=== PATIENT | female | born 1950 | race Caucasian/White ===

== ENCOUNTER 2017-02-10 10:36 | Emergency (ER) | payer MEDICARE ==
[2017-02-10 11:16] VITALS: RESP 18
--- NOTE | 2017-02-10 12:11 | RAD ---
PROCEDURE: Bilateral Knee Radiographs. HISTORY: knee pain, no trauma COMPARISON: None. FINDINGS: BONES: Right Knee: No fracture. Left Knee: No fracture. JOINTS: Right Knee: Mild tibial femoral compartment narrowing. Left knee: Mild tibiofemoral compartment narrowing. SOFT TISSUES: Right Knee: Normal. Left Knee: Normal. JOINT EFFUSION: Right Knee: None. Left Knee: None. OTHER FINDINGS: None. IMPRESSION: No demonstrated fracture or dislocation. Mild bilateral tibial femoral compartment narrowing.
--- NOTE | 2017-02-10 12:44 | ED PDOC ---
Lower Extremity Pain/Injury Time Seen by Provider: 02/10/17 10:56 Chief Complaint (Nursing): Lower Extremity Problem/Injury Chief Complaint (Provider): Bilateral knee pain, weakness History Per: Patient History/Exam Limitations: no limitations Onset/Duration Of Symptoms: Days Current Symptoms Are (Timing): Still Present Severity: Mild Pain Scale Rating Of: 3 Additional Complaint(s): Pt states she feels like both her knees are weak and she has trouble walking from pain. Pt states the more she walks the worse it feels. No swelling, no trauma. Past Medical History Reviewed: Historical Data, Nursing Documentation, Vital Signs Vital Signs: Last Vital Signs Temp 97.8 F 02/10/17 11:12 Pulse 103 H 02/10/17 11:12 Resp 18 02/10/17 11:12 BP 134/71 02/10/17 11:12 Pulse Ox 100 02/10/17 11:12 - Medical History PMH: Diabetes, HTN - Surgical History Surgical History: No Surg Hx - Family History Family History: States: No Known Family Hx - Living Arrangements Living Arrangements: With Family - Social History Current smoker - smoking cessation education provided: No - Home Medications Home Medications: Ambulatory Orders Medication Instructions Recorded Alendronate [Fosamax] 70 mg PO QD7 02/10/17 Glimepiride [Amaryl] 4 mg PO BID 02/10/17 Insulin Glargine,Hum.rec.anlog 300 units SQ HS 02/10/17 [Toujeo Solostar] Naproxen [Anaprox DS] 550 mg PO BID 02/10/17 Pravastatin Sodium [Pravachol] 20 mg PO HS 02/10/17 Sitagliptin Phos/Metformin HCl 1 tab PO BID 02/10/17 [Janumet 50-500 mg Tablet] - Allergies Allergies/Adverse Reactions: Allergies Allergy/AdvReac Type Severity Reaction Status Date / Time No Known Allergies Allergy Verified 02/10/17 11:16 Review of Systems ROS Statement: Except As Marked, All Systems Reviewed And Found Negative Constitutional: Negative for: Fever, Chills Musculoskeletal: Positive for: Leg Pain Physical Exam - Reviewed Nursing Documentation Reviewed: Yes Vital Signs Reviewed: Yes - Physical Exam Appears: Positive for: Well, Non-toxic, No Acute Distress Head Exam: Positive for: ATRAUMATIC, NORMAL INSPECTION, NORMOCEPHALIC Skin: Positive for: Normal Color (No erythema, no ecchymosis, no rash on bilateral LE), Warm Eye Exam: Positive for: Normal appearance ENT: Positive for: Normal ENT Inspection Neck: Positive for: Normal Respiratory: Negative for: Accessory Muscle Use, Respiratory Distress Pulses-Post. Tibialis (L): 2+ Pulses-Post. Tibialis (R): 2+ Back: Positive for: Normal Inspection Extremity: Positive for: Normal ROM, Capillary Refill. Negative for: Tenderness , Deformity, Swelling Neurologic/Psych: Positive for: Alert, Oriented - ECG O2 Sat by Pulse Oximetry: 100 Medical Decision Making Medical Decision Making: Discussed f/u with orthopedics. Pt states she has appointment with PMD in february. Disposition - Clinical Impression Clinical Impression: Bilateral knee pain - Patient ED Disposition Is Patient to be Admitted: No Counseled Patient/Family Regarding: Diagnosis, Need For Followup - Disposition Referrals: Roman Carrizales MD [Staff Provider] - Disposition: Routine/Home Disposition Time: 12:45 Condition: STABLE Instructions: Knee Pain (ED)
[2017-02-10 14:10] VITALS: BP 134/70; PULSE 70; TEMP 98.8; O2SAT 98
== END 2017-02-10 14:10 | disposition home or self-care (01) ==
LOC: H.ER 10:36
DX: M25.569 Pain in unspecified knee (principal); E11.9 Type 2 diabetes mellitus without complications; Z79.4 Long term (current) use of insulin; I10 Essential (primary) hypertension

== ENCOUNTER 2017-02-24 09:30 | Inpatient (IN) | payer MEDICARE ==
[2017-02-24] MEDS ORDERED: Dextrose 50% SYRINGE Inj (50 ml) IVP ONE (09:40)
--- NOTE | 2017-02-24 10:06 | ED PDOC ---
HPI: SOB/CHF/COPD Time Seen by Provider: 02/24/17 09:40 Chief Complaint (Nursing): Shortness Of Breath Chief Complaint (Provider): Shortness Of Breath History Per: Patient History/Exam Limitations: no limitations Onset/Duration Of Symptoms: Days (x2) Current Symptoms Are (Timing): Still Present Additional Complaint(s): 66 year old female with previous medical history of diabetes and hypertension, who presents to the emergency department via EMS with a complaint of progressively worsening shortness of breath on exertion associated with bilateral leg swelling ongoing for 2 days. Denied any cough, chest pain or dizziness. Blood glucose noted at 31 upon arrival to ED. Patient reported taking insulin injection this morning but did not have breakfast. PMD: none provided Past Medical History Reviewed: Historical Data, Nursing Documentation, Vital Signs Vital Signs: Last Vital Signs Temp Pulse Resp 18 02/24/17 09:43 BP Pulse Ox - Medical History PMH: Diabetes, HTN (denies) - Family History Family History: States: Unknown Family Hx - Social History Current smoker - smoking cessation education provided: Yes Alcohol: None Drugs: Denies - Home Medications Home Medications: Ambulatory Orders Medication Instructions Recorded Alendronate [Fosamax] 70 mg PO QD7 02/10/17 Glimepiride [Amaryl] 4 mg PO BID 02/10/17 Insulin Glargine,Hum.rec.anlog 300 units SQ HS 02/10/17 [Toujeo Solostar] Naproxen [Anaprox DS] 550 mg PO BID 02/10/17 Pravastatin Sodium [Pravachol] 20 mg PO HS 02/10/17 Sitagliptin Phos/Metformin HCl 1 tab PO BID 02/10/17 [Janumet 50-500 mg Tablet] - Allergies Allergies/Adverse Reactions: Allergies Allergy/AdvReac Type Severity Reaction Status Date / Time No Known Allergies Allergy Verified 02/10/17 11:16 Review of Systems ROS Statement: Except As Marked, All Systems Reviewed And Found Negative Cardiovascular: Negative for: Chest Pain Respiratory: Positive for: SOB with Exertion. Negative for: Cough Musculoskeletal: Positive for: Other (bilateral lower extremities) Physical Exam - Reviewed Nursing Documentation Reviewed: Yes Vital Signs Reviewed: Yes - Physical Exam ENT: Positive for: Other (dry mucous membranes) Cardiovascular/Chest: Positive for: Regular Rate, Rhythm, Chest Non Tender Respiratory: Positive for: Rales (and crepitus in right lower lobe). Negative for: Normal Breath Sounds, Respiratory Distress Gastrointestinal/Abdominal: Positive for: Normal Exam, Soft. Negative for: Tenderness Extremity: Positive for: Normal ROM (lower bilaterally). Negative for: Tenderness (lower bilaterally), Pedal Edema (bilateral), Calf Tenderness ( bilateral) Neurologic/Psych: Positive for: Alert (x3), apartment maintenance II-XII (intact), Oriented. Negative for: Motor/Sensory Deficits (or focal deficits) - Laboratory Results Result Diagrams: 02/24/17 10:31 02/24/17 10:31 Medical Decision Making Medical Decision Making: Initial Impression: Shortness of breath Initial Plan: * EKG * CMP * Troponin I * Urine dipstick * CBC * D Dimer * CXR * Dextrose 500ml IV per 100mls/hr * Dextrose 50% inj 50ml IVP Scribe Attestation: Documented by Sayda Aguilera, acting as a scribe for Mihir Gutierrez MD. Provider Scribe Attestation: All medical record entries made by the Scribe were at my direction and personally dictated by me. I have reviewed the chart and agree that the record accurately reflects my personal performance of the history, physical exam, medical decision making, and the department course for this patient. I have also personally directed, reviewed, and agree with the discharge instructions and disposition. Disposition - Clinical Impression Clinical Impression: Hypoglycemia, Hypercalcemia, Lung mass - Patient ED Disposition Is Patient to be Admitted: Yes - Disposition Disposition Time: 11:27 Condition: FAIR Forms: [employer] (Wallisian) - Pt Status Changed To: Hospital Disposition Of: Inpatient - Admit Certification Admit to Inpatient:: After my assessment, the patient will require hospitalization for at least two midnights. This is because of the severity of symptoms shown, intensity of services needed, and/or the medical risk in this patient being treated as an outpatient. - POA Present On Arrival: None
[2017-02-24 10:40] LABS: BASO % 0.6 % (0.0-2.0); EOS # 0.2 K/uL (0.0-0.7); EOS % 2.7 % (0.0-4.0); HEMOGLOBIN 9.8 g/dL (12.0-16.0); LYMPH # 1.5 K/uL (1.0-4.3); LYMPH % 18.5 % (20.0-40.0); MEAN CELL VOLUME 72.7 fl (81.0-99.0); MEAN CORPUSCULAR HEMOGLOBIN 23.2 pg (27.0-31.0); MEAN CORPUSCULAR HGB CONC 31.9 g/dL (33.0-37.0); MEAN PLATELET VOLUME 7.9 fl (7.2-11.7); MONO % 12.7 % (0.0-10.0); NEUT # 5.3 K/uL (1.8-7.0); NEUT % 65.5 % (50.0-75.0); RBC 4.2 Mil/uL (3.80-5.20); RED CELL DISTRIBUTION WIDTH 18.6 % (11.5-14.5)
[2017-02-24 11:03] LABS: ALB/GLOB RATIO 0.7 (1.0-2.1); ALBUMIN 3.3 g/dL (3.5-5.0); ALT/SGPT 33 U/L (9-52); AST/SGOT 54 U/L (14-36); BLOOD UREA NITROGEN 13 mg/dl (7-17); CALCIUM 13.6 mg/dL (8.4-10.2); GFR AFRICAN-AMERICAN > 60; GFR NON-AFRICAN AMERICAN > 60
[2017-02-24] MEDS ORDERED: Sodium Chloride 0.9% 1,000 ML IV STA (11:11)
[2017-02-24] MEDS ORDERED: ZOLEDRONIC ACID 5 MG/100 ML IV ONE ×2 (11:11→18:36)
[2017-02-24] MEDS ORDERED: Potassium Chloride 20 mEq ER Tab PO ONE (11:11)
--- NOTE | 2017-02-24 11:44 | RAD ---
HISTORY: COMPARISON: 08/15/2016 TECHNIQUE: Chest PA and lateral FINDINGS: LINES AND TUBES: None. LUNG AND PLEURA: Since the prior examination, there has been significant interval increase in size of left upper lobe opacity measuring 6.9 x 6.5 cm. The lungs are hyperinflated and there is peribronchial thickening with streaky opacities in the lungs. There is biapical pleural thickening. There is bronchiectasis in the left lower lobe. HEART AND MEDIASTINUM: The heart is not enlarged. The hilar and mediastinal contours are within normal limits. SKELETAL STRUCTURES: The bony structures are within normal limits for the patient's age. VISUALIZED UPPER ABDOMEN: Normal. OTHER FINDINGS: None. IMPRESSION: Findings are concerning for left upper lobe mass significantly increased in size since the prior examination now measuring 6.[address] scan of the thorax with intravenous contrast is recommended for further evaluation. COPD. Left lower lobe bronchiectasis.
[2017-02-24] MEDS ORDERED: Iodixanol 320 MG/ML 100 ML BOTTLE IV ONE ×2 (12:48→15:39)
[2017-02-24] MEDS ORDERED: Sodium Chloride 0.9% 50 ML IV ONE ×2 (12:49→15:39)
[2017-02-24] MEDS ORDERED: Diatriz Meglumine/Diatriz Sod 30 ML BOTTLE PO ONE (12:55)
[2017-02-24] MEDS ORDERED: Iohexol 240 (50 ml) PO ONE (12:55)
[2017-02-24] MEDS ORDERED: Iohexol 240 (50 ml) ONE (13:11)
--- NOTE | 2017-02-24 13:29 | CP.PCM.HP ---
History of Present Illness - History of Present Illness History of Present Illness: Family Medicine H&P 66 year old female PMHx IDDM, HLD, osteoporosis, hx of lung mass seen in ED regarding worsening SOB on exertion. Patient reports SOB that started 3 weeks ago; states she has to take frequent breaks when cooking, cleaning, or walking short distances. Denies any cough, chest pain, or hemoptysis. Patient admits to current daily tobacco use (1/2 PPD for 15 years). Patient also complains of generalized weakness and lethargy. Per chart, blood glucose was found to be 31 upon presentation to [facility] ED; patient reported taking insulin injection this morning but did not have breakfast. Patient also complains of weakness in both legs with associated swelling in her feet. Patient states her Metformin dosage medication was changed approximately 6 months ago and believes that since then she has lost 25 pounds and has become more weak with worsening balance issues. Patient was previously seen in [facility] for COPD follow up visit and to discuss significant findings of lung mass on CXR; patient refused as she did not want to have further testing or discuss findings on imaging. Today, patient is agreeable to further evaluation of lung mass however does not want to have case discussed with family. Denies any nausea, vomiting, fever, diarrhea, chills, abd pain, chest pain, or palpitations. ED Course: CBC w/diff: 8.0>9.8/30.6<417 CMP: 142/3.3, 103/32, 13/0.8, glucose 52, calcium 13.6, albumin 3.3 D-dimer: 744 EKG: NSR, RBBB Troponin I: < 0.0120 CXR: Left upper lobe mass measuring 6.9 x 6.5cm, increased in size since prior exam Dextrose 500ml IV per 100mls/hr Dextrose 50% inj 50ml IVP PMHx: IDDM, HLD, osteoporosis, hx of pancreatitis, hx of lung mass PSH: gall bladder sx, ORIF left ankle FH: Mother had DM, HTN, HLD; father had cancer/unknown SH: Current tobacco use (1/2 PPD for 15 years), previous ETOH abuse for 15 years (quit 11 years ago), denies illicit drug use; pt does not want to have case discussed with family All: NKDA ROS: 12 points assessed and negative unless otherwise reported in HPI Present on Admission - Present on Admission Any Indicators Present on Admission: Yes History of Uncontrolled Diabetes: Yes Review of Systems - Review of Systems All systems: reviewed and no additional remarkable complaints except (as per HPI ) Past Patient History - Infectious Disease Hx of Infectious Diseases: None - Past Social History Alcohol: None Drugs: Denies - CARDIAC Hx Hypertension: Yes (denies) - PULMONARY Hx Respiratory Disorders: No - NEUROLOGICAL Hx Neurological Disorder: No - ENDOCRINE/METABOLIC Hx Endocrine Disorders: Yes Hx Diabetes Mellitus Type 2: Yes - HEMATOLOGICAL/ONCOLOGICAL Hx Blood Disorders: No - INTEGUMENTARY Hx Dermatological Problems: No - MUSCULOSKELETAL/RHEUMATOLOGICAL Hx Musculoskeletal Disorders: Yes Other/Comment: left leg fracture - GASTROINTESTINAL Hx Gastrointestinal Disorders: No - GENITOURINARY/GYNECOLOGICAL Hx Genitourinary Disorders: No - PSYCHIATRIC Hx Psychophysiologic Disorder: No Hx Substance Use: No - SURGICAL HISTORY Hx Surgeries: Yes Other/Comment: left leg surgery - ANESTHESIA Hx Anesthesia: Yes Hx Anesthesia Reactions: No Meds Allergies/Adverse Reactions: Allergies Allergy/AdvReac Type Severity Reaction Status Date / Time No Known Allergies Allergy Verified 02/10/17 11:16 Physical Exam - Constitutional Appears: Toxic, Cachectic - Head Exam Head Exam: ATRAUMATIC, NORMAL INSPECTION, NORMOCEPHALIC - Eye Exam Eye Exam: EOMI, Normal appearance Pupil Exam: NORMAL ACCOMODATION, PERRL - ENT Exam ENT Exam: Mucous Membranes Moist, Normal Exam - Neck Exam Neck exam: Positive for: Full Rom, Normal Inspection. Negative for: Tenderness - Respiratory Exam Respiratory Exam: Decreased Breath Sounds, Rhonchi. absent: Chest Wall Tenderness, Wheezes - Cardiovascular Exam Cardiovascular Exam: REGULAR RHYTHM, +S1, +S2 - GI/Abdominal Exam GI & Abdominal Exam: Normal Bowel Sounds, Soft. absent: Tenderness - Extremities Exam Extremities exam: Positive for: normal capillary refill, pedal edema (+2 pitting pedal edema L>R). Negative for: calf tenderness - Back Exam Back exam: NORMAL INSPECTION. absent: CVA tenderness (L), CVA tenderness (R), tenderness - Neurological Exam Neurological exam: Alert, Oriented x3 - Psychiatric Exam Psychiatric exam: Normal Affect, Normal Mood - Skin Skin Exam: Dry, Intact, Normal Color, Warm Results - Vital Signs Recent Vital Signs: Last Vital Signs Temp Pulse Resp 18 02/24/17 09:43 BP Pulse Ox - Labs Result Diagrams: 02/24/17 10:31 02/24/17 10:31 Labs: Laboratory Results - last 24 hr 02/24/17 02/24/17 02/24/17 10:18 10:31 10:31 WBC 8.0 RBC 4.20 Hgb 9.8 L Hct 30.6 L MCV 72.7 L D MCH 23.2 L MCHC 31.9 L RDW 18.6 H Plt Count 417 H MPV 7.9 Neut % (Auto) 65.5 Lymph % (Auto) 18.5 L [place] % (Auto) 12.7 H Eos % (Auto) 2.7 Baso % (Auto) 0.6 Neut # 5.3 Lymph # 1.5 [place] # 1.0 H Eos # 0.2 Baso # 0.0 D-Dimer, Quantitative Sodium 142 Potassium 3.3 L Chloride 103 Carbon Dioxide 32 H Anion Gap 10 BUN 13 Creatinine 0.8 Est GFR ( Amer) > 60 Est GFR (Non-Af Amer) > 60 POC Glucose (mg/dL) 80 Random Glucose 52 L Calcium 13.6 H* D Total Bilirubin 0.2 AST 54 H D ALT 33 Alkaline Phosphatase 99 Troponin I < 0.0120 Total Protein 8.3 H Albumin 3.3 L Globulin 4.9 H Albumin/Globulin Ratio 0.7 L 02/24/17 02/24/17 10:31 11:37 WBC RBC Hgb Hct MCV MCH MCHC RDW Plt Count MPV Neut % (Auto) Lymph % (Auto) [place] % (Auto) Eos % (Auto) Baso % (Auto) Neut # Lymph # [place] # Eos # Baso # D-Dimer, Quantitative 744 H Sodium Potassium Chloride Carbon Dioxide Anion Gap BUN Creatinine Est GFR ( Amer) Est GFR (Non-Af Amer) POC Glucose (mg/dL) 129 H Random Glucose Calcium Total Bilirubin AST ALT Alkaline Phosphatase Troponin I Total Protein Albumin Globulin Albumin/Globulin Ratio Assessment & Plan (1) Dyspnea Status: Acute (2) Hypoglycemia Status: Acute (3) Hypercalcemia Status: Acute (4) Lung mass Status: Acute (5) Type 2 diabetes mellitus Status: Acute (6) Hyperlipidemia Status: Acute (7) Osteoporosis Status: Acute (8) Underweight Status: Acute (9) DVT prophylaxis Status: Acute - Assessment and Plan (Free Text) Assessment: (1) Dyspnea EKG: NSR, R BBB CXR: Left upper lobe mass measuring 6.9 x 6.5 cm. COPD. left lower lobe bronchiectasis. D-dimer increased @ 744 CTA ordered r/o PE Albuterol 2 puff INH q6 prn Nicotine patch 14mg/24h (2) Hypoglycemia Home meds: glimepiride, insulin glargine -hold glimepiride for now Dextrose 50% inj 50ml IVP given in ED IVF started - NS 250 mL/hr Continue to monitor (3) Hypercalcemia Ca = 13.6 Zoledronic Acid 5mg IV given in ED PTH ordered Will continue to monitor Consider calcitonin if Ca increases above 14 Consider PO bisphosphonate upon d/c (4) Lung mass CXR: Left upper lobe mass significantly increased in size since prior examination now measuring 6.9 x 6.5 cm. COPD. left lower lobe bronchiectasis. Previous CXR (08/15/16): Left upper lobe mass/infiltrate measures approximately 4.[address] C/A/P w/contrast ordered Brain MRI w/contrast ordered HemeOnc consulted, f/u recs (5) Type 2 diabetes mellitus Home meds: glimepiride, insulin glargine -hold glimepiride for now Last A1c (11/25/16) 7.5 Insulin sliding scale Accuchecks ACHS (6) Hyperlipidemia Home med: pravastatin 20mg PO HS (7) Osteoporosis Hold bisphosphonate No calcium/vitamin D indicated as levels are not deficient (8) Underweight Heart healthy diet Glucerna supplements Nutrition consult (9) DVT prophylaxis Lovenox 40mg SC QD
[2017-02-24] MEDS ORDERED: Glucagon Recombinant 1 mg Inj IM PRN (14:37)
[2017-02-24] MEDS ORDERED: Dextrose 50% SYRINGE Inj (50 ml) IV PRN (14:37)
[2017-02-24] MEDS ORDERED: Albuterol HFA 90 mcg/actuation (8 g) INH PRN (14:45)
[2017-02-24] MEDS: Sodium Chloride 0.9% 1,000 ML IV SCH (16:32)
--- NOTE | 2017-02-24 19:33 | CT ---
EXAM: CT Angiography Chest With Intravenous Contrast CLINICAL HISTORY: 66 years old, female; Signs and symptoms; Other: Hypoglycemia, hypercalcemia; Shortness of breath; Additional info: Rul lung mass. R/O p. E. Hypoglycemia. Hypercalcemia TECHNIQUE: Axial computed tomographic angiography images of the chest with intravenous contrast using pulmonary embolism protocol. All CT scans at this facility use one or more dose reduction techniques, viz.: automated exposure control; ma/kV adjustment per patient size (including targeted exams where dose is matched to indication; i.e. head); or iterative reconstruction technique. MIP reconstructed images were created and reviewed. Coronal and sagittal reformatted images were created and reviewed. CONTRAST: 80 mL of [id number] administered intravenously. COMPARISON: No relevant prior studies available. FINDINGS: Heart, aorta and pulmonary arteries Pulmonary arteries: Heart size is normal. There is pericardial thickening. Aorta is normal in caliber. There is perfusion of the 3 arch vessels. Main pulmonary artery is dilated, 3.2 cm in diameter.There are no pulmonary emboli. Lungs and pleural spaces: Trachea and main bronchi are patent. There are paraseptal emphysematous changes in the upper lobes. There are centrilobular emphysematous changes in the upper lobes. There is fibrosis at the lung bases. There is a small left pleural effusion. There is a 7 mm right upper lobe pulmonary nodule. There is a pleural-based 1 x 1.5 x 2 cm left lower lobe nodule. There is a lobulated 8.2 x 7.4 x 8.9 cm left upper lobe mass with infiltration of the adjacent mediastinum and left hilum. There is encasement of the main left pulmonary artery and its peripheral branches. There is narrowing and attenuation of left upper lobe pulmonary branches. There is encasement of the distal left main pulmonary bronchus. There is narrowing and occlusion of left upper lobe bronchi. Mediastinum: There is mediastinal infiltration by the left upper lobe mass. There are enlarged mediastinal nodes. There is left hilar adenopathy contiguous with the mass. There is subcarinal adenopathy. There is shotty right hilar adenopathy. Thyroid: Thyroid is not optimally demonstrated. Bones/joints: Bony structures are osteopenic. There are degenerative changes. Soft tissues: unremarkable Upper abdomen: Refer to report for abdominal findings IMPRESSION: No aneurysm, dissection or pulmonary embolus; emphysema and fibrosis; 8.2 x 7.4 x 8.9 cm left upper lobe mass encasing and narrowing left upper lobe pulmonary arteries and bronchi and infiltrating the mediastinum, findings are consistent with malignancy; emphysema and fibrosis; right upper lobe pulmonary nodule suspicious for metastasis; left lower lobe pleural-based nodule suspicious for metastasis; small left effusion Additional findings as described above. EXAM: CT Abdomen and Pelvis With Intravenous Contrast EXAM DATE/TIME: 02/24/2017 12:55 PM CLINICAL HISTORY: 66 years old, female; Signs and symptoms; Other: Hypoglycemia, hypercalcemia; Shortness of breath; Additional info: Rul lung mass. R/O p. E. Hypoglycemia. Hypercalcemia TECHNIQUE: Axial computed tomography images of the abdomen and pelvis with intravenous contrast. All CT scans at this facility use one or more dose reduction techniques, viz.: automated exposure control; ma/kV adjustment per patient size (including targeted exams where dose is matched to indication; i.e. head); or iterative reconstruction technique. Coronal and sagittal reformatted images were created and reviewed. CONTRAST: 80 mL of [id number] administered intravenously. COMPARISON: CT - ABDOMEN^ABD ROUTINE WO W (ADULT) 2009-01-19 13:55.Report of the prior study is not available for review. FINDINGS: Lower thorax: Refer to prior report for chest findings ABDOMEN: Liver: There are calcifications in the dome of the liver, unchanged. Liver appears mildly enlarged. No focal masses are seen in the liver. There is prominence of the left and caudate lobes. Gallbladder and bile ducts: Gallbladder is absent.There is prominence of the common duct. Pancreas: Pancreas is atrophic. There are coarse calcifications in the pancreatic head. There were one or 2 coarse calcifications in the pancreatic tail. Pancreatic duct is dilated. Spleen: unremarkable Adrenals: unremarkable Kidneys and ureters: There is a small left renal cyst.bKidneys and ureters are otherwise unremarkable. Stomach and bowel: Stomach is incompletely distended which accentuates the gastric wall. Rotation is normal. Proximal small bowel is mildly dilated. There are scattered air-fluid levels. There is mild wall and fold prominence. Distention wall and fold prominence decreased distally. There is no small bowel obstruction. Terminal ileum is unremarkable.There is no pericecal inflammation. There is moderate contrast, stool and air in the colon. Appendix: See stomach and bowel PELVIS: Bladder: unremarkable Reproductive: Uterus and adnexal structures are unremarkable. ABDOMEN and PELVIS: Intraperitoneal space: There is no significant fluid.There is no free air. Bones/joints: There are degenerative changes in the osseus structures. Soft tissues: unremarkable Vasculature: There are vascular calcifications. Lymph nodes: There is no pathologic adenopathy. IMPRESSION: Mild hepatomegaly, unchanged calcifications in the dome of the liver; chronic calcific pancreatitis with pancreatic atrophy; prominent gastric wall, under distention versus true thickening; proximal small bowel dilatation with wall and fold prominence suggesting enteritis; possible constipation Additional findings as described above.
[2017-02-24 19:59] LABS: IRON 19 ug/dL (37-170)
[2017-02-24 20:08] LABS: TOTAL IRON BINDING CAPACITY 218 ug/dL (250-450)
[2017-02-24 20:18] LABS: % IRON SATURATION 9 % (20-55)
[2017-02-24 20:35] LABS: FERRITIN 74.9 ng/Ml (11.1-264.0)
[2017-02-24] MEDS: Pravastatin Sodium 20 MG TAB PO SCH (21:31)
[2017-02-24] MEDS: Insulin Regular 100 units/ml SC SCH (21:33)
[2017-02-24] MEDS ORDERED: INSULIN GLARGINE HUM REC ANLOG 300 UNIT SQ SCH (22:00)
[2017-02-25] MEDS: Sodium Chloride 0.9% 1,000 ML IV SCH ×2 (00:30→11:00)
[2017-02-25 05:50] LABS: HEMOGLOBIN 9.2 g/dL (12.0-16.0); MEAN CELL VOLUME 73.5 fl (81.0-99.0); MEAN CORPUSCULAR HEMOGLOBIN 22.9 pg (27.0-31.0); MEAN CORPUSCULAR HGB CONC 31.1 g/dL (33.0-37.0); RBC 4.04 Mil/uL (3.80-5.20); RED CELL DISTRIBUTION WIDTH 19.5 % (11.5-14.5); WHITE BLOOD COUNT 10.5 K/uL (4.8-10.8)
[2017-02-25 06:09] LABS: ALB/GLOB RATIO 0.6 (1.0-2.1); ALBUMIN 2.7 g/dL (3.5-5.0); ALT/SGPT 38 U/L (9-52); AST/SGOT 40 U/L (14-36); BLOOD UREA NITROGEN 13 mg/dl (7-17); CALCIUM 11.6 mg/dL (8.4-10.2); GFR AFRICAN-AMERICAN > 60; GFR NON-AFRICAN AMERICAN 55
[2017-02-25] MEDS: ALENDRONATE 70 MG TAB PO SCH (06:44)
[2017-02-25] MEDS: Insulin Regular 100 units/ml SC SCH ×4 (06:45→21:42)
--- NOTE | 2017-02-25 07:01 | CP.PCM.PN ---
Subjective - Date & Time of Evaluation Date of Evaluation: 02/25/17 Time of Evaluation: 06:59 - Subjective Subjective: Family Medicine Progress Note 66 year old female PMHx IDDM, HLD, osteoporosis, hx of lung mass seen and evaluated at bedside this AM. No acute events overnight. Reports improvement in SOB. Ambulation improving; denies any current lower extremity weakness or balance issues. Aware she is scheduled for brain MRI this AM. Denies cough, chest pain, hemoptysis, palpitations, abd pain, nausea, vomiting, fever, diarrhea, chills. Objective - Vital Signs/Intake and Output Vital Signs (last 24 hours): Temp Pulse Resp BP Pulse Ox 98.5 F 70 18 108/51 L 95 02/25/17 05:40 02/25/17 05:40 02/25/17 05:40 02/25/17 05:40 02/25/17 05:40 - Medications Medications: Current Medications Acetaminophen (Tylenol 325mg Tab) 650 mg PO Q6 PRN PRN Reason: Pain, Mild (1-3) Albuterol (Ventolin Hfa 90 Mcg/Actuation (8 G)) 2 puff INH RQ6 PRN PRN Reason: Shortness of Breath Alendronate Sodium (Fosamax) 70 mg PO QD7 [facility] Last Admin: 02/25/17 06:44 Dose: 70 mg Aspirin (Ecotrin) 81 mg PO DAILY [facility] Dextrose (Dextrose 50% Inj) 0 ml IV STAT PRN; Protocol PRN Reason: Hypoglycemia Protocol Dextrose (Glutose 15) 0 gm PO ONCE PRN; Protocol PRN Reason: Hypoglycemia Protocol Enoxaparin Sodium (Lovenox) 40 mg SC DAILY [facility] PRN Reason: Protocol Glucagon (Glucagen Diagnostic Kit) 0 mg IM STAT PRN; Protocol PRN Reason: Hypoglycemia Protocol Sodium Chloride (Sodium Chloride 0.9%) 1,000 mls @ 100 mls/hr IV .Q10H [facility] Last Admin: 02/25/17 00:30 Dose: 100 mls/hr Insulin Human Regular (Humulin R) 0 units SC ACHS [facility] PRN Reason: Protocol Last Admin: 02/25/17 06:45 Dose: 1 u Nicotine (Nicoderm Cq) 1 patch TD DAILY [facility] Pravastatin Sodium (Pravachol) 20 mg PO HS [facility] Last Admin: 02/24/17 21:31 Dose: 20 mg Sitagliptin Phosphate (Januvia) 100 mg PO DAILY [facility] - Labs Labs: 02/25/17 04:15 02/25/17 04:15 - Constitutional Appears: Toxic, Cachectic - Head Exam Head Exam: ATRAUMATIC, NORMAL INSPECTION, NORMOCEPHALIC - Eye Exam Eye Exam: EOMI, Normal appearance Pupil Exam: NORMAL ACCOMODATION, PERRL - ENT Exam ENT Exam: Mucous Membranes Moist, Normal Exam - Neck Exam Neck Exam: Full ROM, Normal Inspection. absent: Tenderness - Respiratory Exam Respiratory Exam: Decreased Breath Sounds, Rhonchi. absent: Chest Wall Tenderness, Wheezes - Cardiovascular Exam Cardiovascular Exam: REGULAR RHYTHM, +S1, +S2 - GI/Abdominal Exam GI & Abdominal Exam: Soft, Normal Bowel Sounds. absent: Tenderness - Extremities Exam Extremities Exam: Normal Capillary Refill, Pedal Edema. absent: Calf Tenderness Additional comments: +1 pitting pedal edema L>R, decreasing - Back Exam Back Exam: NORMAL INSPECTION. absent: CVA tenderness (L), CVA tenderness (R) - Neurological Exam Neurological Exam: Alert, Awake, Oriented x3 - Psychiatric Exam Psychiatric exam: Normal Affect, Normal Mood - Skin Skin Exam: Dry, Intact, Normal Color, Warm Assessment and Plan (1) Dyspnea Status: Acute (2) Hypoglycemia Status: Acute (3) Hypercalcemia Status: Acute (4) Lung mass Status: Acute (5) Type 2 diabetes mellitus Status: Acute (6) Hyperlipidemia Status: Acute (7) Osteoporosis Status: Acute (8) Underweight Status: Acute (9) DVT prophylaxis Status: Acute - Assessment and Plan (Free Text) Assessment: 66 year old female PMHx IDDM, HLD, osteoporosis, hx of lung mass admitted for dyspnea, hypoglycemia, and hypercalcemia. (1) Dyspnea EKG: NSR, R BBB CXR: Left upper lobe mass measuring 6.9 x 6.5 cm. COPD. left lower lobe bronchiectasis. D-dimer increased @ 744 CTA ordered r/o PE: -No aneurysm/dissection/PE; emphysema and fibrosis; -8.2 x 7.4 x 8.9 cm L upper lobe mass encasing and narrowing L upper lobe pulmonary aa. and bronchi, infiltrating the mediastinum consistent with malignancy -7mm R upper lobe pulmonary nodule suspicious for metastasis -1 x 1.5 x 2 cm L lower lobe nodule pleural-based nodule suspicious for metastasis Albuterol 2 puff INH q6 prn Nicotine TD QD (2) Hypoglycemia Home meds: glimepiride, insulin glargine -hold glimepiride for now Dextrose 50% inj 50ml IVP given in ED IVF NS 100 mL/hr Continue to monitor (3) Hypercalcemia Zoledronic Acid 5mg IV given in ED Ca 13.6 on admission, 11.6 today 02/25/17 Albumin 2.7 -Corrected Calcium = 12.6 f/u PTH f/u TSH, T4 Endocrine consulted f/u recs Consider calcitonin if Ca increases above 14 Consider bisphosphonate PO upon d/c (4) Lung mass CXR: Left upper lobe mass significantly increased in size since prior examination now measuring 6.9 x 6.5 cm. COPD. left lower lobe bronchiectasis. Previous CXR (08/15/16): Left upper lobe mass/infiltrate measures approximately 4.[address] C/A/P w/contrast: -Mild hepatomegaly, unchanged calcifications in liver -Chronic calcific pancreatitis w/pancreatic atrophy -Prominent gastric wall under distention vs. true thickening -Proximal small bowel dilation with wall and fold prominence suggesting enteritis Brain MRI w/contrast negative for intracranial metastasis IR consulted, f/u recs HemeOnc consulted, f/u recs f/u SPEP/UPEP r/o multiple myeloma Aspergillus serum Ab & antigen ordered r/o aspirgilloma (5) Type 2 diabetes mellitus Home meds: glimepiride, insulin glargine -hold glimepiride for now Last A1c (11/25/16) 7.5 Insulin sliding scale Heart Healthy Diet Accuchecks ACHS (6) Hyperlipidemia Home med: pravastatin 20mg PO HS (7) Osteoporosis Hold bisphosphonate No calcium/vitamin D indicated as levels are not deficient (8) Underweight Heart healthy diet Glucerna supplements Nutrition consult (9) DVT prophylaxis Lovenox 40mg SC QD
[2017-02-25] MEDS ORDERED: Gadodiamide 287 MG/ML VIAL (15ML) IV ONE (08:15)
--- NOTE | 2017-02-25 08:45 | CP.PCM.CON ---
History of Present Illness - History of Present Illness History of Present Illness: 66 year old female with a history of tobacco abuse, COPD, admitted with shortness of breath, with lung mass and hypercalcemia. The patient apparently has deferred work up of her lung mass in the past. She notes to progressive shortness of breath limiting her ADLs. She denies fevers and chills. She denies abnormal bleeding and bruising. A CT scan of the chest revealed a left upper lobe mass invading into the mediastinum and contralateral lung nodule concerning for metastasis. An MRI of the brain was negative for brain metastasis. Past medical history: COPD, tobacco abuse Past surgical history: Denies Family history: Father of lung cancer; smoker Social history: 1/2ppd x 20 years, denies alcohol, and illicit drug use. Allergies: NKA Review of systems: All remaining review of systems including HEENT, cardiovascular, respiratory, gastrointestinal, genitourinary, musculoskeletal, dermatologic, neurologic, and psychiatric are negative unless mentioned in the HPI. Past Patient History - Infectious Disease Hx of Infectious Diseases: None - Past Medical History & Family History Past Medical History?: Yes - Past Social History Smoking Status: Current Some Days Smoker - CARDIAC Hx Hypertension: Yes (denies) - PULMONARY Hx Respiratory Disorders: No - NEUROLOGICAL Hx Neurological Disorder: No - ENDOCRINE/METABOLIC Hx Endocrine Disorders: Yes (DM) - HEMATOLOGICAL/ONCOLOGICAL Hx Blood Disorders: No - INTEGUMENTARY Hx Dermatological Problems: No - MUSCULOSKELETAL/RHEUMATOLOGICAL Hx Falls: No - GASTROINTESTINAL Hx Gastrointestinal Disorders: No - GENITOURINARY/GYNECOLOGICAL Hx Genitourinary Disorders: No - PSYCHIATRIC Hx Substance Use: No - SURGICAL HISTORY Hx Surgeries: Yes Other/Comment: left leg surgery - ANESTHESIA Hx Anesthesia: Yes Hx Anesthesia Reactions: No Hx Malignant Hyperthermia: No Has any member of the family had a problem w/ anesthesia?: No Meds Allergies/Adverse Reactions: Allergies Allergy/AdvReac Type Severity Reaction Status Date / Time No Known Allergies Allergy Verified 02/10/17 11:16 - Medications Medications: Current Medications Acetaminophen (Tylenol 325mg Tab) 650 mg PO Q6 PRN PRN Reason: Pain, Mild (1-3) Albuterol (Ventolin Hfa 90 Mcg/Actuation (8 G)) 2 puff INH RQ6 PRN PRN Reason: Shortness of Breath Alendronate Sodium (Fosamax) 70 mg PO QD7 [facility] Last Admin: 02/25/17 06:44 Dose: 70 mg Aspirin (Ecotrin) 81 mg PO DAILY [facility] Dextrose (Dextrose 50% Inj) 0 ml IV STAT PRN; Protocol PRN Reason: Hypoglycemia Protocol Dextrose (Glutose 15) 0 gm PO ONCE PRN; Protocol PRN Reason: Hypoglycemia Protocol Docusate Sodium (Colace) 100 mg PO BID [facility] Enoxaparin Sodium (Lovenox) 40 mg SC DAILY [facility] PRN Reason: Protocol Ferrous Sulfate (Feosol) 325 mg PO TID [facility] Glucagon (Glucagen Diagnostic Kit) 0 mg IM STAT PRN; Protocol PRN Reason: Hypoglycemia Protocol Sodium Chloride (Sodium Chloride 0.9%) 1,000 mls @ 100 mls/hr IV .Q10H [facility] Last Admin: 02/25/17 00:30 Dose: 100 mls/hr Insulin Human Regular (Humulin R) 0 units SC ACHS [facility] PRN Reason: Protocol Last Admin: 02/25/17 06:45 Dose: 1 u Nicotine (Nicoderm Cq) 1 patch TD DAILY [facility] Pravastatin Sodium (Pravachol) 20 mg PO HS [facility] Last Admin: 02/24/17 21:31 Dose: 20 mg Sitagliptin Phosphate (Januvia) 100 mg PO DAILY [facility] Physical Exam - Head Exam Head Exam: ATRAUMATIC - Eye Exam Eye Exam: Normal appearance - ENT Exam ENT Exam: Mucous Membranes Dry - Respiratory Exam Respiratory Exam: Decreased Breath Sounds - Cardiovascular Exam Cardiovascular Exam: +S1, +S2 - GI/Abdominal Exam GI & Abdominal Exam: Normal Bowel Sounds - Extremities Exam Extremities exam: Positive for: normal inspection - Neurological Exam Neurological exam: Oriented x3 - Psychiatric Exam Psychiatric exam: Normal Affect, Normal Mood - Skin Skin Exam: Warm Results - Vital Signs Recent Vital Signs: Last Vital Signs Temp 98.0 F 02/25/17 07:41 Pulse 62 02/25/17 07:41 Resp 18 02/25/17 07:41 BP 106/62 02/25/17 07:41 Pulse Ox 99 02/25/17 07:41 - Labs Result Diagrams: 02/25/17 04:15 02/25/17 04:15 Labs: Laboratory Results - last 24 hr 02/24/17 02/24/17 02/24/17 10:18 10:31 10:31 WBC 8.0 RBC 4.20 Hgb 9.8 L Hct 30.6 L MCV 72.7 L D MCH 23.2 L MCHC 31.9 L RDW 18.6 H Plt Count 417 H MPV 7.9 Neut % (Auto) 65.5 Lymph % (Auto) 18.5 L Ida % (Auto) 12.7 H Eos % (Auto) 2.7 Baso % (Auto) 0.6 Neut # 5.3 Lymph # 1.5 Ida # 1.0 H Eos # 0.2 Baso # 0.0 D-Dimer, Quantitative Sodium 142 Potassium 3.3 L Chloride 103 Carbon Dioxide 32 H Anion Gap 10 BUN 13 Creatinine 0.8 Est GFR ( Amer) > 60 Est GFR (Non-Af Amer) > 60 POC Glucose (mg/dL) 80 Random Glucose 52 L Calcium 13.6 H* D Iron TIBC % Saturation Ferritin Total Bilirubin 0.2 AST 54 H D ALT 33 Alkaline Phosphatase 99 Troponin I < 0.0120 Total Protein 8.3 H Albumin 3.3 L Globulin 4.9 H Albumin/Globulin Ratio 0.7 L Vitamin B12 02/24/17 02/24/17 02/24/17 10:31 11:37 18:37 WBC RBC Hgb Hct MCV MCH MCHC RDW Plt Count MPV Neut % (Auto) Lymph % (Auto) Ida % (Auto) Eos % (Auto) Baso % (Auto) Neut # Lymph # Ida # Eos # Baso # D-Dimer, Quantitative 744 H Sodium Potassium Chloride Carbon Dioxide Anion Gap BUN Creatinine Est GFR ( Amer) Est GFR (Non-Af Amer) POC Glucose (mg/dL) 129 H Random Glucose Calcium Iron 19 L TIBC 218 L % Saturation 9 L Ferritin Total Bilirubin AST ALT Alkaline Phosphatase Troponin I Total Protein Albumin Globulin Albumin/Globulin Ratio Vitamin B12 02/24/17 02/24/17 02/25/17 18:37 21:17 04:15 WBC 10.5 RBC 4.04 Hgb 9.2 L Hct 29.7 L MCV 73.5 L MCH 22.9 L MCHC 31.1 L RDW 19.5 H Plt Count 382 MPV Neut % (Auto) Lymph % (Auto) Ida % (Auto) Eos % (Auto) Baso % (Auto) Neut # Lymph # Ida # Eos # Baso # D-Dimer, Quantitative Sodium Potassium Chloride Carbon Dioxide Anion Gap BUN Creatinine Est GFR ( Amer) Est GFR (Non-Af Amer) POC Glucose (mg/dL) 103 Random Glucose Calcium Iron TIBC % Saturation Ferritin 74.9 Total Bilirubin AST ALT Alkaline Phosphatase Troponin I Total Protein Albumin Globulin Albumin/Globulin Ratio Vitamin B12 991 H 02/25/17 02/25/17 04:15 05:50 WBC RBC Hgb Hct MCV MCH MCHC RDW Plt Count MPV Neut % (Auto) Lymph % (Auto) Ida % (Auto) Eos % (Auto) Baso % (Auto) Neut # Lymph # Ida # Eos # Baso # D-Dimer, Quantitative Sodium 142 Potassium 3.9 Chloride 110 H Carbon Dioxide 25 Anion Gap 11 BUN 13 Creatinine 1.0 Est GFR ( Amer) > 60 Est GFR (Non-Af Amer) 55 POC Glucose (mg/dL) 172 H Random Glucose 195 H Calcium 11.6 H Iron TIBC % Saturation Ferritin Total Bilirubin 0.1 L AST 40 H D ALT 38 Alkaline Phosphatase 97 Troponin I Total Protein 7.0 Albumin 2.7 L Globulin 4.3 H Albumin/Globulin Ratio 0.6 L Vitamin B12 Assessment & Plan (1) Hypercalcemia Assessment and Plan: imaging negative for bone mets likely paraneoplatic from lung cancer s/p bisphosphonate IV fluids Status: Acute (2) Lung mass Assessment and Plan: for IR biopsy concerning for lung cancer staging suggests metastasis to mediastinal lymph nodes and contralateral lung further treatment recommendations based on pathology Status: Acute (3) Anemia Assessment and Plan: work up in progress Thank you for this interesting consult. Status: Acute
[2017-02-25] MEDS ORDERED: Enoxaparin 40 mg Syringe SC SCH (09:00)
--- NOTE | 2017-02-25 10:56 | MRI ---
PROCEDURE: MRI BRAIN WITH AND WITHOUT CONTRAST HISTORY: RUL lung mass COMPARISON: None. TECHNIQUE: Multiplanar, multisequence MR images of the brain were obtained with and without intravenous contrast enhancement. 10 cc Omniscan was injected intravenously. FINDINGS: HEMORRHAGE: None DWI: No evidence of an acute or early subacute infarction. BRAIN PARENCHYMA: There are mild chronic microangiopathic changes. There is no mass, mass effect or abnormal extra-axial fluid collection. Rocha-white matter differentiation is preserved. The midline sagittal structures are normal. There is no territorial infarction. ENHANCEMENT: No abnormal intracranial enhancement. VENTRICLES: There is mild age-related global parenchymal volume loss and proportionate enlargement of the ventricles and cortical sulci. CRANIUM: There is normal bone marrow signal pattern. ORBITS: Grossly unremarkable. PARANASAL SINUSES/MASTOIDS: Predominantly clear. VASCULAR SYSTEM: There are normal signal voids in the larger intracranial arteries. OTHER FINDINGS: None . IMPRESSION: 1. No acute intracranial abnormality. Specifically, no evidence of intracranial metastasis. 2. Mild chronic microangiopathic changes and mild age-related global parenchymal volume loss.
--- NOTE | 2017-02-25 11:11 | CARD ---
APPROVED REPORT EKG Measurement Heart [id number] <Conclusion> Normal sinus rhythm Right bundle branch block Abnormal ECG
[2017-02-25 13:54] LABS: HIV 1&2 ANTIBODY NEGATIVE (NEGATIVE)
[2017-02-25 14:08] LABS: FOLATE > 20.0 ng/mL
[2017-02-25 15:08] LABS: HEPATITIS C ANTIBODY Reactive (NEGATIVE)
[2017-02-25 15:45] LABS: INR 1.4 (0.9-1.2); PARTIAL THROMBOPLASTIN TIME 34.6 Seconds (25.6-37.1)
--- NOTE | 2017-02-25 15:53 | PCM.IRP ---
Chief Complaint: IR consulted to evaluate for percutaneous biopsy of large left upper lobe mass. Objective - Vital Signs/Intake and Output Vital Signs (last 24 hours): Vital Signs - 24 hr 02/24/17 02/24/17 02/24/17 16:28 17:12 19:42 Temperature 98.2 F 98.6 F Pulse Rate 73 88 Pulse Rate [ 64 Bilateral Radial] Respiratory 18 18 16 Rate Blood Pressure 100/58 L 94/57 L O2 Sat by Pulse 95 95 95 Oximetry 02/25/17 02/25/17 02/25/17 00:21 05:40 07:41 Temperature 99.2 F 98.5 F 98.0 F Pulse Rate 94 H 70 62 Pulse Rate [ Bilateral Radial] Respiratory 18 18 18 Rate Blood Pressure 94/56 L 108/51 L 106/62 O2 Sat by Pulse 94 L 95 99 Oximetry 02/25/17 12:00 Temperature 98.2 F Pulse Rate 81 Pulse Rate [ Bilateral Radial] Respiratory 18 Rate Blood Pressure 105/62 O2 Sat by Pulse 95 Oximetry Intake and Output (last 12 hours): Intake & Output 02/24/17 02/25/17 02/25/17 18:59 06:59 18:59 Weight 75 lb - Medications Medications: Current Medications Acetaminophen (Tylenol 325mg Tab) 650 mg PO Q6 PRN PRN Reason: Pain, Mild (1-3) Albuterol (Ventolin Hfa 90 Mcg/Actuation (8 G)) 2 puff INH RQ6 PRN PRN Reason: Shortness of Breath Alendronate Sodium (Fosamax) 70 mg PO QD7 [facility] Last Admin: 02/25/17 06:44 Dose: 70 mg Aspirin (Ecotrin) 81 mg PO DAILY [facility] Last Admin: 02/25/17 09:18 Dose: 81 mg Dextrose (Dextrose 50% Inj) 0 ml IV STAT PRN; Protocol PRN Reason: Hypoglycemia Protocol Dextrose (Glutose 15) 0 gm PO ONCE PRN; Protocol PRN Reason: Hypoglycemia Protocol Docusate Sodium (Colace) 100 mg PO BID [facility] Last Admin: 02/25/17 09:24 Dose: 100 mg Enoxaparin Sodium (Lovenox) 40 mg SC DAILY [facility] PRN Reason: Protocol Last Admin: 02/25/17 09:18 Dose: 40 mg Ferrous Sulfate (Feosol) 325 mg PO TID [facility] Last Admin: 02/25/17 13:09 Dose: 325 mg Glucagon (Glucagen Diagnostic Kit) 0 mg IM STAT PRN; Protocol PRN Reason: Hypoglycemia Protocol Sodium Chloride (Sodium Chloride 0.9%) 1,000 mls @ 100 mls/hr IV .Q10H [facility] Last Admin: 02/25/17 11:00 Dose: 100 mls/hr Insulin Human Regular (Humulin R) 0 units SC ACHS [facility] PRN Reason: Protocol Last Admin: 02/25/17 13:18 Dose: 2 units Nicotine (Nicoderm Cq) 1 patch TD DAILY [facility] Last Admin: 02/25/17 09:17 Dose: 1 patch Pravastatin Sodium (Pravachol) 20 mg PO HS [facility] Last Admin: 02/24/17 21:31 Dose: 20 mg Sitagliptin Phosphate (Januvia) 100 mg PO DAILY [facility] Last Admin: 02/25/17 09:17 Dose: 100 mg - Labs Labs (last 24 hours): Laboratory Results - last 24 hr 02/24/17 02/24/17 02/24/17 11:40 18:37 18:37 WBC RBC Hgb Hct MCV MCH MCHC RDW Plt Count PT INR APTT Sodium Potassium Chloride Carbon Dioxide Anion Gap BUN Creatinine Est GFR ( Amer) Est GFR (Non-Af Amer) POC Glucose (mg/dL) Random Glucose Calcium Iron 19 L TIBC 218 L % Saturation 9 L Ferritin 74.9 Total Bilirubin AST ALT Alkaline Phosphatase Total Protein Albumin Globulin Albumin/Globulin Ratio Vitamin B12 991 H Folate > 20.0 PTH Intact Whole Molec 3 L Hepatitis C Antibody Reactive HIV 1&2 Antibody Screen Negative 02/24/17 02/25/17 02/25/17 21:17 04:15 04:15 WBC 10.5 RBC 4.04 Hgb 9.2 L Hct 29.7 L MCV 73.5 L MCH 22.9 L MCHC 31.1 L RDW 19.5 H Plt Count 382 PT INR APTT Sodium 142 Potassium 3.9 Chloride 110 H Carbon Dioxide 25 Anion Gap 11 BUN 13 Creatinine 1.0 Est GFR ( Amer) > 60 Est GFR (Non-Af Amer) 55 POC Glucose (mg/dL) 103 Random Glucose 195 H Calcium 11.6 H Iron TIBC % Saturation Ferritin Total Bilirubin 0.1 L AST 40 H D ALT 38 Alkaline Phosphatase 97 Total Protein 7.0 Albumin 2.7 L Globulin 4.3 H Albumin/Globulin Ratio 0.6 L Vitamin B12 Folate PTH Intact Whole Molec Hepatitis C Antibody HIV 1&2 Antibody Screen 02/25/17 02/25/17 02/25/17 05:50 10:35 14:05 WBC RBC Hgb Hct MCV MCH MCHC RDW Plt Count PT 16.0 H INR 1.4 H APTT 34.6 Sodium Potassium Chloride Carbon Dioxide Anion Gap BUN Creatinine Est GFR ( Amer) Est GFR (Non-Af Amer) POC Glucose (mg/dL) 172 H 241 H Random Glucose Calcium Iron TIBC % Saturation Ferritin Total Bilirubin AST ALT Alkaline Phosphatase Total Protein Albumin Globulin Albumin/Globulin Ratio Vitamin B12 Folate PTH Intact Whole Molec Hepatitis C Antibody HIV 1&2 Antibody Screen Assessment/Plan - Assessment and Plan (Free Text) Assessment: 66 yo female w/ large left upper lobe mass Plan: CT guided biopsy with sedation Plan biopsy Thursday NPO after midnight night Call IR with any questions
--- NOTE | 2017-02-25 16:50 | CON ---
DATE: ENDOCRINOLOGY CONSULTATION LOCATION: Room 406, bed 2. HISTORY OF PRESENT ILLNESS: This is a 66-year-old female with known history of type 2 insulin-requiring diabetes, presenting here with symptomatic hypoglycemia related to omission of her meals on the day of admission with supervening symptomatic hypoglycemia and a glucose level of 31 mg/dL as noted. She is actually presenting here with worsening shortness of breath initially on exertion and then at rest with paroxysmal nocturnal dyspnea and increasing bouts of generalized body weakness, lethargy, and progressive weight loss. PAST MEDICAL HISTORY: As mentioned above, history of type 2 insulin-requiring diabetes, previously on a combination of Lantus, switched over to Toujeo given as 30 units subcu at bedtime daily with Amaryl at 4 mg b.i.d. before meals and Janumet at 50/500 mg b.i.d. before meals as given. History of hypertension and dyslipidemia, history of primary hyperparathyroidism and generalized osteoporosis and has been using Fosamax at 70 mg once a week as noted. History of hypertension and dyslipidemia, currently on Pravachol at 20 mg at bedtime. She also has known history of chronic obstructive lung disease related to nicotine dependence and was actually seen about 6 months ago at the [facility] where they found a lung mass on the chest x-ray for which the patient refused any further workup and management at that time. She also refused any further imaging procedures as recommended by the medical staff. FAMILY HISTORY: Positive for hypertension and diabetes. SOCIAL HISTORY: The patient has a supportive family. Admits to nicotine dependence and consumes half a pack a day of cigarettes for over 20 years at this time. Also, prior history of chronic alcoholism but quit heavy liquor intake over 10 years ago as noted. No other known substance use. PAST SURGICAL HISTORY: History of cholecystectomy for underlying cholelithiasis. She also got previous left ankle fracture with subsequent open reduction and internal fixation procedure undertaken. REVIEW OF SYSTEMS: As mentioned above. Admits to generalized body weakness with easy fatigability and tiredness and suboptimal energy level. Also, admits to increasing bouts of hypersomnolence and lethargy with easy fatigability and tiredness, especially on exertion. Also, admits to episodic bouts of dizziness and lightheadedness, worse on the day of admission. No chest pains or palpitations, but admits to progressive shortness of breath, initially on exertion and then at rest with paroxysmal nocturnal dyspnea. Also, admits to nausea, dyspepsia with suboptimal oral intake, worse in the last 3 weeks or so prior to admission with upper abdominal pains and habitual constipation. PHYSICAL EXAMINATION: GENERAL: This is an asthenic female, in no apparent distress. VITAL SIGNS: Blood pressure of 140/80, pulse of 70 beats per minute and regular, temperature 98, respirations 20, height is 5 feet, weight is 75 pounds. HEENT: Head normocephalic. Eyes anicteric with pink conjunctivae. Funduscopy not possible at this time. Ears, nose, and throat otherwise normal. NECK: Supple. Thyroid gland is normal in size. No carotid bruits or any cervical adenopathy. CARDIOPULMONARY: Some adynamic precordium. S1, S2 is rapid and regular. LUNGS: Show scattered rhonchi. ABDOMEN: Flat, soft with positive bowel sounds. EXTREMITIES: No peripheral edema. Pulses are +2 bilaterally. LABORATORY DATA: The chest x-ray showed a left upper lobe mass measuring 6.9 x 6.5 cm which has increased in dimensions and size since the prior exam. The D-dimer is 744. The initial calcium level is 13.6 and glucose level of 52 with albumin of 3.3 and a corrected calcium of 14.3 mg/dL. Her hemoglobin is 9.8 with a hematocrit of 30. ASSESSMENT: This is a 66-year-old female with symptomatic hypoglycemia related to a suboptimal and variable oral intake and meal omission despite the intake of her oral hypoglycemic therapy and insulin therapy at bedtime with expected supervening symptomatic hypoglycemia and associated neuroglycopenic and hyperadrenergic manifestations of same. She also has a significant left upper lobe lung mass with the significant history of nicotine dependence with underlying chronic obstructive lung disease, the very high possibility of a primary pulmonary malignancy has to be excluded at this time. Moreover, there is progressive weight loss and hypoalbuminemia related to a suboptimal and variable oral intake at this time which will all contribute to the progressive weight loss thereof. PLAN OF MANAGEMENT: We will discontinue all the basal insulin as given on the outpatient because of the variability and suboptimal meal portions at this time. We will continue the low-dose algorithm using regular insulin as ordered. We will also continue the Januvia given as 100 mg once daily for now and determine the need for the resumption of any other oral hypoglycemic therapy given in combination and/or a basal and premixed insulin regimen as indicated. Hemoglobin A1c will be done to compare with prior glycemic control and baseline thyroid function studies will be ordered. We will also pursue a pulmonary evaluation and workup for a possible malignancy. Moreover, we will also do a plasma ACTH and cortisol level and also a parathyroid hormone intact level and also a PTH-related peptide to confirm and/or indicate the presence of underlying parathyroid-related disorders versus humoral hypercalcemia of malignancy as noted thereof. We will continue the IV hydration as given and obtain serial chemistries and supplement accordingly needed. We will follow. Sayda Conti MD
[2017-02-25] MEDS: Pravastatin Sodium 20 MG TAB PO SCH (21:41)
[2017-02-26 06:13] LABS: HEMOGLOBIN 8.7 g/dL (12.0-16.0); MEAN CELL VOLUME 73.1 fl (81.0-99.0); MEAN CORPUSCULAR HEMOGLOBIN 22.6 pg (27.0-31.0); MEAN CORPUSCULAR HGB CONC 30.8 g/dL (33.0-37.0); RBC 3.87 Mil/uL (3.80-5.20); RED CELL DISTRIBUTION WIDTH 18.9 % (11.5-14.5); WHITE BLOOD COUNT 9.1 K/uL (4.8-10.8)
[2017-02-26 06:32] LABS: ALB/GLOB RATIO 0.6 (1.0-2.1); ALBUMIN 2.7 g/dL (3.5-5.0); ALT/SGPT 38 U/L (9-52); AST/SGOT 36 U/L (14-36); BLOOD UREA NITROGEN 8 mg/dl (7-17); CALCIUM 10.5 mg/dL (8.4-10.2); GFR AFRICAN-AMERICAN > 60; GFR NON-AFRICAN AMERICAN > 60; HDL CHOLESTEROL 18 MG/DL (30-70); MAGNESIUM 1.6 MG/DL (1.6-2.3)
[2017-02-26 06:33] LABS: LDL CHOLESTEROL 39 mg/dL (0-129)
[2017-02-26 06:39] LABS: T4 7.24 ug/dl (5.5-11.0)
[2017-02-26] MEDS ORDERED: Potassium Chloride 20 mEq ER Tab PO ONE (07:12)
[2017-02-26] MEDS: Sodium Chloride 0.9% 1,000 ML IV SCH (07:30)
--- NOTE | 2017-02-26 09:30 | CP.PCM.PN ---
Subjective - Date & Time of Evaluation Date of Evaluation: 02/26/17 Time of Evaluation: 09:26 - Subjective Subjective: Family Medicine 66 year old female PMHx IDDM, HLD, osteoporosis, hx of lung mass seen and evaluated at bedside this AM. No acute events overnight. SOB continues to improve. No longer experiencing lower extremity weakness. Tolerating PO diet; ate this morning. Able to void freely. Denies cough, chest pain, hemoptysis, palpitations, abd pain, nausea, vomiting, fever, diarrhea, chills. Objective - Vital Signs/Intake and Output Vital Signs (last 24 hours): Temp Pulse Resp BP Pulse Ox 97.9 F 84 20 111/68 97 02/26/17 08:42 02/26/17 08:42 02/26/17 08:42 02/26/17 08:42 02/26/17 08:42 - Medications Medications: Current Medications Acetaminophen (Tylenol 325mg Tab) 650 mg PO Q6 PRN PRN Reason: Pain, Mild (1-3) Albuterol (Ventolin Hfa 90 Mcg/Actuation (8 G)) 2 puff INH RQ6 PRN PRN Reason: Shortness of Breath Alendronate Sodium (Fosamax) 70 mg PO QD7 [facility] Last Admin: 02/25/17 06:44 Dose: 70 mg Aspirin (Ecotrin) 81 mg PO DAILY [facility] Last Admin: 02/25/17 09:18 Dose: 81 mg Dextrose (Dextrose 50% Inj) 0 ml IV STAT PRN; Protocol PRN Reason: Hypoglycemia Protocol Dextrose (Glutose 15) 0 gm PO ONCE PRN; Protocol PRN Reason: Hypoglycemia Protocol Docusate Sodium (Colace) 100 mg PO BID [facility] Last Admin: 02/25/17 17:12 Dose: 100 mg Enoxaparin Sodium (Lovenox) 40 mg SC DAILY [facility] PRN Reason: Protocol Last Admin: 02/25/17 09:18 Dose: 40 mg Ferrous Sulfate (Feosol) 325 mg PO TID [facility] Last Admin: 02/25/17 17:09 Dose: 325 mg Glipizide (Glucotrol) 10 mg PO BIDAC [facility] Glucagon (Glucagen Diagnostic Kit) 0 mg IM STAT PRN; Protocol PRN Reason: Hypoglycemia Protocol Sodium Chloride (Sodium Chloride 0.9%) 1,000 mls @ 100 mls/hr IV .Q10H [facility] Last Admin: 02/25/17 11:00 Dose: 100 mls/hr Insulin Human Regular (Humulin R) 0 units SC ACHS [facility] PRN Reason: Protocol Last Admin: 02/25/17 21:42 Dose: Not Given Nicotine (Nicoderm Cq) 1 patch TD DAILY [facility] Last Admin: 02/25/17 09:17 Dose: 1 patch Pravastatin Sodium (Pravachol) 20 mg PO HS [facility] Last Admin: 02/25/17 21:41 Dose: 20 mg Sitagliptin Phosphate (Januvia) 100 mg PO DAILY [facility] Last Admin: 02/25/17 09:17 Dose: 100 mg - Labs Labs: 02/26/17 05:00 02/26/17 05:00 PT 16.0 Seconds (9.8-13.1) H 02/25/17 14:05 INR 1.4 (0.9-1.2) H 02/25/17 14:05 APTT 34.6 Seconds (25.6-37.1) 02/25/17 14:05 - Constitutional Appears: Well, Cachectic - Head Exam Head Exam: ATRAUMATIC, NORMAL INSPECTION, NORMOCEPHALIC - Eye Exam Eye Exam: EOMI, Normal appearance Pupil Exam: NORMAL ACCOMODATION, PERRL - ENT Exam ENT Exam: Mucous Membranes Moist, Normal Exam - Neck Exam Neck Exam: Full ROM, Normal Inspection. absent: Tenderness - Respiratory Exam Respiratory Exam: Decreased Breath Sounds, Rales (crepitus lower lobes b/l). absent: Chest Wall Tenderness - Cardiovascular Exam Cardiovascular Exam: RRR, +S1, +S2 - GI/Abdominal Exam GI & Abdominal Exam: Soft, Normal Bowel Sounds. absent: Tenderness - Extremities Exam Extremities Exam: Full ROM, Normal Capillary Refill, Pedal Edema. absent: Calf Tenderness, Tenderness Additional comments: +1 pitting pedal edema b/l, improving - Back Exam Back Exam: absent: CVA tenderness (L), CVA tenderness (R), tenderness - Neurological Exam Neurological Exam: Alert, Awake, Oriented x3 - Psychiatric Exam Psychiatric exam: Normal Affect, Normal Mood - Skin Skin Exam: Dry, Intact, Normal Color, Warm Assessment and Plan (1) Dyspnea Status: Acute (2) Hypoglycemia Status: Acute (3) Hypercalcemia Status: Acute (4) Lung mass Status: Acute (5) Type 2 diabetes mellitus Status: Acute (6) Hyperlipidemia Status: Acute (7) Osteoporosis Status: Acute (8) Underweight Status: Acute (9) DVT prophylaxis Status: Acute - Assessment and Plan (Free Text) Assessment: 66 year old female PMHx IDDM, HLD, osteoporosis, hx of lung mass admitted for dyspnea, hypoglycemia, and hypercalcemia. (1) Lung mass D-dimer increased @ 744 CXR: Left upper lobe mass significantly increased in size since prior examination now measuring 6.9 x 6.5 cm. COPD. left lower lobe bronchiectasis. Previous CXR (08/15/16): Left upper lobe mass/infiltrate measures approximately 4.[address] C/A/P w/contrast: -8.2 x 7.4 x 8.9 cm L upper lobe mass encasing and narrowing L upper lobe pulmonary aa. and bronchi, infiltrating the mediastinum consistent with malignancy -7mm R upper lobe pulmonary nodule suspicious for metastasis -1 x 1.5 x 2 cm L lower lobe nodule pleural-based nodule suspicious for metastasis -Mild hepatomegaly, unchanged calcifications in liver -Chronic calcific pancreatitis w/pancreatic atrophy -Prominent gastric wall under distention vs. true thickening -Proximal small bowel dilation with wall and fold prominence suggesting enteritis Brain MRI w/contrast negative for intracranial metastasis IR consulted, plan for biopsy tomorrow, 02/27 -NPO @ co HemeOn consulted, mass staging suggests metastasis to mediastinal lymph nodes and contralateral lung Pulmonology consulted, f/u recs f/u Aspergillus serum Ab & antigen f/u QuantiFERON-TB Gold f/u stool occult blood r/o colon cancer or colon mets (2) Hypercalcemia Improving - 10.5 today 02/27/17 Albumin 2.7 Decreased PTH - 3 TSH, T4 WNL Endocrine consulted, recs appreciated Consider calcitonin if Ca increases above 14 f/u SPEP/UPEP r/o multiple myeloma f/u ACTH, cortisol Continue IVF (3) Hypoglycemia Resolved (4) Dyspnea likely 2/2 COPD CTA ordered r/o PE: No aneurysm/dissection/PE; emphysema and fibrosis Improved with albuterol Plan for walk test tomorrow (5) Type 2 diabetes mellitus Home meds: glimepiride, insulin glargine Endocrine consulted, recs appreciated -Continue Januvia 100mg QD Last A1c (11/25/16) 7.5 -f/u A1c Insulin sliding scale Heart Healthy Diet Accuchecks ACHS (6) Hypokalemia K = 3.2 today replete with KCl PO prn (7) Hyperlipidemia Hold pravastatin 20mg PO (8) Osteoporosis Hold Alendronate No calcium/vitamin D indicated as levels are not deficient (9) Underweight Heart healthy diet Glucerna supplements Nutrition consult (10) DVT prophylaxis Lovenox 40mg SC QD -held for IR intervention tomorrow
[2017-02-26] MEDS: ALENDRONATE 70 MG TAB PO SCH (10:20)
[2017-02-26] MEDS: Insulin Regular 100 units/ml SC SCH ×4 (10:21→22:36)
--- NOTE | 2017-02-26 16:21 | CP.PCM.PN ---
Subjective - Date & Time of Evaluation Date of Evaluation: 02/26/17 Time of Evaluation: 12:00 - Subjective Subjective: Feeling better today. Objective - Vital Signs/Intake and Output Vital Signs (last 24 hours): Temp Pulse Resp BP Pulse Ox 97.7 F 85 20 102/58 L 98 02/26/17 12:31 02/26/17 12:31 02/26/17 12:31 02/26/17 12:31 02/26/17 12:31 - Medications Medications: Current Medications Acetaminophen (Tylenol 325mg Tab) 650 mg PO Q6 PRN PRN Reason: Pain, Mild (1-3) Albuterol (Ventolin Hfa 90 Mcg/Actuation (8 G)) 2 puff INH RQ6 PRN PRN Reason: Shortness of Breath Aspirin (Ecotrin) 81 mg PO DAILY [facility] Last Admin: 02/25/17 09:18 Dose: 81 mg Dextrose (Dextrose 50% Inj) 0 ml IV STAT PRN; Protocol PRN Reason: Hypoglycemia Protocol Dextrose (Glutose 15) 0 gm PO ONCE PRN; Protocol PRN Reason: Hypoglycemia Protocol Docusate Sodium (Colace) 100 mg PO BID [facility] Last Admin: 02/26/17 10:19 Dose: 100 mg Enoxaparin Sodium (Lovenox) 40 mg SC DAILY [facility] PRN Reason: Protocol Last Admin: 02/25/17 09:18 Dose: 40 mg Ferrous Sulfate (Feosol) 325 mg PO TID [facility] Last Admin: 02/26/17 12:22 Dose: 325 mg Glucagon (Glucagen Diagnostic Kit) 0 mg IM STAT PRN; Protocol PRN Reason: Hypoglycemia Protocol Sodium Chloride (Sodium Chloride 0.9%) 1,000 mls @ 100 mls/hr IV .Q10H [facility] Last Admin: 02/26/17 07:30 Dose: 100 mls/hr Insulin Human Regular (Humulin R) 0 units SC ACHS [facility] PRN Reason: Protocol Last Admin: 02/26/17 12:22 Dose: 1 units Nicotine (Nicoderm Cq) 1 patch TD DAILY [facility] Last Admin: 02/26/17 10:22 Dose: 1 patch Sitagliptin Phosphate (Januvia) 100 mg PO DAILY [facility] Last Admin: 02/26/17 10:22 Dose: 100 mg - Labs Labs: 02/26/17 05:00 02/26/17 05:00 PT 16.0 Seconds (9.8-13.1) H 02/25/17 14:05 INR 1.4 (0.9-1.2) H 02/25/17 14:05 APTT 34.6 Seconds (25.6-37.1) 02/25/17 14:05 - Head Exam Head Exam: ATRAUMATIC - Eye Exam Eye Exam: Normal appearance - ENT Exam ENT Exam: Mucous Membranes Dry - Respiratory Exam Respiratory Exam: NORMAL BREATHING PATTERN - Cardiovascular Exam Cardiovascular Exam: +S1, +S2 - GI/Abdominal Exam GI & Abdominal Exam: Normal Bowel Sounds Assessment and Plan (1) Hypercalcemia Assessment & Plan: improving s/p bisphosphonate Status: Acute (2) Lung mass Assessment & Plan: for biopsy Status: Acute (3) Anemia Status: Acute
[2017-02-26 17:23] LABS: HEPATITIS B SURFACE AG NEGATIVE (NEGATIVE)
[2017-02-26 17:30] LABS: HEPATITIS A IGM NEGATIVE (NEGATIVE); HEPATITIS B CORE AB Negative (NEGATIVE)
[2017-02-26 18:55] LABS: SQUAMOUS EPITHIAL 5 /hpf (0-5); URINE BACTERIA RARE (<OCC); URINE BILIRUBIN NEGATIVE (NEGATIVE); URINE BLOOD NEGATIVE (NEGATIVE); URINE CLARITY SLIGHTY-CLOUDY (Clear); URINE COLOR YELLOW (YELLOW); URINE GLUCOSE (UA) >=500 mg/dL (Normal); URINE LEUKOCYTE ESTERASE LARGE Leu/uL (Negative); URINE NITRATE NEGATIVE (NEGATIVE); URINE PROTEIN NEGATIVE (NEGATIVE)
--- NOTE | 2017-02-26 21:16 | CP.PCM.CON ---
History of Present Illness - History of Present Illness History of Present Illness: Called to consult on a patient with a Hx of tobacco abuse, and sub-clinical COPD , admitted for SOB with minimal exertion. CT done showed a large GEETA mass, c/w a malignant tumor. NKDA 30 pack year smoker; quit prior to being admitted to hospital. Neg ETOH/Drugs. VSS Afebrile Head: neg adeno, pos jesus Heart RRR, ns1s2, neg M Lungs: bronchial BS on Left side. No c,c,e Neuro GNF Labs see below. a/p 1) Pulmonary Mass: for Bx by IR in am. Will probably need Oncology consult since mass is highly c/w a malignancy. 2) COPD: Cont supplemental O2 for O2 SAT > 90%. Cont LILY Q 4 hours prn via nebs. 3) PUD and DVT prophylaxis. 4) PFT's to assess reserve, in the event patient is operable. Will have to determine current and Post op FEV1. 5) Please call Pulmonary again should you need further advise. signing out of case. Past Patient History - Infectious Disease Hx of Infectious Diseases: None - Past Medical History & Family History Past Medical History?: Yes - Past Social History Smoking Status: Current Some Days Smoker - CARDIAC Hx Hypertension: Yes (denies) - PULMONARY Hx Respiratory Disorders: No - NEUROLOGICAL Hx Neurological Disorder: No - ENDOCRINE/METABOLIC Hx Endocrine Disorders: Yes (DM) - HEMATOLOGICAL/ONCOLOGICAL Hx Blood Disorders: No - INTEGUMENTARY Hx Dermatological Problems: No - MUSCULOSKELETAL/RHEUMATOLOGICAL Hx Falls: No - GASTROINTESTINAL Hx Gastrointestinal Disorders: No - GENITOURINARY/GYNECOLOGICAL Hx Genitourinary Disorders: No - PSYCHIATRIC Hx Substance Use: No - SURGICAL HISTORY Hx Surgeries: Yes Other/Comment: left leg surgery - ANESTHESIA Hx Anesthesia: Yes Hx Anesthesia Reactions: No Hx Malignant Hyperthermia: No Has any member of the family had a problem w/ anesthesia?: No Meds Allergies/Adverse Reactions: Allergies Allergy/AdvReac Type Severity Reaction Status Date / Time No Known Allergies Allergy Verified 02/10/17 11:16 - Medications Medications: Current Medications Acetaminophen (Tylenol 325mg Tab) 650 mg PO Q6 PRN PRN Reason: Pain, Mild (1-3) Albuterol (Ventolin Hfa 90 Mcg/Actuation (8 G)) 2 puff INH RQ6 PRN PRN Reason: Shortness of Breath Aspirin (Ecotrin) 81 mg PO DAILY [facility] Last Admin: 02/25/17 09:18 Dose: 81 mg Dextrose (Dextrose 50% Inj) 0 ml IV STAT PRN; Protocol PRN Reason: Hypoglycemia Protocol Dextrose (Glutose 15) 0 gm PO ONCE PRN; Protocol PRN Reason: Hypoglycemia Protocol Docusate Sodium (Colace) 100 mg PO BID [facility] Last Admin: 02/26/17 16:33 Dose: 100 mg Enoxaparin Sodium (Lovenox) 40 mg SC DAILY [facility] PRN Reason: Protocol Last Admin: 02/25/17 09:18 Dose: 40 mg Ferrous Sulfate (Feosol) 325 mg PO TID [facility] Last Admin: 02/26/17 16:33 Dose: 325 mg Glucagon (Glucagen Diagnostic Kit) 0 mg IM STAT PRN; Protocol PRN Reason: Hypoglycemia Protocol Sodium Chloride (Sodium Chloride 0.9%) 1,000 mls @ 100 mls/hr IV .Q10H [facility] Last Admin: 02/26/17 07:30 Dose: 100 mls/hr Insulin Human Regular (Humulin R) 0 units SC ACHS [facility] PRN Reason: Protocol Last Admin: 02/26/17 16:37 Dose: 3 units Nicotine (Nicoderm Cq) 1 patch TD DAILY [facility] Last Admin: 02/26/17 10:22 Dose: 1 patch Sitagliptin Phosphate (Januvia) 100 mg PO DAILY [facility] Last Admin: 02/26/17 10:22 Dose: 100 mg Results - Vital Signs Recent Vital Signs: Last Vital Signs Temp 98.9 F 02/26/17 18:30 Pulse 100 H 02/26/17 18:30 Resp 18 02/26/17 18:30 BP 120/71 02/26/17 18:30 Pulse Ox 98 02/26/17 18:30 - Labs Result Diagrams: 02/26/17 05:00 02/26/17 05:00 Labs: Laboratory Results - last 24 hr 02/24/17 02/24/17 02/25/17 18:37 18:37 21:37 WBC RBC Hgb Hct MCV MCH MCHC RDW Plt Count Sodium Potassium Chloride Carbon Dioxide Anion Gap BUN Creatinine Est GFR ( Amer) Est GFR (Non-Af Amer) POC Glucose (mg/dL) 228 H Random Glucose Hemoglobin A1c Calcium Phosphorus Magnesium Total Bilirubin AST ALT Alkaline Phosphatase Total Protein Total Protein (PEP) 6.9 Albumin Globulin Albumin/Globulin Ratio Triglycerides Cholesterol LDL Cholesterol Direct HDL Cholesterol Carcinoembryonic Ag Thyroxine (T4) TSH 3rd Generation Cortisol AM Sample Urine Color Urine Clarity Urine pH Ur Specific Pray Urine Protein Urine Glucose (UA) Urine Ketones Urine Blood Urine Nitrate Urine Bilirubin Urine Urobilinogen Ur Leukocyte Esterase Urine RBC (Auto) Urine Microscopic WBC Ur Squamous Epith Cells Urine Bacteria Hepatitis A IgM Ab Hep Bs Antigen Hep B Core IgM Ab Hepatitis C Antibody HIV-1 Antibody TEST NOT PERFORMED HIV-2 Antibody TEST NOT PERFORMED HIV 1&2 Ag/Ab, 4th Gen Nonreactive 02/26/17 02/26/17 02/26/17 05:00 05:00 05:00 WBC RBC Hgb Hct MCV MCH MCHC RDW Plt Count Sodium 142 Potassium 3.2 L Chloride 110 H Carbon Dioxide 26 Anion Gap 9 L BUN 8 Creatinine 0.7 Est GFR ( Amer) > 60 Est GFR (Non-Af Amer) > 60 POC Glucose (mg/dL) Random Glucose 77 Hemoglobin A1c 7.0 H Calcium 10.5 H Phosphorus 1.9 L Magnesium 1.6 Total Bilirubin < 0.1 L AST 36 ALT 38 Alkaline Phosphatase 101 Total Protein 6.9 Total Protein (PEP) Albumin 2.7 L Globulin 4.2 H Albumin/Globulin Ratio 0.6 L Triglycerides 113 Cholesterol 83 LDL Cholesterol Direct 39 HDL Cholesterol 18 L Carcinoembryonic Ag 2.9 Thyroxine (T4) 7.24 TSH 3rd Generation 3.55 Cortisol AM Sample 17.6 Urine Color Urine Clarity Urine pH Ur Specific Pray Urine Protein Urine Glucose (UA) Urine Ketones Urine Blood Urine Nitrate Urine Bilirubin Urine Urobilinogen Ur Leukocyte Esterase Urine RBC (Auto) Urine Microscopic WBC Ur Squamous Epith Cells Urine Bacteria Hepatitis A IgM Ab Hep Bs Antigen Hep B Core IgM Ab Hepatitis C Antibody HIV-1 Antibody HIV-2 Antibody HIV 1&2 Ag/Ab, 4th Gen 02/26/17 02/26/17 02/26/17 05:00 05:57 11:57 WBC 9.1 RBC 3.87 Hgb 8.7 L Hct 28.3 L MCV 73.1 L MCH 22.6 L MCHC 30.8 L RDW 18.9 H Plt Count 393 Sodium Potassium Chloride Carbon Dioxide Anion Gap BUN Creatinine Est GFR ( Amer) Est GFR (Non-Af Amer) POC Glucose (mg/dL) 73 155 H Random Glucose Hemoglobin A1c Calcium Phosphorus Magnesium Total Bilirubin AST ALT Alkaline Phosphatase Total Protein Total Protein (PEP) Albumin Globulin Albumin/Globulin Ratio Triglycerides Cholesterol LDL Cholesterol Direct HDL Cholesterol Carcinoembryonic Ag Thyroxine (T4) TSH 3rd Generation Cortisol AM Sample Urine Color Urine Clarity Urine pH Ur Specific Pray Urine Protein Urine Glucose (UA) Urine Ketones Urine Blood Urine Nitrate Urine Bilirubin Urine Urobilinogen Ur Leukocyte Esterase Urine RBC (Auto) Urine Microscopic WBC Ur Squamous Epith Cells Urine Bacteria Hepatitis A IgM Ab Hep Bs Antigen Hep B Core IgM Ab Hepatitis C Antibody HIV-1 Antibody HIV-2 Antibody HIV 1&2 Ag/Ab, 4th Gen 02/26/17 02/26/17 12:56 17:50 WBC RBC Hgb Hct MCV MCH MCHC RDW Plt Count Sodium Potassium Chloride Carbon Dioxide Anion Gap BUN Creatinine Est GFR ( Amer) Est GFR (Non-Af Amer) POC Glucose (mg/dL) Random Glucose Hemoglobin A1c Calcium Phosphorus Magnesium Total Bilirubin AST ALT Alkaline Phosphatase Total Protein Total Protein (PEP) Albumin Globulin Albumin/Globulin Ratio Triglycerides Cholesterol LDL Cholesterol Direct HDL Cholesterol Carcinoembryonic Ag Thyroxine (T4) TSH 3rd Generation Cortisol AM Sample Urine Color Yellow Urine Clarity Slighty-cloudy Urine pH 7.0 Ur Specific Pray 1.014 Urine Protein Negative Urine Glucose (UA) >=500 Urine Ketones Negative Urine Blood Negative Urine Nitrate Negative Urine Bilirubin Negative Urine Urobilinogen 2.0 H Ur Leukocyte Esterase Large Urine RBC (Auto) 2 Urine Microscopic WBC 40 H Ur Squamous Epith Cells 5 Urine Bacteria Rare Hepatitis A IgM Ab Negative Hep Bs Antigen Negative Hep B Core IgM Ab Negative Hepatitis C Antibody Reactive HIV-1 Antibody HIV-2 Antibody HIV 1&2 Ag/Ab, 4th Gen
[2017-02-27 06:21] LABS: HEMOGLOBIN 8.5 g/dL (12.0-16.0); MEAN CELL VOLUME 72.7 fl (81.0-99.0); MEAN CORPUSCULAR HEMOGLOBIN 22.8 pg (27.0-31.0); MEAN CORPUSCULAR HGB CONC 31.3 g/dL (33.0-37.0); RBC 3.75 Mil/uL (3.80-5.20); RED CELL DISTRIBUTION WIDTH 19.1 % (11.5-14.5); WHITE BLOOD COUNT 10.5 K/uL (4.8-10.8)
[2017-02-27 07:13] LABS: ALB/GLOB RATIO 0.6 (1.0-2.1); ALBUMIN 2.7 g/dL (3.5-5.0); ALT/SGPT 31 U/L (9-52); AST/SGOT 31 U/L (14-36); BLOOD UREA NITROGEN 9 mg/dl (7-17); CALCIUM 9.8 mg/dL (8.4-10.2); GFR AFRICAN-AMERICAN > 60; GFR NON-AFRICAN AMERICAN > 60
--- NOTE | 2017-02-27 07:18 | PN ---
DATE: 12/27/17 ENDOCRINOLOGY FOLLOWUP LOCATION: Room 406. SUBJECTIVE: This is a 66-year-old female with recent uncontrolled type insulin-requiring diabetes, presenting here with symptomatic hypoglycemia and supervening marked hypercalcemic accelerations as noted thereof. She has received vigorous IV hydration and intensive insulin therapy as given. She has only been on the low dose correction scale as ordered. Her oral intake is extremely poor and variable and suboptimal . Her glucose levels overnight with a glucose value of 73 this morning and repeat chemistries showed BUN 8, sodium 142, potassium 3.2, chloride 110, CO2 of 26, glucose 70, and creatinine 0.7. Her repeat calcium level is 10.5 with an albumin level of dL. So, at this time, we will continue the vigorous IV hydration as given and obtain serial chemistries and supplement accordingly as needed. She received vigorous IV hydration at dose of zoledronic acid given as 5 mg IV piggyback as 1 bolus dose in the emergency room with Aredia given as 90 mg bolus infusion also given in the emergency room as noted. thyroid hormone level was . The most possible etiology would be the so-called hypercalcemia of malignancy concomitant left upper lobe lung mass as of the chest today as noted. glipizide given as 10 mg b.i.d. as ordered. We will continue the Januvia given as 100 mg as ordered. We will also continue the low-dose correction scale using Humalog insulin as ordered. We will follow and advise accordingly. Sayda Conti MD
[2017-02-27] MEDS: Insulin Regular 100 units/ml SC SCH ×5 (07:33→21:50)
[2017-02-27 08:19] LABS: MCH 23.2 pg (27.0-33.0); MCV 74.8 fL (80.0-100.0)
--- NOTE | 2017-02-27 09:36 | CP.PCM.PN ---
Subjective - Date & Time of Evaluation Date of Evaluation: 02/27/17 Time of Evaluation: 09:33 - Subjective Subjective: Family Medicine 66 year old female PMHx IDDM, HLD, osteoporosis, hx of lung mass seen and evaluated at bedside. No acute events overnight. No complaints of SOB today. Patient aware she is scheduled for biopsy with IR today. NPO confirmed. 2 BM overnight. Denies cough, chest pain, hemoptysis, palptations, abd pain, nausea, vomiting, fever, diarrhea, chills, unsteady gait. Objective - Vital Signs/Intake and Output Vital Signs (last 24 hours): Temp Pulse Resp BP Pulse Ox 97.8 F 87 18 96/59 L 96 02/27/17 07:54 02/27/17 07:54 02/27/17 07:54 02/27/17 07:54 02/27/17 07:54 - Medications Medications: Current Medications Acetaminophen (Tylenol 325mg Tab) 650 mg PO Q6 PRN PRN Reason: Pain, Mild (1-3) Albuterol (Ventolin Hfa 90 Mcg/Actuation (8 G)) 2 puff INH RQ6 PRN PRN Reason: Shortness of Breath Aspirin (Ecotrin) 81 mg PO DAILY [facility] Last Admin: 02/25/17 09:18 Dose: 81 mg Dextrose (Dextrose 50% Inj) 0 ml IV STAT PRN; Protocol PRN Reason: Hypoglycemia Protocol Dextrose (Glutose 15) 0 gm PO ONCE PRN; Protocol PRN Reason: Hypoglycemia Protocol Docusate Sodium (Colace) 100 mg PO BID [facility] Last Admin: 02/26/17 16:33 Dose: 100 mg Enoxaparin Sodium (Lovenox) 40 mg SC DAILY [facility] PRN Reason: Protocol Last Admin: 02/25/17 09:18 Dose: 40 mg Ferrous Sulfate (Feosol) 325 mg PO TID [facility] Last Admin: 02/26/17 16:33 Dose: 325 mg Glucagon (Glucagen Diagnostic Kit) 0 mg IM STAT PRN; Protocol PRN Reason: Hypoglycemia Protocol Potassium Chloride/Sodium Chloride (Potassium Chl 20 Meq In Ns) 1,000 mls @ 100 mls/hr IV .Q10H [facility] Stop: 02/28/17 07:53 Insulin Human Regular (Humulin R) 0 units SC ACHS [facility] PRN Reason: Protocol Last Admin: 02/27/17 07:33 Dose: Not Given Nicotine (Nicoderm Cq) 1 patch TD DAILY [facility] Last Admin: 02/26/17 10:22 Dose: 1 patch Sitagliptin Phosphate (Januvia) 100 mg PO DAILY [facility] Last Admin: 02/26/17 10:22 Dose: 100 mg - Labs Labs: 02/27/17 06:00 02/27/17 06:00 PT 16.0 Seconds (9.8-13.1) H 02/25/17 14:05 INR 1.4 (0.9-1.2) H 02/25/17 14:05 APTT 34.6 Seconds (25.6-37.1) 02/25/17 14:05 - Constitutional Appears: Well, Non-toxic, No Acute Distress - Head Exam Head Exam: ATRAUMATIC, NORMAL INSPECTION, NORMOCEPHALIC - Eye Exam Eye Exam: EOMI, Normal appearance Pupil Exam: NORMAL ACCOMODATION, PERRL - ENT Exam ENT Exam: Mucous Membranes Moist, Normal Exam - Neck Exam Neck Exam: Full ROM, Normal Inspection. absent: Tenderness - Respiratory Exam Respiratory Exam: Decreased Breath Sounds (crepitus lower lobes b/l), Rales. absent: Respiratory Distress - Cardiovascular Exam Cardiovascular Exam: RRR, +S1, +S2 - GI/Abdominal Exam GI & Abdominal Exam: Soft, Normal Bowel Sounds. absent: Tenderness - Extremities Exam Extremities Exam: Full ROM, Normal Inspection, Pedal Edema (+1 pitting, decreasing). absent: Calf Tenderness, Tenderness - Back Exam Back Exam: NORMAL INSPECTION. absent: tenderness - Neurological Exam Neurological Exam: Alert, Awake, Oriented x3 - Psychiatric Exam Psychiatric exam: Normal Affect, Normal Mood - Skin Skin Exam: Dry, Intact, Normal Color, Warm Assessment and Plan (1) Dyspnea Status: Acute (2) Hypoglycemia Status: Acute (3) Hypercalcemia Status: Acute (4) Lung mass Status: Acute (5) Type 2 diabetes mellitus Status: Chronic (6) Hyperlipidemia Status: Chronic (7) Osteoporosis Status: Chronic (8) Underweight Status: Acute (9) DVT prophylaxis Status: Acute - Assessment and Plan (Free Text) Assessment: 66 year old female PMHx IDDM, HLD, osteoporosis, hx of lung mass admitted for dyspnea, hypoglycemia, and hypercalcemia. (1) Lung mass D-dimer increased @ 744 CXR: Left upper lobe mass significantly increased in size since prior examination now measuring 6.9 x 6.5 cm. COPD. left lower lobe bronchiectasis. -Previous CXR (08/15/16): Left upper lobe mass/infiltrate measures approximately 4.[address] C/A/P w/contrast: -8.2 x 7.4 x 8.9 cm L upper lobe mass encasing and narrowing L upper lobe pulmonary aa. and bronchi, infiltrating the mediastinum consistent with malignancy -7mm R upper lobe pulmonary nodule suspicious for metastasis -1 x 1.5 x 2 cm L lower lobe nodule pleural-based nodule suspicious for metastasis Brain MRI w/contrast negative for intracranial metastasis IR consulted, plan for biopsy today; NPO -f/u pathology HemeOnc consulted, mass staging suggests metastasis to mediastinal lymph nodes and contralateral lung Pulmonology consulted, s/o at this time f/u Aspergillus serum Ab & antigen f/u QuantiFERON-TB Gold f/u stool occult blood r/o colon cancer or colon mets (2) Hypercalcemia Ca 9.8 Albumin 2.7 -Corrected calcium = 10.5 ->improving Decreased PTH - 3 Endocrine consulted, recs appreciated Consider calcitonin if Ca increases above 14 f/u SPEP/UPEP r/o multiple myeloma f/u ACTH, cortisol Continue IVF (3) Hypoglycemia Resolved (4) Dyspnea likely 2/2 COPD Resolving CTA ordered r/o PE: No aneurysm/dissection/PE; emphysema and fibrosis Improved with albuterol O2 nasal cannula prn for O2 sat < 92% RA Underwent walk test today: pre-walk SAO2 98% RA, during walk desat. to 87% RA -Rx home oxygen (5) Type 2 diabetes mellitus Home meds: glimepiride, insulin glargine Endocrine consulted, recs appreciated -Continue Januvia 100mg QD A1c = 7.0 -Last A1c (11/25/16) 7.5 Insulin sliding scale Heart Healthy Diet Accuchecks ACHS (6) Hypokalemia K improving, 3.4 replete with KCl PO prn (7) Anemia Ferrous Sulfate 325mg PO TID (8) Hyperlipidemia Hold pravastatin 20mg PO (9) Osteoporosis Hold Alendronate No calcium/vitamin D indicated as levels are not deficient (10) Underweight Heart healthy diet Glucerna supplements Nutrition consult (11) DVT prophylaxis Lovenox 40mg SC QD, held for IR intervention
[2017-02-27 09:45] LABS: CERULOPLASMIN 36 mg/dL (18-53)
[2017-02-27] MEDS ORDERED: Lidocaine 1% Inj (20ml) ONE (09:48)
[2017-02-27] MEDS ORDERED: Midazolam 2 MG/2 ML VIAL ONE (10:07)
[2017-02-27] MEDS: Sodium Chloride 0.9% 1,000 ML IV SCH (10:55)
[2017-02-27] MEDS: Potassium Chl 20 mEq in NS 1,000 ML IV SCH ×3 (11:00→18:25)
--- NOTE | 2017-02-27 11:01 | PCM.SURG1 ---
Surgeon's Initial Post Op Note - Surgeon's Notes Surgeon: Naman Campos MD Special Effects Specialist: None Type of Anesthesia: MAC Pre-Operative Diagnosis: GEETA Mass Operative Findings: large GEETA mass Post-Operative Diagnosis: same Operation Performed: CT guided GEETA mass biopsy Specimen/Specimens Removed: 20g core biopsy of GEETA mass x5 Estimated Blood Loss: EBL {In ML}: 0 Post-Op Condition: Good Date of Surgery/Procedure: 02/27/17 Time of Surgery/Procedure: 10:45
[2017-02-27 11:08] LABS: HEPATITIS C ANTIBODY Reactive (NEGATIVE)
[2017-02-27 11:25] LABS: INR 1.3 (0.9-1.2); PARTIAL THROMBOPLASTIN TIME 30.4 Seconds (25.6-37.1)
[2017-02-27 11:43] LABS: ALBUMIN (PEP) 2.1 g/dL (3.8-4.8); ALPHA-1-GLOBULIN (PEP) 0.5 g/dL (0.2-0.3)
--- NOTE | 2017-02-27 12:30 | US ---
PROCEDURE: CT-GUIDED LUNG MASS BIOPSY CLINICAL HISTORY: 66-year-old female with large left upper lobe lung mass suspicious for malignancy is referred to Interventional Radiology for percutaneous image-guided core needle biopsy. COMPARISON: CT scan of the chest, abdomen and pelvis dated 02/24/2017. PROCEDURE: 1. Focused CT of the left hemithorax. 2. CT-guided core needle biopsy of the left upper lobe mass. PRE-PROCEDURE FINDINGS: 1. Large lobulated left upper lobe mass. POST-PROCEDURE FINDINGS: 1. No evidence of post-procedural complication. INTERVENTIONAL RADIOLOGIST: Naman Campos M.D. (the attending was present for the entire procedure) ANESTHESIA: Provided by the attending anesthesiologist. Sedation was supervised by the anesthesiology attending with the presence of independent radiology nursing monitoring. Physiological data monitoring was performed throughout the entire procedure. The patient's blood pressure, EKG and pulse oximetry were recorded. The patient tolerated the procedure and sedation without untoward reactions. The intra-procedural sedation time was 20 minutes. MEDICATIONS: Lidocaine 1% for local subcutaneous analgesia. COMPLICATIONS: None. PROCEDURE DESCRIPTION AND FINDINGS: The risks, benefits, alternatives and possible complications of the procedure were fully discussed; all questions were answered and informed consent was obtained. The patient was brought into the interventional suite and a pre-procedure 'time-out' was performed. The patient was placed on the CT table in the supine position. The lesion was localized under CT-guidance and a hattie was made on the skin site overlying the lesion. The left upper chest was prepped and draped in the usual sterile fashion. Maximum sterile barrier precautions were maintained throughout the entire procedure. Preliminary focused CT images of the left hemithorax again demonstrate the large lobulated left upper lobe mass referred for biopsy. Following subcutaneous infiltration of lidocaine 1% for local analgesia, under CT-guidance, a 19-gauge trocar needle was advanced into the left upper lobe mass. The inner stylet was carefully removed. A 20-gauge biopsy device was coaxially loaded into the introducer needle and a total of 5 core needle biopsies were obtained. The biopsy device and trocar needle were removed. Adequate hemostasis was achieved utilizing manual compression. A sterile adhesive dressing was applied over the puncture site. Post-procedure imaging demonstrated no complications. The patient tolerated the procedure well without immediate post-procedure complications and was transferred to the interventional radiology recovery area in stable condition. IMPRESSION: Successful CT-guided core needle biopsy of the left upper lobe mass. A total of 5 samples were obtained.
--- NOTE | 2017-02-27 12:37 | RAD ---
HISTORY: s/p left upper lobe biopsy, eval for PTX COMPARISON: Images from CT guided biopsy procedure performed approximately 30 minutes prior FINDINGS: LUNGS: Large left upper lobe mass redemonstrated. Biapical and bibasilar fibrotic changes. PLEURA: No significant pleural effusion identified, no pneumothorax apparent. CARDIOVASCULAR: Cardiomediastinal silhouette unchanged. OSSEOUS STRUCTURES: Unchanged. VISUALIZED UPPER ABDOMEN: Normal. OTHER FINDINGS: None. IMPRESSION: No appreciable pneumothorax. No significant interval change.
[2017-02-27 20:05] LABS: TB ANTIGEN MINUS NIL 0.04 IU/mL
[2017-02-28 00:29] VITALS: PULSE 93
[2017-02-28] MEDS: Potassium Chl 20 mEq in NS 1,000 ML IV SCH ×2 (01:09→04:00)
[2017-02-28] MEDS: Insulin Regular 100 units/ml SC SCH (08:05)
[2017-02-28 08:24] VITALS: BP 110/66; RESP 20; TEMP 98.7; O2SAT 98
[2017-02-28 08:24] LABS: HEMOGLOBIN 8.6 g/dL (12.0-16.0); MEAN CELL VOLUME 73.8 fl (81.0-99.0); MEAN CORPUSCULAR HEMOGLOBIN 23.3 pg (27.0-31.0); MEAN CORPUSCULAR HGB CONC 31.6 g/dL (33.0-37.0); RBC 3.68 Mil/uL (3.80-5.20); WHITE BLOOD COUNT 9.8 K/uL (4.8-10.8)
[2017-02-28] MEDS: Sodium Chloride 0.9% 1,000 ML IV SCH (08:54)
--- NOTE | 2017-02-28 09:53 | RAD ---
PROCEDURE: CHEST RADIOGRAPH, 1 VIEW HISTORY: S/P CT guided lung biopsy COMPARISON: Chest radiograph dated 02/27/2017 FINDINGS: LUNGS: Large left upper lobe mass redemonstrated. Biapical and bibasilar fibrotic changes. PLEURA: No pneumothorax or pleural fluid seen. CARDIOVASCULAR: Cardiomediastinal silhouette unchanged OSSEOUS STRUCTURES: Unchanged VISUALIZED UPPER ABDOMEN: Normal. OTHER FINDINGS: None. IMPRESSION: No appreciable pneumothorax. No significant interval change.
[2017-02-28 11:03] LABS: HEMOGLOBIN A 97.1 Percent (>96.0); HEMOGLOBIN A2 1.9 Percent (1.8-3.5)
--- NOTE | 2017-02-28 11:26 | CP.PCM.DIS ---
Provider - Provider Date of Admission: 02/24/17 11:21 Attending physician: Mila Dougherty MD Time Spent in preparation of Discharge (in minutes): 30 Diagnosis - Discharge Diagnosis (1) Hypercalcemia Status: Acute (2) Hypoglycemia Status: Acute (3) Lung mass Status: Acute Hospital Course - Lab Results Lab Results: Most Recent Lab Values WBC 9.8 K/uL (4.8-10.8) 02/28/17 08:03 RBC 3.68 Mil/uL (3.80-5.20) L 02/28/17 08:03 Hgb 8.6 g/dL (12.0-16.0) L 02/28/17 08:03 Hct 27.1 % (34.0-47.0) L 02/28/17 08:03 MCV 73.8 fl (81.0-99.0) L 02/28/17 08:03 MCH 23.3 pg (27.0-31.0) L 02/28/17 08:03 MCHC 31.6 g/dL (33.0-37.0) L 02/28/17 08:03 RDW 19.0 % (11.5-14.5) H 02/28/17 08:03 Plt Count 407 K/uL (130-400) H 02/28/17 08:03 MPV 7.9 fl (7.2-11.7) 02/24/17 10:31 Neut % (Auto) 65.5 % (50.0-75.0) 02/24/17 10:31 Lymph % (Auto) 18.5 % (20.0-40.0) L 02/24/17 10:31 Bladen % (Auto) 12.7 % (0.0-10.0) H 02/24/17 10:31 Eos % (Auto) 2.7 % (0.0-4.0) 02/24/17 10:31 Baso % (Auto) 0.6 % (0.0-2.0) 02/24/17 10:31 Neut # 5.3 K/uL (1.8-7.0) 02/24/17 10:31 Lymph # 1.5 K/uL (1.0-4.3) 02/24/17 10:31 Bladen # 1.0 K/uL (0.0-0.8) H 02/24/17 10:31 Eos # 0.2 K/uL (0.0-0.7) 02/24/17 10:31 Baso # 0.0 K/uL (0.0-0.2) 02/24/17 10:31 Hemoglobin A 97.1 Percent (>96.0) 02/26/17 05:00 Hemoglobin A2 1.9 Percent (1.8-3.5) 02/26/17 05:00 Hemoglobin C 0.0 Percent (0.0-0.0) 02/26/17 05:00 Hemoglobin F () <1.0 Percent (<2.0) 02/26/17 05:00 Hemoglobin S 0.0 Percent (0.0-0.0) 02/26/17 05:00 Variant Hemoglobin 0.0 Percent (0.0-0.0) 02/26/17 05:00 Hemoglobinopathy Red Blood Count 3.77 Mill/mcL (3.80-5.10) L 02/26/17 05:00 Hemoglobinopathy Hct 28.2 % (35.0-45.0) L 02/26/17 05:00 Hemoglobinopathy Hgb 8.7 g/dL (11.7-15.5) L 02/26/17 05:00 Hemoglobinopathy MCV 74.8 fL (80.0-100.0) L 02/26/17 05:00 Hemoglobinopathy MCH 23.2 pg (27.0-33.0) L 02/26/17 05:00 Hemoglobinopathy RDW 20.0 % (11.0-15.0) H 02/26/17 05:00 Hemoglobinopathy Interp See note 02/26/17 05:00 PT 15.0 Seconds (9.8-13.1) H 02/27/17 06:00 INR 1.3 (0.9-1.2) H 02/27/17 06:00 APTT 30.4 Seconds (25.6-37.1) 02/27/17 06:00 D-Dimer, Quantitative 744 ng/mlDDU (0-230) H 02/24/17 10:31 Sodium 137 mmol/l (132-148) 02/27/17 06:00 Potassium 3.4 MMOL/L (3.6-5.0) L 02/27/17 06:00 Chloride 109 mmol/L (98-107) H 02/27/17 06:00 Carbon Dioxide 20 mmol/L (22-30) L 02/27/17 06:00 Anion Gap 11 (10-20) 02/27/17 06:00 BUN 9 mg/dl (7-17) 02/27/17 06:00 Creatinine 0.7 mg/dl (0.7-1.2) 02/27/17 06:00 Est GFR ( Amer) > 60 02/27/17 06:00 Est GFR (Non-Af Amer) > 60 02/27/17 06:00 POC Glucose (mg/dL) 131 mg/dL (65-110) H 02/28/17 06:21 Random Glucose 171 mg/dL (65-105) H 02/27/17 06:00 Hemoglobin A1c 7.0 % (4.2-6.5) H 02/26/17 05:00 Calcium 9.8 mg/dL (8.4-10.2) 02/27/17 06:00 Phosphorus 1.9 mg/dl (2.5-4.5) L 02/26/17 05:00 Magnesium 1.6 MG/DL (1.6-2.3) 02/26/17 05:00 Iron 19 ug/dL (37-170) L 02/24/17 18:37 TIBC 218 ug/dL (250-450) L 02/24/17 18:37 % Saturation 9 % (20-55) L 02/24/17 18:37 Ferritin 74.9 ng/Ml (11.1-264.0) 02/24/17 18:37 Total Bilirubin < 0.1 mg/dl (0.2-1.3) L 02/27/17 06:00 AST 31 U/L (14-36) 02/27/17 06:00 ALT 31 U/L (9-52) 02/27/17 06:00 Alkaline Phosphatase 108 U/L (38-126) 02/27/17 06:00 Troponin I < 0.0120 ng/mL (0.00-0.120) 02/24/17 10:31 Total Protein 7.2 G/DL (6.3-8.2) 02/27/17 06:00 Total Protein (PEP) 6.9 g/dL (6.1-8.1) 02/24/17 18:37 Albumin 2.7 g/dL (3.5-5.0) L 02/27/17 06:00 Albumin (PEP) 2.1 g/dL (3.8-4.8) L 02/24/17 18:37 Globulin 4.5 gm/dL (2.2-3.9) H 02/27/17 06:00 Albumin/Globulin Ratio 0.6 (1.0-2.1) L 02/27/17 06:00 Oejtt-4-Cntwvieje 0.5 g/dL (0.2-0.3) H 02/24/17 18:37 Xneiu-0-Olwmdedof 1.5 g/dL (0.5-0.9) H 02/24/17 18:37 Unec-1-Tjbudzcz 0.3 g/dL (0.4-0.6) L 02/24/17 18:37 Iklp-5-Nvnohuum 0.5 g/dL (0.2-0.5) 02/24/17 18:37 Gamma Globulins 2.0 g/dL (0.8-1.7) H 02/24/17 18:37 Abnorm Protein Band 1 TEST NOT PERFORMED 02/24/17 18:37 Abnorm Protein Band 2 TEST NOT PERFORMED 02/24/17 18:37 Abnorm Protein Band 3 TEST NOT PERFORMED 02/24/17 18:37 Ceruloplasmin 36 mg/dL (18-53) 02/26/17 05:00 Triglycerides 113 mg/DL (0-149) 02/26/17 05:00 Cholesterol 83 mg/dL (0-199) 02/26/17 05:00 LDL Cholesterol Direct 39 mg/dL (0-129) 02/26/17 05:00 HDL Cholesterol 18 MG/DL (30-70) L 02/26/17 05:00 Carcinoembryonic Ag 2.9 ng/mL (0-3.0) 02/26/17 05:00 Vitamin B12 991 pg/mL (239-931) H 02/24/17 18:37 Folate > 20.0 ng/mL 02/24/17 18:37 Thyroxine (T4) 7.24 ug/dl (5.5-11.0) 02/26/17 05:00 TSH 3rd Generation 3.55 mIU/ML (0.46-4.68) 02/26/17 05:00 PTH Intact Whole Molec 3 pg/mL (14-64) L 02/24/17 11:40 Calcium (PTH Intact) 10.2 mg/dL (8.6-10.4) 02/26/17 05:00 PTH w/Ion &Tot Calcium 2 pg/mL (14-64) L 02/26/17 05:00 PTH Related Protein TNP 02/26/17 05:00 Cortisol AM Sample 17.6 ug/dL (4.46-22.7) 02/26/17 05:00 ACTH 17 pg/mL (6-50) 02/26/17 05:00 Urine Color Yellow (YELLOW) 02/26/17 17:50 Urine Clarity Slighty-cloudy (Clear) 02/26/17 17:50 Urine pH 7.0 (5.0-8.0) 02/26/17 17:50 Ur Specific Warren[place] 1.014 (1.003-1.030) 02/26/17 17:50 Urine Protein Negative mg/dL (NEGATIVE) 02/26/17 17:50 Urine Glucose (UA) >=500 mg/dL (Normal) 02/26/17 17:50 Urine Ketones Negative mg/dL (NEGATIVE) 02/26/17 17:50 Urine Blood Negative (NEGATIVE) 02/26/17 17:50 Urine Nitrate Negative (NEGATIVE) 02/26/17 17:50 Urine Bilirubin Negative (NEGATIVE) 02/26/17 17:50 Urine Urobilinogen 2.0 mg/dL (0.2-1.0) H 02/26/17 17:50 Ur Leukocyte Esterase Large Arlen/uL (Negative) 02/26/17 17:50 Urine RBC (Auto) 2 /hpf (0-3) 02/26/17 17:50 Urine Microscopic WBC 40 /hpf (0-5) H 02/26/17 17:50 Ur Squamous Epith Cells 5 /hpf (0-5) 02/26/17 17:50 Urine Bacteria Rare (<OCC) 02/26/17 17:50 Ur Random Creatinine 80 mg/dL (20-320) 02/26/17 17:30 U Random Total Protein 369 mg/g creat (21-161) H 02/26/17 17:30 KIT & SPEP Interp See note 02/24/17 18:37 Hepatitis A IgM Ab Negative (NEGATIVE) 02/26/17 12:56 Hep Bs Antigen Negative (NEGATIVE) 02/26/17 12:56 Hep B Core IgM Ab Negative (NEGATIVE) 02/26/17 12:56 Hepatitis C Antibody Reactive (NEGATIVE) 02/26/17 12:56 HIV-1 Antibody TEST NOT PERFORMED 02/24/17 18:37 HIV-2 Antibody TEST NOT PERFORMED 02/24/17 18:37 HIV 1&2 Ag/Ab, 4th Gen Nonreactive (Nonreactive) 02/24/17 18:37 HIV 1&2 Antibody Screen Negative (NEGATIVE) 02/24/17 18:37 Aspergillus Antigen Not detected (Not Detected) 02/25/17 11:45 Aspergillus Index Value 0.19 (<0.50) 02/25/17 11:45 TB Test (QFT) Nil 0.03 IU/mL 02/25/17 11:45 TB Test Mitogen - Nil 6.64 IU/mL 02/25/17 11:45 TB Test TB - Nil 0.04 IU/mL 02/25/17 11:45 TB Test (QFT) Negative (Negative) 02/25/17 11:45 Blood Type A POSITIVE 02/27/17 06:00 Blood Type Confirm A POSITIVE 02/27/17 07:00 Antibody Screen Negative 02/27/17 06:00 Crossmatch See Detail 02/27/17 06:00 BBK History Checked No verified bt 02/27/17 06:00 - Hospital Course Hospital Course: 66yo F with PMHx osteoporosis, DM TII, GEETA mass admitted for hypercalcemia. Hypercalcemia treated and improved with IVF and IV zoledronic acid. GEETA mass bx with IR, H/O Dr. Dumont c/s and pt will FU with Onofre Dumont c/s no further workup recommended. Pt would like to follow with new PCP and not in the PAC after much discussion and offering FU appt with [facility]. Pt declines home O2 after 6min walking test shows pt desat. Rx for BMP follow up for Ca+ surveillance. FU with H/O and Endo. CT C/A/P with GEETA mass and possible mediastinal LN involvement and involves b/l lung lobe mets MRI brain: no acute changes GEETA mass bx: pending Discharge Exam - Head Exam Head Exam: ATRAUMATIC, NORMAL INSPECTION, NORMOCEPHALIC - Eye Exam Eye Exam: Normal appearance - ENT Exam ENT Exam: Mucous Membranes Moist - Neck Exam Neck exam: Full Rom, Normal Inspection - Respiratory Exam Respiratory Exam: NORMAL BREATHING PATTERN - Cardiovascular Exam Cardiovascular Exam: REGULAR RHYTHM. absent: Systolic Murmur - GI/Abdominal Exam GI & Abdominal Exam: Soft. absent: Tenderness - Extremities Exam Extremities exam: normal inspection - Neurological Exam Neurological exam: Alert, Oriented x3 - Psychiatric Exam Psychiatric exam: Normal Affect, Normal Mood - Skin Skin Exam: Dry, Warm Discharge Plan - Discharge Medications Prescriptions: Albuterol HFA [Ventolin HFA 90 mcg/actuation (8 g)] 2 puff INH RQ6 PRN 30 Days inhaler PRN Reason: Shortness Of Breath Alendronate [Fosamax] 70 mg PO QD7 30 Days tab Docusate [Colace] 100 mg PO BID 30 Days #60 cap Ferrous Sulfate [Feosol] 325 mg PO TID 30 Days #90 tab SITagliptin [Januvia] 100 mg PO DAILY #30 tab - Follow Up Plan Condition: FAIR Disposition: HOME/ ROUTINE Instructions: Lung Cancer (DC) Additional Instructions: follow up with Dr. Dumont and Dr. Conti establish care with PCP and inform Dr. Dumont Referrals: John Dumont MD [Staff Provider] - Sayda Conti MD [Medical Doctor] -
--- NOTE | 2017-02-28 13:37 | PN ---
DATE: ENDOCRINOLOGY FOLLOWUP NOTE LOCATION: Room 406, bed 2. SUBJECTIVE: This is a 66-year-old female, presenting here with symptomatic hypoglycemia related to frequent meal omissions or extremely poor oral intake because of marked nausea, dyspepsia and anorexia as noted thereof. She also has progressive shortness of breath, especially on exertion and was found by evaluation to have a left upper lobe mass for which she had actually refused initial workup last year [facility]. At this time, she is undergoing full extensive pulmonary evaluation for the above. No findings as mentioned. Her glycemic levels are fluctuating, but much improved at this time and the latest chemistry shows a BUN of 9, sodium 137, potassium 3.4, chloride 109, CO2 of 20, glucose 171 and creatinine 0.7. Her latest calcium levels with a calcium of 9.8 with an albumin of 2.7 and a corrected calcium of 11.1 mg/dL. Her parathyroid hormone levels were normal at less than 3 in the light of hypercalcemia as mentioned. She is undergoing full extensive hematologic and pulmonary workup for possible humoral hypercalcemia of malignancy. She received a stat dose of both pamidronate at 90 mg IV infusion with zoledronic had been given as 5 mg as a stat dose in the emergency room as noted. So, at this time, we will continue the low-dose Januvia given as 100 mg once daily as ordered. We will titrate incrementally as indicated to optimize metabolic control. We will continue the low-dose correction scale using Humalog insulin as given. We will follow. Sayda Conti MD
--- NOTE | 2017-02-28 23:56 | CP.PCM.PN ---
Subjective - Date & Time of Evaluation Date of Evaluation: 02/27/17 Time of Evaluation: 10:00 - Subjective Subjective: Feeling better Objective - Vital Signs/Intake and Output Vital Signs (last 24 hours): Temp Pulse Resp BP Pulse Ox 98.7 F 93 H 20 110/66 98 02/28/17 08:23 02/28/17 08:23 02/28/17 08:23 02/28/17 08:23 02/28/17 08:23 - Labs Labs: 02/28/17 08:03 02/27/17 06:00 PT 15.0 Seconds (9.8-13.1) H 02/27/17 06:00 INR 1.3 (0.9-1.2) H 02/27/17 06:00 APTT 30.4 Seconds (25.6-37.1) 02/27/17 06:00 - Head Exam Head Exam: ATRAUMATIC - Eye Exam Eye Exam: Normal appearance - ENT Exam ENT Exam: Mucous Membranes Dry - Respiratory Exam Respiratory Exam: NORMAL BREATHING PATTERN - Cardiovascular Exam Cardiovascular Exam: +S1, +S2 - GI/Abdominal Exam GI & Abdominal Exam: Normal Bowel Sounds Assessment and Plan (1) Hypercalcemia Assessment & Plan: resolving s/p bisphosphonate treatment likely malignancy related Status: Acute (2) Lung mass Assessment & Plan: s/p biopsy outpatient f/u Status: Acute (3) Anemia Assessment & Plan: chronic disease Status: Acute
[2017-03-02 15:17] LABS: ALBUMIN 13.1 Relative %; ALPHA-1 GLOBULIN 4.1 Relative %
== END 2017-02-28 12:48 | disposition home or self-care (01) | DRG 638 ==
LOC: H.ER 09:30 → H.ERHOLD 11:21 → H.TEL 16:46 → H.MEDSURG1 02-26 18:20
PROVIDERS: ADMIT Family Medicine Geriatric Medicine; ATTEND Family Medicine Geriatric Medicine
PROC: 0BD Respiratory System, Extraction (ICD-10-PCS; principal; 2017-02-27 09:00)
DX: E11.649 Type 2 diabetes mellitus with hypoglycemia without coma (principal); Z68.1 Body mass index [BMI] 19.9 or less, adult; J44.9 Chronic obstructive pulmonary disease, unspecified; E83.52 Hypercalcemia; D63.8 Anemia in other chronic diseases classified elsewhere; Z79.4 Long term (current) use of insulin; I10 Essential (primary) hypertension; E78.5 Hyperlipidemia, unspecified; M81.0 Age-related osteoporosis without current pathological fracture; R63.6 Underweight; F17.210 Nicotine dependence, cigarettes, uncomplicated; F10.21 Alcohol dependence, in remission; E87.6 Hypokalemia; R91.8 Other nonspecific abnormal finding of lung field

== ENCOUNTER 2017-03-23 18:10 | Inpatient (IN) | payer MEDICARE ==
[2017-03-23] MEDS ORDERED: Sodium Chloride 0.9% 1,000 ML IV STA ×2 (18:57→20:11)
[2017-03-23 19:01] LABS: VENOUS BLOOD GAS BASE EXCESS 2.8 mmol/L (0.0-2.0); VENOUS BLOOD GAS PCO2 44 mmHg (40-60); VENOUS BLOOD GAS PO2 34 mm/Hg (30-55); VENOUS BLOOD PH 7.41 (7.32-7.43)
[2017-03-23] MEDS ORDERED: Insulin Regular 100 units/ml IVP STA (19:03)
[2017-03-23 19:07] LABS: BASO # 0.1 K/uL (0.0-0.2); BASO % 0.3 % (0.0-2.0); HEMOGLOBIN 9.8 g/dL (12.0-16.0); LYMPH # 0.8 K/uL (1.0-4.3); MEAN CELL VOLUME 73.2 fl (81.0-99.0); MEAN CORPUSCULAR HEMOGLOBIN 23.2 pg (27.0-31.0); MEAN CORPUSCULAR HGB CONC 31.7 g/dL (33.0-37.0); MEAN PLATELET VOLUME 8.1 fl (7.2-11.7); MONO # 1.4 K/uL (0.0-0.8); MONO % 8.3 % (0.0-10.0); NEUT # 14.5 K/uL (1.8-7.0); NEUT % 86.4 % (50.0-75.0); PLATELET COUNT 496 K/uL (130-400); RBC 4.24 Mil/uL (3.80-5.20); RED CELL DISTRIBUTION WIDTH 20.2 % (11.5-14.5); WHITE BLOOD COUNT 16.8 K/uL (4.8-10.8)
--- NOTE | 2017-03-23 19:18 | ED PDOC ---
HPI: General Adult Time Seen by Provider: 03/23/17 18:26 Chief Complaint (Nursing): Weakness/Neurological Deficit Chief Complaint (Provider): Weakness/Neurological Deficit History Per: Patient, Family History/Exam Limitations: no limitations Current Symptoms Are (Timing): Still Present Additional Complaint(s): 57 y/o male presents to the ED complaining of weakness. Reports that he has not been eating and drinking since a week and a half due to difficulty swallowing, malaise and fatigue. Patient was recently diagnosed with lung cancer and has a mass in her chest that may be interfering with her swallowing ability. He lost a large amount of weight and his activity includes lying in bed and sleeping all day. Patient was seen by paper cup machine tender and oncologist and was advised to start chemotherapy but he is too weak. Denies any further medical complaints. Past Medical History Reviewed: Historical Data, Nursing Documentation, Vital Signs Vital Signs: Last Vital Signs Temp 97.3 F L 03/24/17 08:00 Pulse 67 03/24/17 08:00 Resp 18 03/24/17 08:00 BP 106/53 L 03/24/17 08:00 Pulse Ox 97 03/24/17 08:00 - Medical History PMH: Diabetes, HTN (denies) - Surgical History Other surgeries: Left leg surgery - Family History Family History: States: Unknown Family Hx - Social History Current smoker - smoking cessation education provided: Yes (Some days smoker) Alcohol: None Drugs: Denies - Home Medications Home Medications: Ambulatory Orders Medication Instructions Recorded Alendronate [Fosamax] 70 mg PO QD7 30 Days tab 02/28/17 Docusate [Colace] 100 mg PO BID 30 Days #60 cap 02/28/17 Ferrous Sulfate [Feosol] 325 mg PO TID 30 Days #90 tab 02/28/17 Insulin Glargine,Hum.rec.anlog 12 unit SC HS 03/23/17 [Toujeo Solostar] Pravastatin Sodium [Pravachol] 20 mg PO HS 03/23/17 Sitagliptin Phos/Metformin HCl 1 tab PO DAILY 03/23/17 [Janumet Xr 100-1,000 mg Tablet] - Allergies Allergies/Adverse Reactions: Allergies Allergy/AdvReac Type Severity Reaction Status Date / Time No Known Allergies Allergy Verified 02/10/17 11:16 Review of Systems ROS Statement: Except As Marked, All Systems Reviewed And Found Negative (As per HPI, otherwise negative) Constitutional: Positive for: Chills, Weakness, Malaise (and fatigue), Weight loss, Other (Generalized body ache). Negative for: Fever Respiratory: Positive for: Shortness of Breath Gastrointestinal: Positive for: Abdominal Pain Genitourinary Female: Positive for: Dysuria Musculoskeletal: Positive for: Leg Pain Physical Exam - Reviewed Nursing Documentation Reviewed: Yes Vital Signs Reviewed: Yes - Physical Exam Appears: Positive for: Uncomfortable, In Acute Distress (lethargic, cachectic) Head Exam: Positive for: ATRAUMATIC, NORMOCEPHALIC (with temporal wasting) Skin: Positive for: Warm, Dry Eye Exam: Positive for: EOMI, PERRL ENT: Positive for: Pharynx Is (clear), Other (dry mucus membranes) Neck: Positive for: Painless ROM, Supple Cardiovascular/Chest: Positive for: Regular Rate, Rhythm. Negative for: Murmur Respiratory: Positive for: Normal Breath Sounds. Negative for: Wheezing, Respiratory Distress Gastrointestinal/Abdominal: Positive for: Soft, Tenderness (mild diffuse). Negative for: Mass, Distended, Guarding, Rebound Back: Positive for: Normal Inspection. Negative for: Decreased ROM Extremity: Positive for: Normal ROM, Other (poor muscle bulk x 3 extrmities). Negative for: Pedal Edema, Calf Tenderness Lymphatic: Negative for: Adenopathy Neurologic/Psych: Positive for: Oriented (x3), Mood/Affect (depressed, flat), Other (Lethargic but arousable and answers questions appropriately). Negative for: Motor/Sensory Deficits - Laboratory Results Result Diagrams: 03/24/17 04:20 03/24/17 04:20 - ECG O2 Sat by Pulse Oximetry: 100 (RA) Pulse Ox Interpretation: Normal - Critical Care Total Time (In Min): 30 Documented Critical Care: Time excludes all time spent performint seperately billable procedures Medical Decision Making Medical Decision Making: Time: 18:34 Initial Impression: weakness Differential: dehydration, electrolyte abnormality, sepsis, failure to thrive, pneumonia, UTI Plan: Type and screen EKG CMP Lipase Magnesium Phosphorous Troponin I Urine dipstick CBC w/ differential Partial Thromboplastin Time Prothrombin Time Blood culture Urine culture nurse monitoring IV insertion (Saline lock) Dubois Urinalysis Reevalaution Elevated glucose, IV fluids and insulin ordered. Not acidotic. Elevated WBC, IV antibiotics ordered, broad spectrum coverage. Labs c/w hypercalcemia and dehydration (BUN/Cr.) MARCIN Dumont Hem/Onc. To be hydrated aggressively and then proceed with treatment for hypercalcemia based on repeat calcium in AM. MARCIN NINO Scribe Attestation: Documented by Lucian Kramer acting as a scribe for Naz Lopez MD. Scribe Attestation: All medical record entries made by the Scribe were at my direction and personally dictated by me. I have reviewed the chart and agree that the record accurately reflects my personal performance of the history, physical exam, medical decision making, and the department course for this patient. I have also personally directed, reviewed, and agree with the discharge instructions and disposition. Disposition - Clinical Impression Clinical Impression: Lung mass, Hypercalcemia, Failure to thrive Counseled Patient/Family Regarding: Studies Performed, Diagnosis - Disposition Disposition Time: 20:00 Condition: GUARDED - Pt Status Changed To: Hospital Disposition Of: Inpatient - Admit Certification Admit to Inpatient:: After my assessment, the patient will require hospitalization for at least two midnights. This is because of the severity of symptoms shown, intensity of services needed, and/or the medical risk in this patient being treated as an outpatient. - POA Present On Arrival: None
[2017-03-23 19:21] LABS: INR 1.4 (0.9-1.2); PARTIAL THROMBOPLASTIN TIME 23.6 Seconds (25.6-37.1); PROTHROMBIN TIME 15.7 Seconds (9.8-13.1)
[2017-03-23 19:36] LABS: LYMPHOCYTE 8 % (20-50); MONOCYTE 2 % (0-10); NEUTROPHIL 90 % (42-75); TOTAL CELLS COUNTED 100
[2017-03-23 19:37] LABS: PLATELET ESTIMATE INCREASED (NORMAL)
[2017-03-23 19:38] LABS: ANISOCYTOSIS MODERATE
[2017-03-23 19:39] LABS: ALB/GLOB RATIO 0.6 (1.0-2.1); ALBUMIN 3.5 g/dL (3.5-5.0); ALT/SGPT 27 U/L (9-52); AST/SGOT 33 U/L (14-36); BLOOD UREA NITROGEN 49 mg/dl (7-17); GFR AFRICAN-AMERICAN > 60; GFR NON-AFRICAN AMERICAN > 60; HYPOCHROMIC SLIGHT; LIPASE 15 U/L (23-300); MAGNESIUM 2.2 MG/DL (1.6-2.3); MICROCYTOSIS SLIGHT; ROULEAUX FORMATION SLIGHT; TARGET CELLS SLIGHT
[2017-03-23 21:49] LABS: URINE BACTERIA RARE (<OCC); URINE BILIRUBIN NEGATIVE (NEGATIVE); URINE BLOOD NEGATIVE (NEGATIVE); URINE CLARITY SLIGHTY-CLOUDY (Clear); URINE COLOR YELLOW (YELLOW); URINE GLUCOSE (UA) >=500 mg/dL (Normal); URINE HYALINE CAST 0-2 /hpf (0-2); URINE LEUKOCYTE ESTERASE NEG Leu/uL (Negative); URINE NITRATE NEGATIVE (NEGATIVE); URINE PROTEIN 30 mg/dL (NEGATIVE); URINE UROBILINOGEN 0.2-1.0 mg/dL (0.2-1.0)
--- NOTE | 2017-03-23 22:08 | CP.PCM.HP ---
History of Present Illness - History of Present Illness History of Present Illness: 66 yo ,f, Pmhx/o DM, HLD, Lung Ca, Osteoporosis presented to ED c/o dysphagia, fatigue, body aches, for the last 4 days. Patient's family reports that patient has not been eating for the last 7 days and she has difficulty swallowing for liquids and solid for the last 4 days, associated with worsening for SOB, occs dry cough, fatigue and body aches. Patient was seen by Hem-Onc after last discharge 02/28/17 and patient accepted to have Radiotherapy that was supposed to start tomorrow , but when patient was evaluated by radiologist today was found very weak and dehydrated and patient and family was advised to come to Ed. She denies fever, hemoptysis, n,v,diarrhea, abdominal pain, chest pain, pedal edema, orthopnea. Patient was also seen recent in our clinic after discharged 02/28/17 and patient and family decided advance directive of DNI. Patient desires CPR, but not intubation PMD: [facility]: Dr Gonzalez PMHx: IDDM, HLD, osteoporosis, hx of pancreatitis, hx of lung mass PSH: gall bladder sx, ORIF left ankle FH: Mother had DM, HTN, HLD; father had cancer/unknown SH: Current tobacco use (1/2 PPD for 15 years), previous ETOH abuse for 15 years (quit 11 years ago), denies illicit drug use; pt does not want to have case discussed with family All: NKDA Next of Kind: Patient's SonChintan Masters PH: [phone]. during admission, next of nancy and rest of the family agree with patient status: DNI Patient status: DNI Ed course VS: normal Labs: 16.8>9.8<496 CMP: Bun/Cr 49/0.7 CA: 14 Gluc 430 Imaging: EKG: NSR, RBB, QdII,DIII, AVF. CXR: GEETA lung increased in size compared with last CXR, with left deviation of trachea and left main bronchi. pending final reports Meds: Fluids NS 2 liters, Vanco/Zosyn x 1 dose, Humulin Insulin 4 unit IV Present on Admission - Present on Admission Any Indicators Present on Admission: No History of DVT/PE: No History of Uncontrolled Diabetes: No Decubitus Ulcer Present: No Review of Systems - Cardiovascular Cardiovascular: As Per HPI - Respiratory Respiratory: As Per HPI - Gastrointestinal Gastrointestinal: As Per HPI, Dysphagia Past Patient History - Infectious Disease Hx of Infectious Diseases: None - Past Medical History & Family History Past Medical History?: Yes - Past Social History Alcohol: None Drugs: Denies - CARDIAC Hx Hypertension: Yes (denies) - PULMONARY Hx Lung Cancer: Yes - NEUROLOGICAL Hx Neurological Disorder: No - ENDOCRINE/METABOLIC Hx Endocrine Disorders: Yes (DM) - HEMATOLOGICAL/ONCOLOGICAL Hx Hepatitis C: Yes - INTEGUMENTARY Hx Dermatological Problems: No - MUSCULOSKELETAL/RHEUMATOLOGICAL Hx Falls: No - GASTROINTESTINAL Hx Gastrointestinal Disorders: No - GENITOURINARY/GYNECOLOGICAL Hx Genitourinary Disorders: No - PSYCHIATRIC Hx Psychophysiologic Disorder: No Hx Substance Use: No - SURGICAL HISTORY Hx Surgeries: Yes Other/Comment: left leg surgery - ANESTHESIA Hx Anesthesia: Yes Hx Anesthesia Reactions: No Hx Malignant Hyperthermia: No Meds Allergies/Adverse Reactions: Allergies Allergy/AdvReac Type Severity Reaction Status Date / Time No Known Allergies Allergy Verified 02/10/17 11:16 Physical Exam - Constitutional Appears: Non-toxic, Cachectic, Chronically Ill - Head Exam Head Exam: ATRAUMATIC, NORMOCEPHALIC Additional comments: Dry tongue - Eye Exam Eye Exam: Normal appearance - Respiratory Exam Respiratory Exam: Decreased Breath Sounds. absent: Rales, Rhonchi, Wheezes Additional comments: left upper and mid chest absent breath sounds. - Cardiovascular Exam Cardiovascular Exam: REGULAR RHYTHM, +S1, +S2 - GI/Abdominal Exam GI & Abdominal Exam: Normal Bowel Sounds, Soft. absent: Guarding, Tenderness - Extremities Exam Extremities exam: Positive for: normal inspection. Negative for: pedal edema - Neurological Exam Neurological exam: Alert - Psychiatric Exam Psychiatric exam: Flat Affect - Skin Skin Exam: Intact, Pallor Results - Vital Signs Recent Vital Signs: Last Vital Signs Temp 96.1 F L 03/23/17 18:13 Pulse 88 03/23/17 21:38 Resp 18 03/23/17 21:38 BP 124/60 03/23/17 21:38 Pulse Ox 100 03/23/17 22:02 - Labs Result Diagrams: 03/23/17 18:56 03/23/17 18:56 Labs: Laboratory Results - last 24 hr 03/23/17 03/23/17 03/23/17 18:26 18:34 18:45 WBC RBC Hgb Hct MCV MCH MCHC RDW Plt Count MPV Neut % (Auto) Lymph % (Auto) [place] % (Auto) Eos % (Auto) Baso % (Auto) Neut # (Auto) Lymph # (Auto) [place] # (Auto) Eos # (Auto) Baso # (Auto) Neutrophils % (Manual) Lymphocytes % (Manual) Monocytes % (Manual) Platelet Estimate Hypochromasia (manual) Anisocytosis (manual) Microcytosis (manual) Target Cells Rouleaux PT INR APTT pO2 34 VBG pH 7.41 VBG pCO2 44 VBG HCO3 26.3 VBG Total CO2 29.3 H VBG O2 Sat (Calc) 65.3 H VBG Base Excess 2.8 H VBG Potassium 4.1 Sodium 138.0 Chloride 101.0 Glucose 432 H* Lactate 1.9 FiO2 21.0 Crit Value Called To Crit Value Called By Dr elena borja Crit Value Read Back Y Blood Gas Notified Time 1900 Potassium Carbon Dioxide Anion Gap BUN Creatinine Est GFR ( Amer) Est GFR (Non-Af Amer) POC Glucose (mg/dL) 348 H Random Glucose Calcium Phosphorus Magnesium Total Bilirubin AST ALT Alkaline Phosphatase Troponin I Total Protein Albumin Globulin Albumin/Globulin Ratio Lipase Venous Blood Potassium 4.1 Urine Color Urine Clarity Urine pH Ur Specific [place] Urine Protein Urine Glucose (UA) Urine Ketones Urine Blood Urine Nitrate Urine Bilirubin Urine Urobilinogen Ur Leukocyte Esterase Urine RBC (Auto) Urine Microscopic WBC Urine Bacteria Hyaline Casts Blood Type A POSITIVE Antibody Screen Negative BBK History Checked Patient has bt 03/23/17 03/23/17 03/23/17 18:56 18:56 18:56 WBC 16.8 H D RBC 4.24 Hgb 9.8 L Hct 31.0 L MCV 73.2 L MCH 23.2 L MCHC 31.7 L RDW 20.2 H Plt Count 496 H MPV 8.1 Neut % (Auto) 86.4 H Lymph % (Auto) 5.0 L [place] % (Auto) 8.3 Eos % (Auto) 0.0 Baso % (Auto) 0.3 Neut # (Auto) 14.5 H Lymph # (Auto) 0.8 L [place] # (Auto) 1.4 H Eos # (Auto) 0.0 Baso # (Auto) 0.1 Neutrophils % (Manual) 90 H Lymphocytes % (Manual) 8 L Monocytes % (Manual) 2 Platelet Estimate Increased H Hypochromasia (manual) Slight Anisocytosis (manual) Moderate Microcytosis (manual) Slight Target Cells Slight Rouleaux Slight PT 15.7 H INR 1.4 H APTT 23.6 L pO2 VBG pH VBG pCO2 VBG HCO3 VBG Total CO2 VBG O2 Sat (Calc) VBG Base Excess VBG Potassium Sodium 139 Chloride 101 Glucose Lactate FiO2 Crit Value Called To Crit Value Called By Crit Value Read Back Blood Gas Notified Time Potassium 4.2 Carbon Dioxide 27 Anion Gap 15 BUN 49 H Creatinine 0.7 Est GFR ( Amer) > 60 Est GFR (Non-Af Amer) > 60 POC Glucose (mg/dL) Random Glucose 430 H* D Calcium 14.0 H* Phosphorus 2.9 Magnesium 2.2 Total Bilirubin 0.5 AST 33 ALT 27 Alkaline Phosphatase 152 H D Troponin I 0.0120 Total Protein 9.3 H Albumin 3.5 D Globulin 5.8 H Albumin/Globulin Ratio 0.6 L Lipase 15 L Venous Blood Potassium Urine Color Urine Clarity Urine pH Ur Specific [place] Urine Protein Urine Glucose (UA) Urine Ketones Urine Blood Urine Nitrate Urine Bilirubin Urine Urobilinogen Ur Leukocyte Esterase Urine RBC (Auto) Urine Microscopic WBC Urine Bacteria Hyaline Casts Blood Type Antibody Screen BBK History Checked 03/23/17 03/23/17 21:37 21:40 WBC RBC Hgb Hct MCV MCH MCHC RDW Plt Count MPV Neut % (Auto) Lymph % (Auto) [place] % (Auto) Eos % (Auto) Baso % (Auto) Neut # (Auto) Lymph # (Auto) [place] # (Auto) Eos # (Auto) Baso # (Auto) Neutrophils % (Manual) Lymphocytes % (Manual) Monocytes % (Manual) Platelet Estimate Hypochromasia (manual) Anisocytosis (manual) Microcytosis (manual) Target Cells Rouleaux PT INR APTT pO2 VBG pH VBG pCO2 VBG HCO3 VBG Total CO2 VBG O2 Sat (Calc) VBG Base Excess VBG Potassium Sodium Chloride Glucose Lactate FiO2 Crit Value Called To Crit Value Called By Crit Value Read Back Blood Gas Notified Time Potassium Carbon Dioxide Anion Gap BUN Creatinine Est GFR ( Amer) Est GFR (Non-Af Amer) POC Glucose (mg/dL) 277 H Random Glucose Calcium Phosphorus Magnesium Total Bilirubin AST ALT Alkaline Phosphatase Troponin I Total Protein Albumin Globulin Albumin/Globulin Ratio Lipase Venous Blood Potassium Urine Color Yellow Urine Clarity Slighty-cloudy Urine pH 5.0 Ur Specific [place] 1.021 Urine Protein 30 Urine Glucose (UA) >=500 Urine Ketones Trace Urine Blood Negative Urine Nitrate Negative Urine Bilirubin Negative Urine Urobilinogen 0.2-1.0 Ur Leukocyte Esterase Neg Urine RBC (Auto) 1 Urine Microscopic WBC 2 Urine Bacteria Rare Hyaline Casts 0-2 Blood Type Antibody Screen BBK History Checked Assessment & Plan - Assessment and Plan (Free Text) Plan: 66 yo ,f, Pmhx/o DM, HLD, Lung Ca, Osteoporosis admitted for Dehydration, Severe Hypercalcemia, Failure to thrive 1) Dehydration -secondary to malignancy, low oral intake and dysphagia bun/Cr 47/0.7 -s/p IV fluids NS 2l -continue NS 200 ml/h 2) Left Lung Ca -CT C/A/P with GEETA mass and possible mediastinal LN involvement and involves b/ l lung lobe mets Biopsy Lung: Squamous cell carcinoma 02/27/17 CXR: GEETA lung increased in size compared with last CXR, with left deviation of trachea and left main bronchi. pending final reports -Hem-Onc consult suggested: Dr Dumont consulted by Ed attending.Suggest Hydration , no biphosphonates IV 3) Severe Hypercalcemia - CA: 14 -c/w Hydration NS 200 ml/h and reduce 150 ml/h tomorrow.( as Per Hospitalist Dr Lopez) --Hem-Onc consult suggested: Dr Dumont consulted by Ed attending.Suggest Hydration, no biphosphonates IV -f/u CBC, CMP -restart Alendronate after swallow test. 4) Leukocytosis -may be secondary respiratory infection((patient recent discharged from hospital ) aspirative PNA secondary to dysphagia -Consider Ct chest -s/p Vancomycin/Zosyn in Ed -c/w vancomycin 5) Dysphagia -NPO -secondary to left lung Ca -swallow test -consider GI consult -restart PO meds after swallow test 6) DM -Uncontrolled -Hyperglycemia 430 mg/dl -s/p insulin Ed -SSI 7) Cachectic -secondary to malignancy -weight loss 30 lbs in 1 month 8) DVT Prophylaxis -Lovenox 40 mg sc daily
[2017-03-23] MEDS ORDERED: Piperacillin/Tazobact 2.25 GM in Sodium Chloride 0.9% 50 ML IV STA (22:40)
[2017-03-23] MEDS ORDERED: Dextrose 50% SYRINGE Inj (50 ml) IV PRN (22:48)
[2017-03-23] MEDS ORDERED: Glucagon Recombinant 1 mg Inj IM PRN (22:48)
[2017-03-23] MEDS: Sodium Chloride 0.9% 1,000 ML IV SCH (23:15)
[2017-03-24] MEDS: Sodium Chloride 0.9% 1,000 ML IV SCH ×2 (04:31→19:48)
[2017-03-24 06:03] LABS: BASO % 0.3 % (0.0-2.0); EOS # 0.1 K/uL (0.0-0.7); EOS % 0.7 % (0.0-4.0); HEMOGLOBIN 8.8 g/dL (12.0-16.0); LYMPH % 5.9 % (20.0-40.0); MEAN CELL VOLUME 74.7 fl (81.0-99.0); MEAN CORPUSCULAR HEMOGLOBIN 22.8 pg (27.0-31.0); MEAN CORPUSCULAR HGB CONC 30.5 g/dL (33.0-37.0); MEAN PLATELET VOLUME 8.5 fl (7.2-11.7); MONO # 1.8 K/uL (0.0-0.8); MONO % 10.5 % (0.0-10.0); NEUT % 82.6 % (50.0-75.0); RBC 3.84 Mil/uL (3.80-5.20); RED CELL DISTRIBUTION WIDTH 19.7 % (11.5-14.5)
[2017-03-24 06:08] LABS: ALB/GLOB RATIO 0.6 (1.0-2.1); ALBUMIN 2.7 g/dL (3.5-5.0); ALT/SGPT 29 U/L (9-52); AST/SGOT 27 U/L (14-36); BLOOD UREA NITROGEN 32 mg/dl (7-17); CALCIUM 12.2 mg/dL (8.4-10.2); GFR AFRICAN-AMERICAN > 60; GFR NON-AFRICAN AMERICAN > 60
--- NOTE | 2017-03-24 08:01 | PQF GENQUE ---
This form is a permanent part of the medical record 03/24/17 Dr. Petar Golden, Documentation of Cachectic secondary to malignancy. Weight loss 30 pounds in 1 month. EMR has the patient listed as being 5 foot, weighing 77 pounds with a BMI of 15. If you concur would you please document the BMI in your notes or other BMI results. Clarification of your documentation is requested to better reflect the severity of illness and intensity of treatment of your patient. Indicators present [] Specify: [] [] Specify: [] [] Specify: [] [] Specify: [] Location in the medical record that reflects the above clinical findings: [] Treatment Provided: [] PHYSICIAN'S RESPONSE ok Based on your medical judgment of the clinical indicators outlined above please clarify the following: [] Practitioner response [] If unable to determine, please check the box, sign and date. Present On Admission (POA) Indicator: [] Present at the time of admission [] Not present at the time of admission [] Clinically Undetermined In responding to this query, please exercise your independent professional judgment. The fact that a question is asked does not imply that any particular answer is desired or expected. Thank you for your clarification on this documentation. If you have any questions please call:[phone] * Thank you, Dorcas Weir RN [facility]
[2017-03-24] MEDS: Insulin Lispro (humaLOG) 100 Units/ml Inj SC SCH ×4 (08:20→21:20)
[2017-03-24] MEDS ORDERED: Sodium Chloride 0.9% 1,000 ML IV SCH (08:30)
--- NOTE | 2017-03-24 09:38 | CP.PCM.PN ---
Subjective - Date & Time of Evaluation Date of Evaluation: 03/24/17 Time of Evaluation: 08:30 - Subjective Subjective: Pt seen and examined at bedside. Witnessed resting. Pt denied overnight event. Reports dysphagia for 2 weeks, unable to eat. Stated dysphagia to solid foods and progressed to liquids. Currently able to tolerate liquid intake. Denies cp/ sob/n/v/constipation/diarrhea. Family at bedside. Discussed current plan including current DNI status but proceed with CPR. Pt's caregiver requests further time for consideration of options. BMI 15.0 kg/m2 Objective - Vital Signs/Intake and Output Vital Signs (last 24 hours): Temp Pulse Resp BP Pulse Ox 97.3 F L 67 18 106/53 L 97 03/24/17 08:00 03/24/17 08:00 03/24/17 08:00 03/24/17 08:00 03/24/17 08:00 Intake and Output: 03/24/17 03/24/17 06:59 18:59 Intake Total 1750 Output Total 200 Balance 1550 - Medications Medications: Current Medications Acetaminophen (Tylenol 325mg Tab) 650 mg PO Q6 PRN PRN Reason: Fever >100.4 F Dextrose (Dextrose 50% Inj) 0 ml IV STAT PRN; Protocol PRN Reason: Hypoglycemia Protocol Dextrose (Glutose 15) 0 gm PO ONCE PRN; Protocol PRN Reason: Hypoglycemia Protocol Enoxaparin Sodium (Lovenox) 40 mg SC DAILY ANILA PRN Reason: Protocol Glucagon (Glucagen Diagnostic Kit) 0 mg IM STAT PRN; Protocol PRN Reason: Hypoglycemia Protocol Hydromorphone HCl (Dilaudid) 0.5 mg IVP Q6 PRN PRN Reason: Pain, severe (8-10) Last Admin: 03/23/17 23:29 Dose: 0.5 mg Vancomycin HCl 500 mg/ Sodium (Chloride) 100 mls @ 100 mls/hr IVPB Q12 ANILA PRN Reason: Protocol Piperacillin Sod/Tazobactam (Sod 3.375 gm/ Sodium Chloride) 100 mls @ 100 mls/ hr IVPB Q12 ANILA PRN Reason: Protocol Sodium Chloride (Sodium Chloride 0.9%) 1,000 mls @ 106 mls/hr IV .[id number] [facility] Stop: 03/25/17 08:19 Insulin Human Lispro (Humalog) 0 units SC ACHS ANILA PRN Reason: Protocol Last Admin: 03/24/17 08:20 Dose: Not Given Morphine Sulfate (Morphine) 2 mg IVP Q6 PRN PRN Reason: Pain, moderate (4-7) - Labs Labs: 03/24/17 04:20 03/24/17 04:20 PT 15.7 Seconds (9.8-13.1) H 03/23/17 18:56 INR 1.4 (0.9-1.2) H 03/23/17 18:56 APTT 23.6 Seconds (25.6-37.1) L 03/23/17 18:56 - Constitutional Appears: Cachectic - Eye Exam Eye Exam: EOMI - Neck Exam Neck Exam: Full ROM - Respiratory Exam Respiratory Exam: Clear to Ausculation Bilateral, NORMAL BREATHING PATTERN - Cardiovascular Exam Cardiovascular Exam: REGULAR RHYTHM, +S1, +S2 - GI/Abdominal Exam GI & Abdominal Exam: Soft, Normal Bowel Sounds - Extremities Exam Extremities Exam: absent: Calf Tenderness - Back Exam Back Exam: absent: CVA tenderness (L), CVA tenderness (R) - Neurological Exam Neurological Exam: Alert, Awake, CN II-XII Intact - Psychiatric Exam Psychiatric exam: Normal Affect Assessment and Plan - Assessment and Plan (Free Text) Plan: 66 yo ,f, Pmhx/o DM, HLD, Lung Ca, Osteoporosis admitted for Dehydration, Severe Hypercalcemia, Failure to thrive 1) Dehydration -secondary to malignancy, low oral intake and dysphagia x 3 weeks -bun/Cr 47/0.7 -s/p IV fluids NS 2l -continue NS 106 ml/h 2) Left Lung Ca -CT C/A/P with GEETA mass and possible mediastinal LN involvement and involves b/ l lung lobe mets Biopsy Lung: Squamous cell carcinoma 02/27/17 CXR: GEETA lung increased in size compared with last CXR, with left deviation of trachea and left main bronchi. pending final reports -Hem-Onc consult suggested: Dr Dumont consulted by Ed attending. Suggest Hydration, no biphosphonates IV 3) Severe Hypercalcemia - CA: 14; f/u value 12.2 -c/w Hydration NS 200 ml/h and reduce 150 ml/h tomorrow.( as Per Hospitalist Dr Lopez) --Hem-Onc consult suggested: Dr Dumont consulted by Ed attending.Suggest Hydration, no biphosphonates IV -f/u CBC, CMP -restart Alendronate after swallow test. 4) Leukocytosis -may be secondary respiratory infection (patient recent discharged from hospital ) aspiration PNA secondary to dysphagia -Consider Ct chest -s/p Vancomycin/Zosyn in Ed -c/w vancomycin 5) Dysphagia -NPO -secondary to left lung Ca -swallow test -consider GI consult -restart PO meds after swallow test 6) DM -Uncontrolled -Hyperglycemia 430 mg/dl -s/p insulin Ed -Humalog 12 -SSI 7) Pain management -lumbar -lidoderm patch 8) Cachectic -secondary to malignancy -weight loss 30 lbs in 1 month 9) DVT Prophylaxis -Lovenox 40 mg sc daily
[2017-03-24] MEDS: Enoxaparin 40 mg Syringe SC SCH ×2 (10:03→10:09)
--- NOTE | 2017-03-24 10:37 | RAD ---
HISTORY: weakness COMPARISON: Comparison is made with 02/28/2017 FINDINGS: LUNGS: Again seen is large mass lesion at the left upper lung extending to the left mediastinum. There are reticular opacities at the lung bases left more than right likely represent lung fibrosis. PLEURA: No significant pleural effusion identified, no pneumothorax apparent. CARDIOVASCULAR: Normal. OSSEOUS STRUCTURES: No significant abnormalities. VISUALIZED UPPER ABDOMEN: Normal. OTHER FINDINGS: None. IMPRESSION: Re- demonstration of large mass lesion at the left upper lung extending to the left mediastinum and left hilum. No significant interval change in the lungs noted since the previous exam.
[2017-03-24] MEDS: Piperacillin/Tazobact 3.375 GM in Sodium Chloride 0.9% 100 ML IVPB SCH ×2 (11:07→21:22)
[2017-03-24] MEDS: Lidocaine 5% Patch TD SCH (14:53)
[2017-03-24] MEDS ORDERED: Chlorhexidine Gluconate 1 APPL/PKT TP ONE (16:55)
--- NOTE | 2017-03-24 17:02 | CARD ---
APPROVED REPORT EKG Measurement Heart [id number] <Conclusion> Normal sinus rhythm Right bundle branch block Inferior infarct, age undetermined Abnormal ECG
--- NOTE | 2017-03-24 22:55 | CP.PCM.CON ---
History of Present Illness - History of Present Illness History of Present Illness: 66 year old female with a history of former tobacco abuse, emphysema, osteoporosis, stage IV NSCLC not on treatment admitted with poor PO intake and dehydration, found to be hypercalcemic. The patient was support to initiate palliative radiotherapy given her large lung tumor with extension into the mediastinum. She was unable to start treatment due to her clinical decline. The patient notes to worsening dysphagia to both solids and liquids. She has been more weak and notes to continued weightloss. Past medical history: emphysema, osteoporosis, stage IV NSCLC Past surgical history: Denies Family history: Denies hematologic and oncologic problems Social history: Former tobacco abuse. Allergies: NKA Review of systems: All remaining review of systems including HEENT, cardiovascular, respiratory, gastrointestinal, genitourinary, musculoskeletal, dermatologic, neurologic, and psychiatric are negative unless mentioned in the HPI. Past Patient History - Infectious Disease Hx of Infectious Diseases: None - Past Medical History & Family History Past Medical History?: Yes - Past Social History Alcohol: None Drugs: Denies - CARDIAC Hx Hypertension: Yes (denies) - PULMONARY Hx Lung Cancer: Yes - NEUROLOGICAL Hx Neurological Disorder: No - HEENT Hx HEENT Problems: No - RENAL Hx Chronic Kidney Disease: No - ENDOCRINE/METABOLIC Hx Endocrine Disorders: Yes (DM) - HEMATOLOGICAL/ONCOLOGICAL Hx Hepatitis C: Yes - INTEGUMENTARY Hx Dermatological Problems: No - MUSCULOSKELETAL/RHEUMATOLOGICAL Hx Falls: No - GASTROINTESTINAL Hx Gastrointestinal Disorders: No - GENITOURINARY/GYNECOLOGICAL Hx Genitourinary Disorders: No - PSYCHIATRIC Hx Psychophysiologic Disorder: No Hx Substance Use: No - SURGICAL HISTORY Hx Surgeries: Yes Other/Comment: left leg surgery - ANESTHESIA Hx Anesthesia: Yes Hx Anesthesia Reactions: No Hx Malignant Hyperthermia: No Meds Allergies/Adverse Reactions: Allergies Allergy/AdvReac Type Severity Reaction Status Date / Time No Known Allergies Allergy Verified 02/10/17 11:16 - Medications Medications: Current Medications Acetaminophen (Tylenol 325mg Tab) 650 mg PO Q6 PRN PRN Reason: Fever >100.4 F Dextrose (Dextrose 50% Inj) 0 ml IV STAT PRN; Protocol PRN Reason: Hypoglycemia Protocol Dextrose (Glutose 15) 0 gm PO ONCE PRN; Protocol PRN Reason: Hypoglycemia Protocol Enoxaparin Sodium (Lovenox) 40 mg SC DAILY ANILA PRN Reason: Protocol Last Admin: 02/06/18 10:09 Dose: Not Given Glucagon (Glucagen Diagnostic Kit) 0 mg IM STAT PRN; Protocol PRN Reason: Hypoglycemia Protocol Hydromorphone HCl (Dilaudid) 0.5 mg IVP Q6 PRN PRN Reason: Pain, severe (8-10) Last Admin: 03/23/17 23:29 Dose: 0.5 mg Vancomycin HCl 500 mg/ Sodium (Chloride) 100 mls @ 100 mls/hr IVPB Q12 ANILA PRN Reason: Protocol Last Admin: 03/24/17 20:07 Dose: 100 mls/hr Piperacillin Sod/Tazobactam (Sod 3.375 gm/ Sodium Chloride) 100 mls @ 100 mls/ hr IVPB Q12 ANILA PRN Reason: Protocol Last Admin: 03/24/17 21:22 Dose: 100 mls/hr Sodium Chloride (Sodium Chloride 0.9%) 1,000 mls @ 84 mls/hr IV .[id number] [facility] Stop: 03/25/17 08:19 Last Admin: 03/24/17 19:48 Dose: Not Given Insulin Human Lispro (Humalog) 0 units SC ACHS ANILA PRN Reason: Protocol Last Admin: 03/24/17 21:20 Dose: Not Given Lidocaine (Lidoderm) 1 ea TD DAILY [facility] Last Admin: 03/24/17 14:53 Dose: 1 ea Morphine Sulfate (Morphine) 2 mg IVP Q6 PRN PRN Reason: Pain, moderate (4-7) Multivitamins/Vitamin C (Multi-Delyn Liquid) 15 ml PO DAILY [facility] Physical Exam - Constitutional Appears: Cachectic - Eye Exam Eye Exam: Normal appearance - ENT Exam ENT Exam: Mucous Membranes Dry - Respiratory Exam Respiratory Exam: Decreased Breath Sounds - Cardiovascular Exam Cardiovascular Exam: +S1, +S2 - GI/Abdominal Exam GI & Abdominal Exam: Normal Bowel Sounds - Extremities Exam Extremities exam: Positive for: normal inspection - Neurological Exam Neurological exam: Oriented x3 - Psychiatric Exam Psychiatric exam: Normal Affect, Normal Mood - Skin Skin Exam: Warm Results - Vital Signs Recent Vital Signs: Last Vital Signs Temp 98.2 F 03/24/17 20:09 Pulse 73 03/24/17 20:09 Resp 16 03/24/17 20:09 BP 108/62 03/24/17 20:09 Pulse Ox 98 03/24/17 20:09 - Labs Result Diagrams: 03/24/17 04:20 03/24/17 04:20 Labs: Laboratory Results - last 24 hr 03/23/17 03/23/17 03/24/17 22:37 22:37 02:31 WBC RBC Hgb Hct MCV MCH MCHC RDW Plt Count MPV Neut % (Auto) Lymph % (Auto) [place] % (Auto) Eos % (Auto) Baso % (Auto) Neut # (Auto) Lymph # (Auto) [place] # (Auto) Eos # (Auto) Baso # (Auto) Sodium Potassium Chloride Carbon Dioxide Anion Gap BUN Creatinine Est GFR ( Amer) Est GFR (Non-Af Amer) POC Glucose (mg/dL) 250 H Random Glucose Lactic Acid Calcium Total Bilirubin AST ALT Alkaline Phosphatase Troponin I Total Protein Albumin Globulin Albumin/Globulin Ratio Procalcitonin Ur Random Creatinine 52.6 Ur Random Sodium 49 Ur Random Potassium 45.6 03/24/17 03/24/17 03/24/17 04:20 04:20 04:20 WBC 17.0 H RBC 3.84 Hgb 8.8 L Hct 28.7 L MCV 74.7 L MCH 22.8 L MCHC 30.5 L RDW 19.7 H Plt Count 415 H MPV 8.5 Neut % (Auto) 82.6 H Lymph % (Auto) 5.9 L [place] % (Auto) 10.5 H Eos % (Auto) 0.7 Baso % (Auto) 0.3 Neut # (Auto) 14.0 H Lymph # (Auto) 1.0 [place] # (Auto) 1.8 H Eos # (Auto) 0.1 Baso # (Auto) 0.0 Sodium 145 Potassium 3.4 L Chloride 111 H Carbon Dioxide 26 Anion Gap 11 BUN 32 H Creatinine 0.7 Est GFR ( Amer) > 60 Est GFR (Non-Af Amer) > 60 POC Glucose (mg/dL) Random Glucose 265 H Lactic Acid 1.3 Calcium 12.2 H Total Bilirubin 0.3 AST 27 ALT 29 Alkaline Phosphatase 117 Troponin I 0.0230 Total Protein 7.6 Albumin 2.7 L D Globulin 4.9 H Albumin/Globulin Ratio 0.6 L Procalcitonin Ur Random Creatinine Ur Random Sodium Ur Random Potassium 03/24/17 03/24/17 03/24/17 04:20 05:39 10:48 WBC RBC Hgb Hct MCV MCH MCHC RDW Plt Count MPV Neut % (Auto) Lymph % (Auto) [place] % (Auto) Eos % (Auto) Baso % (Auto) Neut # (Auto) Lymph # (Auto) [place] # (Auto) Eos # (Auto) Baso # (Auto) Sodium Potassium Chloride Carbon Dioxide Anion Gap BUN Creatinine Est GFR ( Amer) Est GFR (Non-Af Amer) POC Glucose (mg/dL) 259 H 283 H Random Glucose Lactic Acid Calcium Total Bilirubin AST ALT Alkaline Phosphatase Troponin I Total Protein Albumin Globulin Albumin/Globulin Ratio Procalcitonin 0.34 Ur Random Creatinine Ur Random Sodium Ur Random Potassium 03/24/17 03/24/17 03/24/17 11:57 16:18 21:03 WBC RBC Hgb Hct MCV MCH MCHC RDW Plt Count MPV Neut % (Auto) Lymph % (Auto) [place] % (Auto) Eos % (Auto) Baso % (Auto) Neut # (Auto) Lymph # (Auto) [place] # (Auto) Eos # (Auto) Baso # (Auto) Sodium Potassium Chloride Carbon Dioxide Anion Gap BUN Creatinine Est GFR ( Amer) Est GFR (Non-Af Amer) POC Glucose (mg/dL) 294 H 231 H Random Glucose Lactic Acid Calcium Total Bilirubin AST ALT Alkaline Phosphatase Troponin I 0.0160 Total Protein Albumin Globulin Albumin/Globulin Ratio Procalcitonin Ur Random Creatinine Ur Random Sodium Ur Random Potassium Assessment & Plan (1) Hypercalcemia Assessment and Plan: secondary to malignancy; paraneoplastic improving with hydration will add bisphosphonate in AM Status: Acute (2) Lung cancer Assessment and Plan: stage IV supportive care recommend palliative care evaluation given failure to thrive Status: Acute (3) Anemia Assessment and Plan: chronic disease from malignancy borderline iron stores transfusion support PRN Status: Acute (4) Leukocytosis Assessment and Plan: on antibiotics Status: Acute (5) Coagulopathy Assessment and Plan: nutritional Thank you for this interesting consult. Status: Acute
[2017-03-25 06:24] LABS: HEMOGLOBIN 10.1 g/dL (12.0-16.0); MEAN CELL VOLUME 74.1 fl (81.0-99.0); MEAN CORPUSCULAR HEMOGLOBIN 23.2 pg (27.0-31.0); MEAN CORPUSCULAR HGB CONC 31.3 g/dL (33.0-37.0); RBC 4.36 Mil/uL (3.80-5.20); RED CELL DISTRIBUTION WIDTH 20.4 % (11.5-14.5); WHITE BLOOD COUNT 15.4 K/uL (4.8-10.8)
[2017-03-25 06:36] LABS: BLOOD UREA NITROGEN 20 mg/dl (7-17); CALCIUM 11.1 mg/dL (8.4-10.2); GFR AFRICAN-AMERICAN > 60; GFR NON-AFRICAN AMERICAN > 60
--- NOTE | 2017-03-25 07:52 | CP.PCM.PN ---
Subjective - Date & Time of Evaluation Date of Evaluation: 03/25/17 Time of Evaluation: 07:40 - Subjective Subjective: pt seen and examined at bedside. denies significant overnight events. After fecal impaction removed yesterday, patient has had regular bowel movements. More awake and alert with coherent thoughts/communication today. denies: cp/sob/ n/v. Objective - Vital Signs/Intake and Output Vital Signs (last 24 hours): Temp Pulse Resp BP Pulse Ox 97.5 F L 85 19 106/58 L 96 03/25/17 00:09 03/25/17 00:09 03/25/17 00:09 03/25/17 00:09 03/25/17 00:09 Intake and Output: 03/25/17 03/25/17 06:59 18:59 Intake Total 504 Output Total 850 Balance -346 - Medications Medications: Current Medications Acetaminophen (Tylenol 325mg Tab) 650 mg PO Q6 PRN PRN Reason: Fever >100.4 F Dextrose (Dextrose 50% Inj) 0 ml IV STAT PRN; Protocol PRN Reason: Hypoglycemia Protocol Dextrose (Glutose 15) 0 gm PO ONCE PRN; Protocol PRN Reason: Hypoglycemia Protocol Enoxaparin Sodium (Lovenox) 40 mg SC DAILY [facility]ILA PRN Reason: Protocol Last Admin: 03/24/17 10:09 Dose: Not Given Glucagon (Glucagen Diagnostic Kit) 0 mg IM STAT PRN; Protocol PRN Reason: Hypoglycemia Protocol Hydromorphone HCl (Dilaudid) 0.5 mg IVP Q6 PRN PRN Reason: Pain, severe (8-10) Last Admin: 03/23/17 23:29 Dose: 0.5 mg Vancomycin HCl 500 mg/ Sodium (Chloride) 100 mls @ 100 mls/hr IVPB Q12 ANILA PRN Reason: Protocol Last Admin: 03/24/17 20:07 Dose: 100 mls/hr Piperacillin Sod/Tazobactam (Sod 3.375 gm/ Sodium Chloride) 100 mls @ 100 mls/ hr IVPB Q12 ANILA PRN Reason: Protocol Last Admin: 03/24/17 21:22 Dose: 100 mls/hr Sodium Chloride (Sodium Chloride 0.9%) 1,000 mls @ 84 mls/hr IV .[id number] [facility] Stop: 03/25/17 08:19 Last Admin: 03/24/17 19:48 Dose: Not Given Insulin Human Lispro (Humalog) 0 units SC ACHS ANILA PRN Reason: Protocol Last Admin: 03/24/17 21:20 Dose: Not Given Lidocaine (Lidoderm) 1 ea TD DAILY [facility] Last Admin: 03/24/17 14:53 Dose: 1 ea Morphine Sulfate (Morphine) 2 mg IVP Q6 PRN PRN Reason: Pain, moderate (4-7) Multivitamins/Vitamin C (Multi-Delyn Liquid) 15 ml PO DAILY [facility]ILA Pamidronate Disodium (Aredia) 90 mg IV ONCE ONE Stop: 03/25/17 10:01 - Labs Labs: 03/25/17 06:10 03/25/17 06:10 PT 15.7 Seconds (9.8-13.1) H 03/23/17 18:56 INR 1.4 (0.9-1.2) H 03/23/17 18:56 APTT 23.6 Seconds (25.6-37.1) L 03/23/17 18:56 - Constitutional Appears: Well, No Acute Distress - Eye Exam Eye Exam: EOMI, Normal appearance - Neck Exam Neck Exam: Full ROM - Respiratory Exam Respiratory Exam: Clear to Ausculation Bilateral, NORMAL BREATHING PATTERN. absent: Wheezes - Cardiovascular Exam Cardiovascular Exam: REGULAR RHYTHM, +S1, +S2 - GI/Abdominal Exam GI & Abdominal Exam: Soft, Normal Bowel Sounds. absent: Tenderness - Extremities Exam Extremities Exam: absent: Calf Tenderness - Back Exam Back Exam: absent: CVA tenderness (L), CVA tenderness (R) - Neurological Exam Neurological Exam: Alert, Awake, CN II-XII Intact, Oriented x3 - Psychiatric Exam Psychiatric exam: Normal Affect, Normal Mood Assessment and Plan - Assessment and Plan (Free Text) Plan: 66 yo ,f, Pmhx/o DM, HLD, Lung Ca, Osteoporosis admitted for Dehydration, Severe Hypercalcemia, Failure to thrive 1) Left Lung Ca: stage IV NSCLC -CT C/A/P with GEETA mass and possible mediastinal LN involvement and involves b/ l lung lobe mets -Biopsy Lung: Squamous cell carcinoma 02/27/17 -CXR: GEETA lung increased in size compared with last CXR, with left deviation of trachea and left main bronchi -Hem-Onc: Dr Dumont: start bisphosphonates this AM -supportive care; Recommended home hospice 2) Dehydration -secondary to malignancy, low oral intake and dysphagia x 3 weeks -bun/Cr 47/0.7; 20/0.6 @ 03/25/2017 -s/p IV fluids NS 2l -PO liquid diet 3) Hypercalcemia 2/2 malignancy - CA: 14; f/u value 12.2 -s/p hydration -Hem-Onc: Dr Dumont start bisphosphonates this AM -restart Alendronate after current progression from liquid diet to solids 4) Leukocytosis -may be secondary respiratory infection (patient recent discharged from hospital ) -aspiration PNA secondary to dysphagia -c/w Vancomycin/Zosyn; Vanc trough tomorrow -pending UCX 5) Dysphagia -secondary to left lung Ca -swallow test: pt able to start on PO liquid; begin trial of soft solid diet at dinner time -consider GI consult 6) DM -Uncontrolled -Hyperglycemia 430 mg/dl -s/p insulin Ed -Humalog 12 -SSI 7) Pain management -lumbar -lidoderm patch 8) Cachectic -secondary to malignancy -weight loss 30 lbs in 1 month 9) DVT Prophylaxis -Lovenox 40 mg sc daily (pt refused 03/24/2017; resumed 03/25/2017) 10) Line -Heidi hernandez
[2017-03-25] MEDS: Enoxaparin 40 mg Syringe SC SCH (08:45)
[2017-03-25] MEDS: Multi Vitamins 15 mL UD Oral Solution PO SCH (08:45)
[2017-03-25] MEDS: Insulin Lispro (humaLOG) 100 Units/ml Inj SC SCH ×4 (08:45→22:12)
[2017-03-25] MEDS: Sodium Chloride 0.9% 1,000 ML IV SCH (08:46)
[2017-03-25] MEDS: Lidocaine 5% Patch TD SCH (08:46)
[2017-03-25] MEDS: Piperacillin/Tazobact 3.375 GM in Sodium Chloride 0.9% 100 ML IVPB SCH ×2 (08:57→21:07)
[2017-03-25] MEDS ORDERED: Pamidronate 90 mg/10 ml Inj IV ONE (10:00)
[2017-03-25] MEDS ORDERED: Potassium CL 10 MEQ/50 ML 50 ML IVPB ONE ×2 (15:20→18:00)
--- NOTE | 2017-03-25 19:36 | CP.PCM.PN ---
Subjective - Date & Time of Evaluation Date of Evaluation: 03/25/17 Time of Evaluation: 11:00 - Subjective Subjective: Feeling better family at bedside Objective - Vital Signs/Intake and Output Vital Signs (last 24 hours): Temp Pulse Resp BP Pulse Ox 97.2 F L 74 20 114/65 96 03/25/17 15:30 03/25/17 15:30 03/25/17 15:30 03/25/17 15:30 03/25/17 15:30 Intake and Output: 03/25/17 03/26/17 18:59 06:59 Intake Total 1126 Output Total 1250 Balance -124 - Medications Medications: Current Medications Acetaminophen (Tylenol 325mg Tab) 650 mg PO Q6 PRN PRN Reason: Fever >100.4 F Dextrose (Dextrose 50% Inj) 0 ml IV STAT PRN; Protocol PRN Reason: Hypoglycemia Protocol Dextrose (Glutose 15) 0 gm PO ONCE PRN; Protocol PRN Reason: Hypoglycemia Protocol Enoxaparin Sodium (Lovenox) 40 mg SC DAILY ANILA PRN Reason: Protocol Last Admin: 03/25/17 08:45 Dose: 40 mg Glucagon (Glucagen Diagnostic Kit) 0 mg IM STAT PRN; Protocol PRN Reason: Hypoglycemia Protocol Hydromorphone HCl (Dilaudid) 0.5 mg IVP Q6 PRN PRN Reason: Pain, severe (8-10) Last Admin: 03/23/17 23:29 Dose: 0.5 mg Vancomycin HCl 500 mg/ Sodium (Chloride) 100 mls @ 100 mls/hr IVPB Q12 ANILA PRN Reason: Protocol Last Admin: 03/25/17 08:57 Dose: 100 mls/hr Piperacillin Sod/Tazobactam (Sod 3.375 gm/ Sodium Chloride) 100 mls @ 100 mls/ hr IVPB Q12 ANILA PRN Reason: Protocol Last Admin: 03/25/17 08:57 Dose: 100 mls/hr Insulin Human Lispro (Humalog) 0 units SC ACHS ANILA PRN Reason: Protocol Last Admin: 03/25/17 17:34 Dose: 3 units Lidocaine (Lidoderm) 1 ea TD DAILY ANILA Last Admin: 03/25/17 08:46 Dose: 1 ea Multivitamins/Vitamin C (Multi-Delyn Liquid) 15 ml PO DAILY [facility]ILA Last Admin: 02/07/18 08:45 Dose: 15 ml Pamidronate Disodium (Aredia) 90 mg IV ONCE ONE Stop: 03/25/17 10:01 - Labs Labs: 03/25/17 06:10 03/25/17 06:10 PT 15.7 Seconds (9.8-13.1) H 03/23/17 18:56 INR 1.4 (0.9-1.2) H 03/23/17 18:56 APTT 23.6 Seconds (25.6-37.1) L 03/23/17 18:56 - Constitutional Appears: Cachectic - Head Exam Head Exam: ATRAUMATIC - Eye Exam Eye Exam: Normal appearance - ENT Exam ENT Exam: Mucous Membranes Dry - Respiratory Exam Respiratory Exam: Decreased Breath Sounds - Cardiovascular Exam Cardiovascular Exam: +S1, +S2 - GI/Abdominal Exam GI & Abdominal Exam: Normal Bowel Sounds Assessment and Plan (1) Hypercalcemia Assessment & Plan: on IV fluids bisphosphonate treatment today Status: Acute (2) Lung cancer Assessment & Plan: supportive care palliative care and hospice eval Status: Acute (3) Anemia Status: Acute (4) Leukocytosis Status: Acute (5) Coagulopathy Status: Acute
[2017-03-26 08:01] VITALS: BMI 15.0
[2017-03-26 08:39] LABS: MEAN CELL VOLUME 73.5 fl (81.0-99.0); MEAN CORPUSCULAR HEMOGLOBIN 23.1 pg (27.0-31.0); MEAN CORPUSCULAR HGB CONC 31.4 g/dL (33.0-37.0); RBC 4.35 Mil/uL (3.80-5.20); RED CELL DISTRIBUTION WIDTH 20.7 % (11.5-14.5); WHITE BLOOD COUNT 13.2 K/uL (4.8-10.8)
[2017-03-26 09:04] LABS: BLOOD UREA NITROGEN 14 mg/dl (7-17); CALCIUM 10.5 mg/dL (8.4-10.2); GFR AFRICAN-AMERICAN > 60; GFR NON-AFRICAN AMERICAN > 60
[2017-03-26] MEDS: Insulin Lispro (humaLOG) 100 Units/ml Inj SC SCH ×2 (09:16→17:17)
[2017-03-26] MEDS: Multi Vitamins 15 mL UD Oral Solution PO SCH (09:17)
[2017-03-26] MEDS: Enoxaparin 40 mg Syringe SC SCH (09:17)
[2017-03-26] MEDS: Lidocaine 5% Patch TD SCH (09:18)
[2017-03-26] MEDS: Piperacillin/Tazobact 3.375 GM in Sodium Chloride 0.9% 100 ML IVPB SCH ×2 (09:23→22:00)
[2017-03-26] MEDS ORDERED: Pamidronate 90 mg/10 ml Inj IVPB ONE (10:00)
--- NOTE | 2017-03-26 10:42 | CP.PCM.PN ---
Subjective - Date & Time of Evaluation Date of Evaluation: 03/26/17 Time of Evaluation: 07:20 - Subjective Subjective: pt seen and examined at bedside this morning, resting comfortably. She denies significant overnight events, or pain. Reports dry mouth, however, able to tolerate liquid diet. Denies cp/sob/n/v Objective - Vital Signs/Intake and Output Vital Signs (last 24 hours): Temp Pulse Resp BP Pulse Ox 98.1 F 63 20 111/61 98 03/26/17 08:07 03/26/17 08:07 03/26/17 08:07 03/26/17 08:07 03/26/17 08:07 - Medications Medications: Current Medications Acetaminophen (Tylenol 325mg Tab) 650 mg PO Q6 PRN PRN Reason: Fever >100.4 F Dextrose (Dextrose 50% Inj) 0 ml IV STAT PRN; Protocol PRN Reason: Hypoglycemia Protocol Dextrose (Glutose 15) 0 gm PO ONCE PRN; Protocol PRN Reason: Hypoglycemia Protocol Enoxaparin Sodium (Lovenox) 40 mg SC DAILY ANILA PRN Reason: Protocol Last Admin: 03/26/17 09:17 Dose: 40 mg Glucagon (Glucagen Diagnostic Kit) 0 mg IM STAT PRN; Protocol PRN Reason: Hypoglycemia Protocol Hydromorphone HCl (Dilaudid) 0.5 mg IVP Q6 PRN PRN Reason: Pain, severe (8-10) Last Admin: 03/23/17 23:29 Dose: 0.5 mg Vancomycin HCl 500 mg/ Sodium (Chloride) 100 mls @ 100 mls/hr IVPB Q12 ANILA PRN Reason: Protocol Last Admin: 03/26/17 09:23 Dose: 100 mls/hr Piperacillin Sod/Tazobactam (Sod 3.375 gm/ Sodium Chloride) 100 mls @ 100 mls/ hr IVPB Q12 ANILA PRN Reason: Protocol Last Admin: 03/26/17 09:23 Dose: 100 mls/hr Pamidronate Disodium 90 mg/ (Sodium Chloride) 510 mls @ 127.5 mls/hr IV ONCE ONE Stop: 03/26/17 14:44 Insulin Detemir (Levemir) 5 units SC HS ANILA Insulin Human Lispro (Humalog) 0 units SC BID ANILA PRN Reason: Protocol Lidocaine (Lidoderm) 1 ea TD DAILY [facility]ILA Last Admin: 03/26/17 09:18 Dose: 1 ea Multivitamins/Vitamin C (Multi-Delyn Liquid) 15 ml PO DAILY [facility] Last Admin: 03/26/17 09:17 Dose: 15 ml Saliva Substitute (Caphosol 15 Ml) 15 ml MM Q4 ANILA - Labs Labs: 03/26/17 07:05 03/26/17 07:05 PT 15.7 Seconds (9.8-13.1) H 03/23/17 18:56 INR 1.4 (0.9-1.2) H 03/23/17 18:56 APTT 23.6 Seconds (25.6-37.1) L 03/23/17 18:56 - Eye Exam Eye Exam: EOMI - ENT Exam ENT Exam: Mucous Membranes Dry - Neck Exam Neck Exam: Full ROM - Respiratory Exam Respiratory Exam: Clear to Ausculation Bilateral, NORMAL BREATHING PATTERN. absent: Wheezes - Cardiovascular Exam Cardiovascular Exam: REGULAR RHYTHM, +S1, +S2 - Extremities Exam Extremities Exam: absent: Calf Tenderness - Neurological Exam Neurological Exam: Alert, Awake, CN II-XII Intact - Psychiatric Exam Psychiatric exam: Normal Affect, Normal Mood Assessment and Plan - Assessment and Plan (Free Text) Plan: 66 yo ,f, Pmhx/o DM, HLD, Lung Ca, Osteoporosis admitted for Dehydration, Severe Hypercalcemia, Failure to thrive 1) Left Lung Ca: stage IV NSCLC -CT C/A/P with GEETA mass and possible mediastinal LN involvement and involves b/ l lung lobe mets -Biopsy Lung: Squamous cell carcinoma 02/27/17 -CXR: GEETA lung increased in size compared with last CXR, with left deviation of trachea and left main bronchi -Hem-Onc: Dr Dumont: start bisphosphonates -supportive care; Recommended home hospice with family meeting which was held yesterday. 2) Dehydration -secondary to malignancy, low oral intake and dysphagia x 3 weeks -bun/Cr 47/0.7; 20/0.6 @ 03/25/2017 -s/p IV fluids NS 2l -PO liquid diet 3) Hypercalcemia 2/2 malignancy - CA: 14; f/u value 12.2 -s/p hydration -Hem-Onc: Dr Dumont start bisphosphonates this AM -restart Alendronate after current progression from liquid diet to solids 4) Leukocytosis -may be secondary respiratory infection (patient recent discharged from hospital ) -aspiration PNA secondary to dysphagia -c/w Vancomycin/Zosyn; Vanc trough: 15.5 03/26/2017 -UCX: neg; blood culture: prelim 48 hr: no growth 5) Dysphagia -secondary to left lung Ca -swallow test: pt able to start on PO liquid; begin trial of soft solid diet -dry mouth: prescribed saliva substitute 6) DM -Uncontrolled -Hyperglycemia 430 mg/dl -s/p insulin Ed -Levamir 5 u qhs -Humalog BID 7) Pain management -lumbar -lidoderm patch 8) Cachectic -secondary to malignancy -weight loss 30 lbs in 1 month 9) DVT Prophylaxis -Lovenox 40 mg sc daily (pt refused 03/24/2017; resumed 03/25/2017) 10) Line -Heidi hernandez
[2017-03-26] MEDS: Saliva Substitute(Caphosol) 15 ML SOL MM SCH ×4 (12:51→21:21)
--- NOTE | 2017-03-26 21:04 | CP.PCM.PN ---
Subjective - Date & Time of Evaluation Date of Evaluation: 03/26/17 Time of Evaluation: 19:00 - Subjective Subjective: for hospice eval Objective - Vital Signs/Intake and Output Vital Signs (last 24 hours): Temp Pulse Resp BP Pulse Ox 97.8 F 80 20 125/74 96 03/26/17 16:02 03/26/17 16:02 03/26/17 16:02 03/26/17 16:02 03/26/17 16:02 Intake and Output: 03/26/17 03/27/17 18:59 06:59 Output Total 1000 Balance -1000 - Medications Medications: Current Medications Acetaminophen (Tylenol 325mg Tab) 650 mg PO Q6 PRN PRN Reason: Fever >100.4 F Dextrose (Dextrose 50% Inj) 0 ml IV STAT PRN; Protocol PRN Reason: Hypoglycemia Protocol Dextrose (Glutose 15) 0 gm PO ONCE PRN; Protocol PRN Reason: Hypoglycemia Protocol Enoxaparin Sodium (Lovenox) 40 mg SC DAILY ANILA PRN Reason: Protocol Last Admin: 03/26/17 09:17 Dose: 40 mg Glucagon (Glucagen Diagnostic Kit) 0 mg IM STAT PRN; Protocol PRN Reason: Hypoglycemia Protocol Hydromorphone HCl (Dilaudid) 0.5 mg IVP Q6 PRN PRN Reason: Pain, severe (8-10) Last Admin: 03/23/17 23:29 Dose: 0.5 mg Vancomycin HCl 500 mg/ Sodium (Chloride) 100 mls @ 100 mls/hr IVPB Q12 ANILA PRN Reason: Protocol Last Admin: 03/26/17 09:23 Dose: 100 mls/hr Piperacillin Sod/Tazobactam (Sod 3.375 gm/ Sodium Chloride) 100 mls @ 100 mls/ hr IVPB Q12 ANILA PRN Reason: Protocol Last Admin: 03/26/17 09:23 Dose: 100 mls/hr Insulin Detemir (Levemir) 5 units SC HS COUNT INCLUDES [facility] Insulin Human Lispro (Humalog) 0 units SC BID ANILA PRN Reason: Protocol Last Admin: 03/26/17 17:17 Dose: 5 units Lidocaine (Lidoderm) 1 ea TD DAILY [facility]CLUDES [facility] Last Admin: 03/26/17 09:18 Dose: 1 ea Multivitamins/Vitamin C (Multi-Delyn Liquid) 15 ml PO DAILY COUNT [facility]CLUDES [facility] Last Admin: 03/26/17 09:17 Dose: 15 ml Saliva Substitute (Caphosol 15 Ml) 15 ml MM Q4 ANILA Last Admin: 03/26/17 17:17 Dose: 15 ml - Labs Labs: 03/26/17 07:05 03/26/17 07:05 PT 15.7 Seconds (9.8-13.1) H 03/23/17 18:56 INR 1.4 (0.9-1.2) H 03/23/17 18:56 APTT 23.6 Seconds (25.6-37.1) L 03/23/17 18:56 - Head Exam Head Exam: ATRAUMATIC - Eye Exam Eye Exam: Normal appearance - ENT Exam ENT Exam: Mucous Membranes Dry - Respiratory Exam Respiratory Exam: NORMAL BREATHING PATTERN - Cardiovascular Exam Cardiovascular Exam: +S1, +S2 - GI/Abdominal Exam GI & Abdominal Exam: Normal Bowel Sounds Assessment and Plan (1) Hypercalcemia Assessment & Plan: improving bisphosphonate tx today Status: Acute (2) Lung cancer Assessment & Plan: for hospice eval DNR/DNI Status: Acute (3) Anemia Status: Acute (4) Leukocytosis Status: Acute (5) Coagulopathy Status: Acute
[2017-03-26] MEDS ORDERED: Insulin Detemir 100 Units/ml Inj SC SCH (22:00)
[2017-03-26 23:45] VITALS: PULSE 78; O2SAT 97
[2017-03-27] MEDS: Saliva Substitute(Caphosol) 15 ML SOL MM SCH ×2 (01:21→05:00)
[2017-03-27 08:43] VITALS: BP 108/66; RESP 20; TEMP 97.4
--- NOTE | 2017-03-27 09:27 | CP.PCM.PN ---
Subjective - Date & Time of Evaluation Date of Evaluation: 03/27/17 Time of Evaluation: 07:50 Objective - Vital Signs/Intake and Output Vital Signs (last 24 hours): Temp Pulse Resp BP Pulse Ox 97.4 F L 78 20 108/66 97 03/27/17 08:42 03/27/17 08:42 03/27/17 08:42 03/27/17 08:42 03/27/17 08:42 - Medications Medications: Current Medications Acetaminophen (Tylenol 325mg Tab) 650 mg PO Q6 PRN PRN Reason: Fever >100.4 F Dextrose (Dextrose 50% Inj) 0 ml IV STAT PRN; Protocol PRN Reason: Hypoglycemia Protocol Dextrose (Glutose 15) 0 gm PO ONCE PRN; Protocol PRN Reason: Hypoglycemia Protocol Enoxaparin Sodium (Lovenox) 40 mg SC DAILY ANILA PRN Reason: Protocol Last Admin: 03/26/17 09:17 Dose: 40 mg Glucagon (Glucagen Diagnostic Kit) 0 mg IM STAT PRN; Protocol PRN Reason: Hypoglycemia Protocol Hydromorphone HCl (Dilaudid) 0.5 mg IVP Q6 PRN PRN Reason: Pain, severe (8-10) Last Admin: 03/23/17 23:29 Dose: 0.5 mg Vancomycin HCl 500 mg/ Sodium (Chloride) 100 mls @ 100 mls/hr IVPB Q12 ANILA PRN Reason: Protocol Last Admin: 03/26/17 21:00 Dose: 100 mls/hr Piperacillin Sod/Tazobactam (Sod 3.375 gm/ Sodium Chloride) 100 mls @ 100 mls/ hr IVPB Q12 ANILA PRN Reason: Protocol Last Admin: 03/26/17 22:00 Dose: 100 mls/hr Insulin Detemir (Levemir) 5 units SC HS ANILA Last Admin: 03/26/17 21:25 Dose: 5 units Insulin Human Lispro (Humalog) 0 units SC BID ANILA PRN Reason: Protocol Last Admin: 03/26/17 17:17 Dose: 5 units Lidocaine (Lidoderm) 1 ea TD DAILY [facility] Last Admin: 03/26/17 09:18 Dose: 1 ea Multivitamins/Vitamin C (Multi-Delyn Liquid) 15 ml PO DAILY ANILA Last Admin: 03/26/17 09:17 Dose: 15 ml Saliva Substitute (Caphosol 15 Ml) 15 ml MM Q4 ANILA Last Admin: 03/27/17 05:00 Dose: Not Given - Labs Labs: 03/26/17 07:05 03/26/17 07:05 PT 15.7 Seconds (9.8-13.1) H 03/23/17 18:56 INR 1.4 (0.9-1.2) H 03/23/17 18:56 APTT 23.6 Seconds (25.6-37.1) L 03/23/17 18:56
[2017-03-27] MEDS: Insulin Lispro (humaLOG) 100 Units/ml Inj SC SCH (09:31)
[2017-03-27] MEDS: Lidocaine 5% Patch TD SCH (09:32)
[2017-03-27] MEDS: Multi Vitamins 15 mL UD Oral Solution PO SCH (09:32)
[2017-03-27] MEDS: Enoxaparin 40 mg Syringe SC SCH (09:32)
[2017-03-27] MEDS: Piperacillin/Tazobact 3.375 GM in Sodium Chloride 0.9% 100 ML IVPB SCH (09:33)
--- NOTE | 2017-03-27 12:30 | CP.PCM.DIS ---
<Lester Chávez - Last Filed: 03/27/17 12:28> Provider - Provider Date of Admission: 03/23/17 20:08 Attending physician: Mila Dougherty MD Time Spent in preparation of Discharge (in minutes): 25 Hospital Course - Lab Results Lab Results: Micro Results 03/23/17 19:00 Blood-Venous Blood Culture - Preliminary NO GROWTH AFTER 3 DAYS 03/23/17 18:45 Blood-Venous Blood Culture - Preliminary NO GROWTH AFTER 3 DAYS 03/23/17 21:40 Urine,Dubois Urine Culture - Final No Growth (<1,000 CFU/ML) Most Recent Lab Values WBC 13.2 K/uL (4.8-10.8) H 03/26/17 07:05 RBC 4.35 Mil/uL (3.80-5.20) 03/26/17 07:05 Hgb 10.0 g/dL (12.0-16.0) L 03/26/17 07:05 Hct 32.0 % (34.0-47.0) L 03/26/17 07:05 MCV 73.5 fl (81.0-99.0) L 03/26/17 07:05 MCH 23.1 pg (27.0-31.0) L 03/26/17 07:05 MCHC 31.4 g/dL (33.0-37.0) L 03/26/17 07:05 RDW 20.7 % (11.5-14.5) H 03/26/17 07:05 Plt Count 413 K/uL (130-400) H 03/26/17 07:05 MPV 8.5 fl (7.2-11.7) 03/24/17 04:20 Neut % (Auto) 82.6 % (50.0-75.0) H 03/24/17 04:20 Lymph % (Auto) 5.9 % (20.0-40.0) L 03/24/17 04:20 Foard % (Auto) 10.5 % (0.0-10.0) H 03/24/17 04:20 Eos % (Auto) 0.7 % (0.0-4.0) 03/24/17 04:20 Baso % (Auto) 0.3 % (0.0-2.0) 03/24/17 04:20 Neut # (Auto) 14.0 K/uL (1.8-7.0) H 03/24/17 04:20 Lymph # (Auto) 1.0 K/uL (1.0-4.3) 03/24/17 04:20 Foard # (Auto) 1.8 K/uL (0.0-0.8) H 03/24/17 04:20 Eos # (Auto) 0.1 K/uL (0.0-0.7) 03/24/17 04:20 Baso # (Auto) 0.0 K/uL (0.0-0.2) 03/24/17 04:20 Neutrophils % (Manual) 90 % (42-75) H 03/23/17 18:56 Lymphocytes % (Manual) 8 % (20-50) L 03/23/17 18:56 Monocytes % (Manual) 2 % (0-10) 03/23/17 18:56 Platelet Estimate Increased (NORMAL) H 03/23/17 18:56 Hypochromasia (manual) Slight 03/23/17 18:56 Anisocytosis (manual) Moderate 03/23/17 18:56 Microcytosis (manual) Slight 03/23/17 18:56 Target Cells Slight 03/23/17 18:56 Rouleaux Slight 03/23/17 18:56 PT 15.7 Seconds (9.8-13.1) H 03/23/17 18:56 INR 1.4 (0.9-1.2) H 03/23/17 18:56 APTT 23.6 Seconds (25.6-37.1) L 03/23/17 18:56 pO2 34 mm/Hg (30-55) 03/23/17 18:34 VBG pH 7.41 (7.32-7.43) 03/23/17 18:34 VBG pCO2 44 mmHg (40-60) 03/23/17 18:34 VBG HCO3 26.3 mmol/L 03/23/17 18:34 VBG Total CO2 29.3 mmol/L (22-28) H 03/23/17 18:34 VBG O2 Sat (Calc) 65.3 % (40-65) H 03/23/17 18:34 VBG Base Excess 2.8 mmol/L (0.0-2.0) H 03/23/17 18:34 VBG Potassium 4.1 mmol/L (3.6-5.2) 03/23/17 18:34 Sodium 138.0 mmol/L (132-148) 03/23/17 18:34 Chloride 101.0 mmol/L (98-107) 03/23/17 18:34 Glucose 432 mg/dL (65-105) H* 03/23/17 18:34 Lactate 1.9 mmol/L (0.7-2.1) 03/23/17 18:34 FiO2 21.0 % 03/23/17 18:34 Crit Value Called To 03/23/17 18:34 Crit Value Called By Dr elena borja 03/23/17 18:34 Crit Value Read Back Y 03/23/17 18:34 Blood Gas Notified Time 19003/23/17 18:34 Sodium 147 mmol/l (132-148) 03/26/17 07:05 Potassium 3.0 MMOL/L (3.6-5.0) L 03/26/17 07:05 Chloride 109 mmol/L (98-107) H 03/26/17 07:05 Carbon Dioxide 29 mmol/L (22-30) 03/26/17 07:05 Anion Gap 12 (10-20) 03/26/17 07:05 BUN 14 mg/dl (7-17) 03/26/17 07:05 Creatinine 0.6 mg/dl (0.7-1.2) L 03/26/17 07:05 Est GFR ( Amer) > 60 03/26/17 07:05 Est GFR (Non-Af Amer) > 60 03/26/17 07:05 POC Glucose (mg/dL) 279 mg/dL (65-110) H 03/27/17 10:53 Random Glucose 378 mg/dL (65-105) H 03/26/17 07:05 Lactic Acid 1.3 MMOL/L (0.7-2.1) 03/24/17 04:20 Calcium 10.5 mg/dL (8.4-10.2) H 03/26/17 07:05 Phosphorus 2.9 mg/dl (2.5-4.5) 03/23/17 18:56 Magnesium 2.2 MG/DL (1.6-2.3) 03/23/17 18:56 Total Bilirubin 0.3 mg/dl (0.2-1.3) 03/24/17 04:20 AST 27 U/L (14-36) 03/24/17 04:20 ALT 29 U/L (9-52) 03/24/17 04:20 Alkaline Phosphatase 117 U/L (38-126) 03/24/17 04:20 Troponin I 0.0160 ng/mL (0.00-0.120) 03/24/17 11:57 Total Protein 7.6 G/DL (6.3-8.2) 03/24/17 04:20 Albumin 2.7 g/dL (3.5-5.0) L D 03/24/17 04:20 Globulin 4.9 gm/dL (2.2-3.9) H 03/24/17 04:20 Albumin/Globulin Ratio 0.6 (1.0-2.1) L 03/24/17 04:20 Lipase 15 U/L (23-300) L 03/23/17 18:56 Procalcitonin 0.34 NG/ML (0.19-0.49) 03/24/17 04:20 Venous Blood Potassium 4.1 mmol/L (3.6-5.2) 03/23/17 18:34 Urine Color Yellow (YELLOW) 03/23/17 21:40 Urine Clarity Slighty-cloudy (Clear) 03/23/17 21:40 Urine pH 5.0 (5.0-8.0) 03/23/17 21:40 Ur Specific Alborn 1.021 (1.003-1.030) 03/23/17 21:40 Urine Protein 30 mg/dL (NEGATIVE) 03/23/17 21:40 Urine Glucose (UA) >=500 mg/dL (Normal) 03/23/17 21:40 Urine Ketones Trace mg/dL (NEGATIVE) 03/23/17 21:40 Urine Blood Negative (NEGATIVE) 03/23/17 21:40 Urine Nitrate Negative (NEGATIVE) 03/23/17 21:40 Urine Bilirubin Negative (NEGATIVE) 03/23/17 21:40 Urine Urobilinogen 0.2-1.0 mg/dL (0.2-1.0) 03/23/17 21:40 Ur Leukocyte Esterase Neg Arlen/uL (Negative) 03/23/17 21:40 Urine RBC (Auto) 1 /hpf (0-3) 03/23/17 21:40 Urine Microscopic WBC 2 /hpf (0-5) 03/23/17 21:40 Urine Bacteria Rare (<OCC) 03/23/17 21:40 Hyaline Casts 0-2 /hpf (0-2) 03/23/17 21:40 Ur Random Creatinine 52.6 mg/dL 03/23/17 22:37 Ur Random Sodium 49 meq/L 03/23/17 22:37 Ur Random Potassium 45.6 mmol/L 03/23/17 22:37 Vancomycin Trough 15.5 ug/mL (5.0-10.0) H 03/26/17 07:05 Blood Type A POSITIVE 03/23/17 18:45 Antibody Screen Negative 03/23/17 18:45 BBK History Checked Patient has bt 03/23/17 18:45 - Hospital Course Hospital Course: 66 yo F Pmhx/o DM, HLD, Stage IV Lung Ca, Osteoporosis admitted for Dehydration , Severe Hypercalcemia, Failure to thrive. IVF hydration, on solid diet. Bisphosphonates started by Dr. Dumont. Family meeting discussed further care. Pt to be dc to home hospice. Discharge Exam - Head Exam Head Exam: ATRAUMATIC Discharge Plan - Discharge Medications Prescriptions: Alendronate [Fosamax] 70 mg PO QD7 30 Days tab Ferrous Sulfate [Feosol] 325 mg PO TID 30 Days #90 tab Pravastatin Sodium [Pravachol] 20 mg PO HS #30 tab Sitagliptin Phos/Metformin HCl [Janumet Xr 100-1,000 mg Tablet] 1 tab PO DAILY # 30 tbmp.24hr - Follow Up Plan Condition: GUARDED Disposition: HOME/ ROUTINE Instructions: Failure to Thrive (DC), Dehydration (DC), Hospice (DC), Leukocytosis (DC) Referrals: Lisa Neri MD [Resident] - <Alba Rodriguez - Last Filed: 03/28/17 09:29> Provider - Provider Date of Admission: 03/23/17 20:08 Attending physician: Mila Dougherty MD Hospital Course - Lab Results Lab Results: Micro Results 03/23/17 19:00 Blood-Venous Blood Culture - Preliminary NO GROWTH AFTER 4 DAYS 03/23/17 18:45 Blood-Venous Blood Culture - Preliminary NO GROWTH AFTER 4 DAYS 03/23/17 21:40 Urine,Dubois Urine Culture - Final No Growth (<1,000 CFU/ML) Most Recent Lab Values WBC 13.2 K/uL (4.8-10.8) H 03/26/17 07:05 RBC 4.35 Mil/uL (3.80-5.20) 03/26/17 07:05 Hgb 10.0 g/dL (12.0-16.0) L 03/26/17 07:05 Hct 32.0 % (34.0-47.0) L 03/26/17 07:05 MCV 73.5 fl (81.0-99.0) L 03/26/17 07:05 MCH 23.1 pg (27.0-31.0) L 03/26/17 07:05 MCHC 31.4 g/dL (33.0-37.0) L 03/26/17 07:05 RDW 20.7 % (11.5-14.5) H 03/26/17 07:05 Plt Count 413 K/uL (130-400) H 03/26/17 07:05 MPV 8.5 fl (7.2-11.7) 03/24/17 04:20 Neut % (Auto) 82.6 % (50.0-75.0) H 03/24/17 04:20 Lymph % (Auto) 5.9 % (20.0-40.0) L 03/24/17 04:20 Foard % (Auto) 10.5 % (0.0-10.0) H 03/24/17 04:20 Eos % (Auto) 0.7 % (0.0-4.0) 03/24/17 04:20 Baso % (Auto) 0.3 % (0.0-2.0) 03/24/17 04:20 Neut # (Auto) 14.0 K/uL (1.8-7.0) H 03/24/17 04:20 Lymph # (Auto) 1.0 K/uL (1.0-4.3) 03/24/17 04:20 Foard # (Auto) 1.8 K/uL (0.0-0.8) H 03/24/17 04:20 Eos # (Auto) 0.1 K/uL (0.0-0.7) 03/24/17 04:20 Baso # (Auto) 0.0 K/uL (0.0-0.2) 03/24/17 04:20 Neutrophils % (Manual) 90 % (42-75) H 03/23/17 18:56 Lymphocytes % (Manual) 8 % (20-50) L 03/23/17 18:56 Monocytes % (Manual) 2 % (0-10) 03/23/17 18:56 Platelet Estimate Increased (NORMAL) H 03/23/17 18:56 Hypochromasia (manual) Slight 03/23/17 18:56 Anisocytosis (manual) Moderate 03/23/17 18:56 Microcytosis (manual) Slight 03/23/17 18:56 Target Cells Slight 03/23/17 18:56 Rouleaux Slight 03/23/17 18:56 PT 15.7 Seconds (9.8-13.1) H 03/23/17 18:56 INR 1.4 (0.9-1.2) H 03/23/17 18:56 APTT 23.6 Seconds (25.6-37.1) L 03/23/17 18:56 pO2 34 mm/Hg (30-55) 03/23/17 18:34 VBG pH 7.41 (7.32-7.43) 03/23/17 18:34 VBG pCO2 44 mmHg (40-60) 03/23/17 18:34 VBG HCO3 26.3 mmol/L 03/23/17 18:34 VBG Total CO2 29.3 mmol/L (22-28) H 03/23/17 18:34 VBG O2 Sat (Calc) 65.3 % (40-65) H 03/23/17 18:34 VBG Base Excess 2.8 mmol/L (0.0-2.0) H 03/23/17 18:34 VBG Potassium 4.1 mmol/L (3.6-5.2) 03/23/17 18:34 Sodium 138.0 mmol/L (132-148) 03/23/17 18:34 Chloride 101.0 mmol/L (98-107) 03/23/17 18:34 Glucose 432 mg/dL (65-105) H* 03/23/17 18:34 Lactate 1.9 mmol/L (0.7-2.1) 03/23/17 18:34 FiO2 21.0 % 03/23/17 18:34 Crit Value Called To Denilson 03/23/17 18:34 Crit Value Called By Dr elena borja 03/23/17 18:34 Crit Value Read Back Y 03/23/17 18:34 Blood Gas Notified Time 19003/23/17 18:34 Sodium 147 mmol/l (132-148) 03/26/17 07:05 Potassium 3.0 MMOL/L (3.6-5.0) L 03/26/17 07:05 Chloride 109 mmol/L (98-107) H 03/26/17 07:05 Carbon Dioxide 29 mmol/L (22-30) 03/26/17 07:05 Anion Gap 12 (10-20) 03/26/17 07:05 BUN 14 mg/dl (7-17) 03/26/17 07:05 Creatinine 0.6 mg/dl (0.7-1.2) L 03/26/17 07:05 Est GFR ( Amer) > 60 03/26/17 07:05 Est GFR (Non-Af Amer) > 60 03/26/17 07:05 POC Glucose (mg/dL) 279 mg/dL (65-110) H 03/27/17 10:53 Random Glucose 378 mg/dL (65-105) H 03/26/17 07:05 Lactic Acid 1.3 MMOL/L (0.7-2.1) 03/24/17 04:20 Calcium 10.5 mg/dL (8.4-10.2) H 03/26/17 07:05 Phosphorus 2.9 mg/dl (2.5-4.5) 03/23/17 18:56 Magnesium 2.2 MG/DL (1.6-2.3) 03/23/17 18:56 Total Bilirubin 0.3 mg/dl (0.2-1.3) 03/24/17 04:20 AST 27 U/L (14-36) 03/24/17 04:20 ALT 29 U/L (9-52) 03/24/17 04:20 Alkaline Phosphatase 117 U/L (38-126) 03/24/17 04:20 Troponin I 0.0160 ng/mL (0.00-0.120) 03/24/17 11:57 Total Protein 7.6 G/DL (6.3-8.2) 03/24/17 04:20 Albumin 2.7 g/dL (3.5-5.0) L D 03/24/17 04:20 Globulin 4.9 gm/dL (2.2-3.9) H 03/24/17 04:20 Albumin/Globulin Ratio 0.6 (1.0-2.1) L 03/24/17 04:20 Lipase 15 U/L (23-300) L 03/23/17 18:56 Procalcitonin 0.34 NG/ML (0.19-0.49) 03/24/17 04:20 Venous Blood Potassium 4.1 mmol/L (3.6-5.2) 03/23/17 18:34 Urine Color Yellow (YELLOW) 03/23/17 21:40 Urine Clarity Slighty-cloudy (Clear) 03/23/17 21:40 Urine pH 5.0 (5.0-8.0) 03/23/17 21:40 Ur Specific Alborn 1.021 (1.003-1.030) 03/23/17 21:40 Urine Protein 30 mg/dL (NEGATIVE) 03/23/17 21:40 Urine Glucose (UA) >=500 mg/dL (Normal) 03/23/17 21:40 Urine Ketones Trace mg/dL (NEGATIVE) 03/23/17 21:40 Urine Blood Negative (NEGATIVE) 03/23/17 21:40 Urine Nitrate Negative (NEGATIVE) 03/23/17 21:40 Urine Bilirubin Negative (NEGATIVE) 03/23/17 21:40 Urine Urobilinogen 0.2-1.0 mg/dL (0.2-1.0) 03/23/17 21:40 Ur Leukocyte Esterase Neg Arlen/uL (Negative) 03/23/17 21:40 Urine RBC (Auto) 1 /hpf (0-3) 03/23/17 21:40 Urine Microscopic WBC 2 /hpf (0-5) 03/23/17 21:40 Urine Bacteria Rare (<OCC) 03/23/17 21:40 Hyaline Casts 0-2 /hpf (0-2) 03/23/17 21:40 Ur Random Creatinine 52.6 mg/dL 03/23/17 22:37 Ur Random Sodium 49 meq/L 03/23/17 22:37 Ur Random Potassium 45.6 mmol/L 03/23/17 22:37 Vancomycin Trough 15.5 ug/mL (5.0-10.0) H 03/26/17 07:05 Blood Type A POSITIVE 03/23/17 18:45 Antibody Screen Negative 03/23/17 18:45 BBK History Checked Patient has bt 03/23/17 18:45 Progress - Progress Progress: ATTESTATION ATTENDING NOTE PATIENT HAS BEEN SEEN AND EXAMINED. CASE DISCUSSED WITH RESIDENT, AGREE WITH FINDINGS AND PLAN.
== END 2017-03-27 14:51 | disposition hospice, home (50) | DRG 640 ==
LOC: H.ER 18:10 → H.ERHOLD 20:08 → H.TEL 22:18 → H.MEDSURG1 03-24 22:57
PROVIDERS: ADMIT Family Medicine Geriatric Medicine; ATTEND Family Medicine Geriatric Medicine
DX: E86.0 Dehydration (principal); J69.0 Pneumonitis due to inhalation of food and vomit; D68.9 Coagulation defect, unspecified; J43.9 Emphysema, unspecified; R64 Cachexia; E83.52 Hypercalcemia; C34.12 Malignant neoplasm of upper lobe, left bronchus or lung; E11.65 Type 2 diabetes mellitus with hyperglycemia; Z68.1 Body mass index [BMI] 19.9 or less, adult; R13.10 Dysphagia, unspecified; D63.0 Anemia in neoplastic disease; R62.7 Adult failure to thrive; M81.0 Age-related osteoporosis without current pathological fracture; E78.5 Hyperlipidemia, unspecified; Z79.4 Long term (current) use of insulin; D72.829 Elevated white blood cell count, unspecified; K56.41 Fecal impaction; F17.200 Nicotine dependence, unspecified, uncomplicated